=== PATIENT | male | born 1945 | race Two or more races ===

== ENCOUNTER 2019-07-11 12:03 | Inpatient (IN) | payer MEDICAID, OTHER ==
[~2019-07-11] VITALS: Ht 175.3 cm; Wt 84.0 kg
[2019-07-11 13:30] LABS: Basophils # (auto) 0 uL; Basophils % (auto) 0.3 % (0.0-2.0); Eosinophils # (auto) 0.1 uL; Eosinophils % (auto) 1.2 % (0.0-7.0); Hematocrit 38.4 % (41.0-53.0); Hemoglobin 12.9 g/dL (13.5-17.5); Lymphocytes # (auto) 1.1 uL; Lymphocytes % (auto) 11.8 % (10.0-50.0); Mean Corpuscular Hemoglobin 29.6 pg (28.0-32.0); Mean Corpuscular Hgb Conc. 33.5 g/dL (32.0-36.0); Mean Corpuscular Volume 88.3 fL (80.0-100.0); Monocytes # (auto) 1.4 uL; Monocytes % (auto) 15.8 % (0.0-12.0); Neutrophils # (auto) 6.3 uL; Neutrophils % (auto) 70.9 % (37.0-80.0); Platelet Count (auto) 250 10^3/uL (140-450); Red Blood Cells 4.35 10^6/uL (4.5-5.90); Red Cell Distribution Width 13.7 % (11.8-14.3); White Blood Cell 8.9 10^3/uL (4.4-10.8)
[2019-07-11 13:53] LABS: Alanine Aminotransferase 51 U/L (16-61); Albumin 3.1 g/dL (3.4-5.0); Anion Gap 8 (5-15); Aspartate Aminotransferase 35 U/L (15-37); BUN/Creatinine Ratio 13.2; Blood Urea Nitrogen 15 mg/dL (7-18); Calcium 8.7 mg/dL (8.5-10.1); Carbon Dioxide 24 mmol/L (21-32); Chloride 104 mmol/L (98-107); GFR African American 81 mL/min; GFR Non-African American 67 mL/min; Glucose 106 mg/dL (74-106); INR 1.03 (0.9-1.15); Partial Thromboplastin Time 35.4 sec (23.64-32.05); Potassium 3.9 mmol/L (3.5-5.1); Sodium 136 mmol/L (136-145)
[2019-07-11 13:59] LABS: Alkaline Phosphatase 173 U/L (45-117); Total Protein 7.9 g/dL (6.4-8.2)
[2019-07-11] MEDS ORDERED: ONDANSETRON HCL 4 MG/2 ML VIAL IV PRN (15:00)
[2019-07-11] MEDS ORDERED: cefTRIAXone 1GM/50ML D5W 50 ML IV ONE (15:00)
[2019-07-11] MEDS ORDERED: MORPHINE SULFATE 4 MG/ML SYR/VIAL IV PRN (15:00)
[2019-07-11] MEDS ORDERED: HYDROcodone-ACET 5/325MG TAB PO PRN (15:00)
[2019-07-11] MEDS ORDERED: LEVOFLOXACIN 500MG 100 ML IV ONE (15:00)
[2019-07-11] MEDS ORDERED: AZITHROMYCIN 500MG/ 250ML 250 ML IV ONE (15:00)
[2019-07-11] MEDS ORDERED: IOHEXOL 300 MG/ML 100ML BOTTLE IJ ONE (15:33)
[2019-07-11] MEDS: SODIUM CHLORIDE 0.9% 1,000 ML IV SCH (16:35)
[2019-07-11 17:43] LABS: Urine Bacteria NONE SEEN /hpf (None Seen); Urine Blood TRACE /uL (Negative); Urine Specific Gravity 1.033 (1.001-1.035); Urine WBC <1 /hpf (0 - 3)
--- NOTE | 2019-07-11 17:45 | NUR ---
MS admit from [facility] admitted to tele/MS after SBAR received. Patient oriented to MARIA ISABEL DE LA TORRE RN primary RN, unit, room, bed, and unit policies regarding patient care and visiting hours. patient is Mohawk speaking. Patient is on room air, with complaints of shortness of breath. Patient placed on 2L NC. Patient denies pain at this time. Reviewed plan of care with patient and family, both verbalized understanding. Bed alarm on for safety. Bed in low and locked position, call light within reach. Will continue to monitor Q1 hour and PRN. Family at bedside.
[2019-07-11 18:21] VITALS: BP 141/87
[2019-07-11] MEDS ORDERED: PAR20T PO (19:16)
[2019-07-11] MEDS ORDERED: LOSA100T22 PO (19:16)
[2019-07-11] MEDS ORDERED: OMEP20TA PO (19:16)
[2019-07-11] MEDS ORDERED: ASPI-404 PO (19:16)
[2019-07-11] MEDS ORDERED: NAP500T PO (19:16)
[2019-07-11] MEDS ORDERED: ATOR10TA52 PO (19:16)
[2019-07-11] MEDS ORDERED: TEMAZEPAM 15 MG CAP PO PRN (20:00)
--- NOTE | 2019-07-11 20:30 | NUR ---
PATIENT DAUGHTER REY, HAD QUESTIONS REGARDING PT HOME MEDICATIONS. UPDATED PATIENT HOME MEDICATION LIST INFORMED MEDICATIONS NEED TO BE APPROVED BY PRIMARY CARE PROVIDER AND HOMES MEDICATIONS SENT BACK HOME. DAUGHTER VERBALIZES UNDERSTANDING, AND INFORMED HER PROVIDER WILL BE MADE AWARE.
[2019-07-11] MEDS: ACETAMINOPHEN 500 MG TAB PO PRN (21:27)
[2019-07-11 22:00] VITALS: BP 116/55
[2019-07-11] MEDS ORDERED: ATORVASTATIN 20 MG TAB PO SCH (22:00)
[2019-07-12] MEDS: SODIUM CHLORIDE 0.9% 1,000 ML IV SCH (04:20)
[2019-07-12 05:00] VITALS: BP 117/61
--- NOTE | 2019-07-12 08:00 | NUR ---
BEGINNING OF SHIFT. PATIENT IS ALERT AND ORIENTED X2. HONG KONGER SPEAKING ONLY. PATIENT IS ON OXYGEN 2L. VITAL SIGNS WNL. PATIENT EXHIBITS COARSE BREATH SOUNDS AND COUGH. PATIENT SHOWS NO ACUTE S/S OF DISTRESS. FAMILY IS AT BEDSIDE. BED IS IN LOWEST POSITION, SIDE RAILS UP X2, AND CALL LIGHT WITHIN REACH.
[2019-07-12 08:36] LABS: Basophils # (auto) 0.1 uL; Basophils % (auto) 0.6 % (0.0-2.0); Eosinophils # (auto) 0.4 uL; Eosinophils % (auto) 4.2 % (0.0-7.0); Hematocrit 38.4 % (41.0-53.0); Lymphocytes # (auto) 1.8 uL; Lymphocytes % (auto) 17.1 % (10.0-50.0); Mean Corpuscular Hemoglobin 29.1 pg (28.0-32.0); Mean Corpuscular Hgb Conc. 31.3 g/dL (32.0-36.0); Monocytes % (auto) 9.7 % (0.0-12.0); Neutrophils % (auto) 68.4 % (37.0-80.0); Nucleated Red Blood Cells % 0.1 %; Platelet Count (auto) 293 10^3/uL (140-450); Red Blood Cells 4.13 10^6/uL (4.5-5.90); White Blood Cell 10.3 10^3/uL (4.4-10.8)
[2019-07-12 08:50] LABS: BUN/Creatinine Ratio 28.4; Calcium 8.6 mg/dL (8.5-10.1); Potassium 4.4 mmol/L (3.5-5.1)
[2019-07-12] MEDS ORDERED: cefTRIAXone 1GM/50ML D5W 50 ML IV SCH (09:00)
[2019-07-12] MEDS ORDERED: PARoxetine 20 MG TAB PO SCH (10:00)
[2019-07-12] MEDS ORDERED: LOSARTAN POTASSIUM 50 MG TAB PO SCH (10:00)
[2019-07-12] MEDS: AZITHROMYCIN 500MG/ 250ML 250 ML IV SCH (10:21)
[2019-07-12] MEDS: ASPirin 81 mg TAB PO SCH (10:21)
--- NOTE | 2019-07-12 12:30 | NUR ---
DR. KITCHEN AT BEDSIDE. Jaquelin STATES PATIENT WILL BE UPGRADED TO [facility] FOR FURTHER INTERVENTION. PATIENT HAD COARSE BREATH SOUNDS AND WHEEZING. MED NEBS ORDERED. NEW ORDERS PLACED FOR DIFFERENT ANTIBIOTICS. PATIENT FAMILY AT BEDSIDE. PATIENT IS ALERT AND ORIENTED X2. PATIENT AND FAMILY VERBALIZED UNDERSTANDING TO PLAN OF CARE DISCUSSED BY Jaquelin AND RN.
[2019-07-12 13:00] VITALS: BP 120/60
--- NOTE | 2019-07-12 13:45 | NUR ---
RESPIRATORY CALLED FOR R/T TX. RT STATED THEY WILL BE TO ROOM NEFTALI.
[2019-07-12] MEDS: PIPERACILLIN-TAZOB 3.375GM 100 ML IV SCH ×2 (13:46→22:04)
[2019-07-12 13:50] LABS: BUN/Creatinine Ratio 13.2; Calcium 8.8 mg/dL (8.5-10.1); Potassium 4.2 mmol/L (3.5-5.1)
[2019-07-12] MEDS: IPRATROPIUM BROM 0.5 MG/2.5ML INH SOL NEB SCH ×3 (13:51→21:30)
[2019-07-12] MEDS: ALBUTEROL SULF 2.5 MG/0.5ML(0.5%) NEB SOLN NEB SCH ×3 (13:52→21:30)
--- NOTE | 2019-07-12 15:11 | NUR ---
REPORT GIVEN TO HOLLY IN [facility].
[2019-07-12 15:43] VITALS: BP 119/66
--- NOTE | 2019-07-12 15:50 | NUR ---
Admit to [facility] J[facility] to [facility] from Tele floor via hospital bed on portable 02. Patient transferred to bed, connected to unit monitoring and oxygen, and weighed by [facility]. Patient primary Tamazight speaking, utilize [employer] Champagne Maker System in communicating with Patient. Patient awake and alert. SOB and wheezing, on 2 LPM oxygen via nasal cannula, saturation 93%. Denies pain at this times. See interventions for complete assessment. Bed locked on low poistion, side rails up x2, bed alarms on at all times call fitzpatrick within reach, instructed to call for needed assisstance. Oriented patient and daughter Lina to Florence Talavera primary RN, unit, room, bed, and unit policies regarding patient care and visiting hours. All questions and concerns addressed, patient verbalized understanding. Will continue to monitor.
--- NOTE | 2019-07-12 15:56 | NUR ---
PATIENT TRANSPORTED TO [facility] BED 262 WITH HOLLY SCHILLING PATIENT FAMILY AWARE OF TRANSFER PATIENT SHOWED NO S/S OF DISTRESS, SOB, OR PAIN AT TIME OF DEPARTURE.
[2019-07-12 16:00] VITALS: BP 143/76
[2019-07-12] MEDS: LINEZOLID 600MG/300ML 300 ML IV SCH (16:52)
--- NOTE | 2019-07-12 19:10 | NUR ---
OPENING SHIFT RECEIVED REPORT FROM DAY SHIFT. ASSUMED CARE OF PATIENT. PATIENT IN BED WATCHING TV WITH NO SIGNS OR SYMPTOMS OF SOB, PAIN OR DISTRESS. CURRENTLY ON 2L 02 NASAL CANNULA, 02 SAT - 93%. LEFT FOREARM IV - CLEAN/DRY/INTACT. Revelation TRANSLATE USED TO TRANSLATE AND UPDATED PATIENT ON PLAN OF CARE. REPOSITIONED FOR COMFORT. BED IN LOWEST POSITION, SIDE RAILS UP X2, CALL LIGHT WITHIN REACH. WILL CONTINUE TO MONITOR.
[2019-07-12 20:00] VITALS: BP 151/78
[2019-07-12] MEDS ORDERED: TEMA15CA91 PO (21:39)
--- NOTE | 2019-07-12 22:40 | NUR ---
PM CARE PERFORMED PM CARE WITH CHG WIPES AND WASH CLOTHS TO THE FACE. PARTAL LINEN CHANGE AND GOWN CHANGED. REPOSITIONED FOR COMFORT. SKIN REASSESSED AT THIS TIME. BED IN LOWEST POSITION, SIDE RAILS UP X2, CALL LIGHT WITHIN REACH. WILL CONTINUE TO MONITOR.
[2019-07-13] VITALS: BP 136/72
[2019-07-13 04:00] VITALS: BP 111/75
[2019-07-13] MEDS: LINEZOLID 600MG/300ML 300 ML IV SCH (04:46)
[2019-07-13 05:35] LABS: Basophils # (auto) 0.1 uL; Basophils % (auto) 0.9 % (0.0-2.0); Eosinophils # (auto) 0.1 uL; Eosinophils % (auto) 0.9 % (0.0-7.0); Hematocrit 36.3 % (41.0-53.0); Hemoglobin 12.2 g/dL (13.5-17.5); Lymphocytes # (auto) 1.1 uL; Mean Corpuscular Hemoglobin 29.8 pg (28.0-32.0); Mean Corpuscular Hgb Conc. 33.7 g/dL (32.0-36.0); Mean Corpuscular Volume 88.4 fL (80.0-100.0); Monocytes # (auto) 1.5 uL; Monocytes % (auto) 15.6 % (0.0-12.0); Neutrophils # (auto) 6.6 uL; Neutrophils % (auto) 70.6 % (37.0-80.0); Platelet Count (auto) 259 10^3/uL (140-450); Red Cell Distribution Width 13.5 % (11.8-14.3); White Blood Cell 9.3 10^3/uL (4.4-10.8)
[2019-07-13 05:51] LABS: BUN/Creatinine Ratio 9.5; Calcium 8.4 mg/dL (8.5-10.1); Potassium 4.1 mmol/L (3.5-5.1)
[2019-07-13] MEDS: ALBUTEROL SULF 2.5 MG/0.5ML(0.5%) NEB SOLN NEB SCH ×5 (06:31→21:54)
[2019-07-13] MEDS: IPRATROPIUM BROM 0.5 MG/2.5ML INH SOL NEB SCH ×5 (06:31→21:54)
[2019-07-13] MEDS: PIPERACILLIN-TAZOB 3.375GM 100 ML IV SCH ×3 (06:46→22:06)
--- NOTE | 2019-07-13 07:28 | NUR ---
END OF SHIFT REPORT GIVEN TO DAY SHIFT RN. CARE ENDORSED.
[2019-07-13 08:00] VITALS: BP 152/72
--- NOTE | 2019-07-13 08:00 | NUR ---
REPORT REPORT RECEIVED FROM BERNADETTE RNBONNIE. PT RESTING IN BED WITH NO DISTRESS NOTED. VSS. CONTINUE TO MONITOR.
--- NOTE | 2019-07-13 08:30 | NUR ---
IN FOR ASSESSMENT AND PT EATING BREAKFAST. DENIES ANY PAIN OR SOB. WILL ASSESS AFTER PT FINISHES BREAKFAST.
--- NOTE | 2019-07-13 08:50 | NUR ---
ASSESSMENT PT AWAKE AND A/O X4. MOSTLY VIETNAMESE SPEAKING. ABLE TO FOLLOW SIMPLE PHRASES IN [place]. MOVES ALL EXTREMITIES AND REPOSITIONS SELF IN BED. LUNGS WITH INSPIRATORY RHONCHI AND EXPIRATORY WHEEZING NOTED. O2 AT 3 L/M VIA NC WITH O2 SAT OF 93%. TELE ST [address] IN LEAD I AND II. DENIES ANY PAIN OR SOB. PALPABLE PULSES TO ALL EXTREMITIES. ABD SOFT WITH + BOWEL SOUNDS NOTED. LAST BM WAS 07/12. VOIDS VIA URINAL, NONE AT THIS TIME. IV OF NS AT 75 ML/HR TO LFA AND SITE BENIGN. RAILS UP X4 AND BED IN LOW POSITION FOR PT SAFETY. CONTINUE TO MONITOR.
[2019-07-13] MEDS: ASPirin 81 mg TAB PO SCH (10:33)
[2019-07-13] MEDS: AZITHROMYCIN 500MG/ 250ML 250 ML IV SCH (10:33)
[2019-07-13] MEDS: SODIUM CHLORIDE 0.9% 1,000 ML IV SCH (10:34)
[2019-07-13] MEDS ORDERED: FUROSEMIDE 40 MG/4 ML VIAL IV ONE (11:00)
--- NOTE | 2019-07-13 11:10 | NUR ---
MD VISIT PT SEEN AND EXAMINED BY DR KITCHEN. LUNGS REMAIN CONGESTED AND WITH EXPIRATORY WHEEZES. ORDERS TO STOP IVF AND GIVE LASIX 40 MG IV X1 AND ONE TIME POTASSIUM 20 mEQ PO.
[2019-07-13] MEDS ORDERED: POTASSIUM CHL 20 Meq TABLET PO ONE (11:15)
[2019-07-13 12:00] VITALS: BP 129/68
--- NOTE | 2019-07-13 15:40 | NUR ---
INCONTINENT OF SMALL AMOUNT OF FORMED BROWN BM. PERICARE GIVEN AND PARTIAL LINEN CHANGE DONE.
[2019-07-13 16:00] VITALS: BP 131/85
--- NOTE | 2019-07-13 17:55 | NUR ---
INCONTINENT OF URINE AND COMPLETE LINEN CHANGE DONE. PT NOW COMPLAINING OF BURNING PAIN FROM LEFT IP DOWN TO HIS FOOT. STATES HE HAS BEEN HAVING IT OFF AND ON SINCE YESTERDAY. PAGED DR MORENO TO NOTIFY.
--- NOTE | 2019-07-13 18:20 | NUR ---
SPOKE WITH DR MORENO REGARDING PT'S COMPLAINT OF BURNING PAIN STARTING IN THE LEFT HIP AND GOING DOWN TO HIS FOOT. HE STATES IT STARTED YESTERDAY AND COMES AND GOES. MD WANTS TO ADMINISTER TYLENOL 500 MG PO Q 8 HRS PRN.
[2019-07-13] MEDS: ACETAMINOPHEN 500 MG TAB PO PRN (18:47)
--- NOTE | 2019-07-13 18:51 | NUR ---
PAIN PT MEDICATED WITH TYLENOL 500MG PO FOR C/O PAIN FROM LEFT HIP DOWN TO FOOT. RATES 10/10 BUT STATES PAIN COMES AND GOES.
--- NOTE | 2019-07-13 19:40 | NUR ---
REPORT GIVEN TO INDIGO FLEMING RN.
--- NOTE | 2019-07-13 19:45 | NUR ---
OPENING. PT AWAKE AND A/O X4. ABLE TO FOLLOW SIMPLE COMMANDS. LUNGS COURSE THROUGHOUT. O2 AT 3 L/M VIA NASAL CANNULA WITH O2 SAT OF 93%. SR ON METALLIC YARN SLITTING MACHINE OPERATOR. PALPABLE PULSES X4 EXTREMITIES. NO EDEMA NOTED. DENIES ANY PAIN. ABD SOFT, BOWEL SOUNDS PRESENT. NO BLADDER DISTENSION. SKIN INTACT. EDUCATED PT BRUSHING OPERATOR LIGHT AND NOT TO GET UP WITHOUT ASSISTANCE, VERBALIZED UNDERSTANDING. BED IN LOWEST LOCKED POSITION, IN FULL VIEW OF NURSES STATION. NO PAIN OR DISTRESS AT THIS TIME. VSS, WILL CONTINUE TO MONITOR.
[2019-07-13 20:06] VITALS: BP_SYST 141; BP_SYST 88; BP_DIAS 67
[2019-07-14] VITALS (7 sets, daily range): BP systolic 102–158; BP diastolic 66–98
[2019-07-14] MEDS: PIPERACILLIN-TAZOB 3.375GM 100 ML IV SCH ×3 (05:24→21:57)
[2019-07-14 06:07] LABS: Potassium 4.4 mmol/L (3.5-5.1)
[2019-07-14 06:14] LABS: BUN/Creatinine Ratio 10.7; Calcium 9.3 mg/dL (8.5-10.1)
[2019-07-14] MEDS: ALBUTEROL SULF 2.5 MG/0.5ML(0.5%) NEB SOLN NEB SCH ×5 (06:18→22:32)
[2019-07-14] MEDS: IPRATROPIUM BROM 0.5 MG/2.5ML INH SOL NEB SCH ×5 (06:18→22:33)
--- NOTE | 2019-07-14 07:20 | NUR ---
RECEIVED PATIENT SITTING UP IN THE BED, A/O TIMES 4 WHEN AWAKEN , USING O2 AT 3.5L BY N/C, USES THE URINAL, SPEAKS SOMALI BUT UNDERSTAND A LITTLE PORTUGUESE , ABLE TO FOLLOW COMMANDS, LFA 20G SALINE LOCK FLUSHED AND PATENT DENIES PAIN HAS A DRY COUGH
--- NOTE | 2019-07-14 08:20 | NUR ---
SAT UP IN BED AND ATE HIS BREAKFAST NO HELP NEEDED
--- NOTE | 2019-07-14 09:00 | NUR ---
DAUGHTER IN TO VISIT WITH THE PATIENT
[2019-07-14] MEDS: AZITHROMYCIN 500MG/ 250ML 250 ML IV SCH (09:45)
[2019-07-14] MEDS: ASPirin 81 mg TAB PO SCH (09:45)
[2019-07-14] MEDS: FUROSEMIDE 40 MG/4 ML VIAL IV SCH (09:45)
--- NOTE | 2019-07-14 09:45 | NUR ---
EXPLAIN MEDICATIONS TO THE PATIENT AND HIS DAUGHTER REGARDING THE DOSAGE,USAGE, AND THE SIDE EFFECTS, VERBALIZED THAT THEY UNDERSTOOD AND MEDS GIVEN ORDERED
[2019-07-14] MEDS: POTASSIUM CHL 20 Meq TABLET PO SCH (09:46)
--- NOTE | 2019-07-14 10:40 | NUR ---
DAUGHTER LEFT AND WENT HOME
--- NOTE | 2019-07-14 11:40 | NUR ---
BREATHING TREATMENT BEING GIVEN
--- NOTE | 2019-07-14 12:30 | NUR ---
SAT UP IN THE BED AND ATE HIS LUNCH NO HELP NEEDED
--- NOTE | 2019-07-14 12:33 | NUR ---
Assessment Pt is a 74 yr old Dominican speaking, alert and oriented, male. Assessment conducted through daughter Lorenzo, who translated. Pt lives with daughter Porfirio in the home and with Lorenzo on the weekend. Lorenzo's contact info is [phone] and Porfirio's is [phone]. Prior to admit, pt used a walker to assist with ADL's, but otherwise functioned independently. Porfirio helps to cook, clean and supports the pt financially. Pt stated that he was admitted with pneumonia. In CM meeting, nurse mentioned that the pt might need 02 in the home. Pt didn't know if he had AD on file. Pt's daughter can transport home upon d/c. Pt plans to d/c home upon medical clearance. Addendum: 07/14/19 at 1240 by VANDANA HUTCHINSON SS Amended: Links added.
[2019-07-14] MEDS ORDERED: VANCOMYCIN PER PHARMACY 0 MG IV SCH (13:15)
--- NOTE | 2019-07-14 13:30 | NUR ---
SITTING UP IN BE NO COMPLAINTS DR KITCHEN INTO SEE THE PATIENT AND WROTE FOR TRANSFER TO TELE
--- NOTE | 2019-07-14 14:30 | NUR ---
LYING IN BED WITH EYES CLOSED, NO COMPLAINTS
--- NOTE | 2019-07-14 15:40 | NUR ---
PATIENT BEING TRANSFERRED TO ROOM 246B BY THE BED WITH NURSE BOLA
--- NOTE | 2019-07-14 16:27 | NUR ---
DAUGHTER IN TO SEE THE PATIENT AND EXPRESS TO HER THAT HE IS BEING TRANSFERRED TO ANOTHER ROOM
--- NOTE | 2019-07-14 16:36 | NUR ---
PLACED ON TELE 11 AND REPORT CALLED TO BOLA SCHILLING, PATIENT GOING TO ROOM 246B BY THE BED
--- NOTE | 2019-07-14 16:50 | NUR ---
PATIENT TRANSFERRED TO ROOM 246B FROM [facility]. REPORT RECEIVED FROM NURSE AHN. PATIENT ORIENTED TO HIS ROOM AND PLAN OF CARE. PATIENT SEEMS CALM. NO SIGNS OF DISTRESS OR REPORTS OF PAIN. WILL CONTINUE TO ROUND ON PATIENT. FAMILY AND PATIENT ENCOURAGED TO CALL IF THEY NEED ANYTHING.
[2019-07-14] MEDS: VANCOMYCIN 750mg/250ml 250 ML IV SCH (17:32)
--- NOTE | 2019-07-14 19:20 | NUR ---
Opening Shift Note Assumed care of patient, awake and alert. No S/S of distress/SOB or pain. Bed in lowest locked position, side rails up x2, call light within reach. Family at bedside. Instructed on POC through label coder and to call for assist PRN, will continue to monitor for changes Q1hr and PRN.
--- NOTE | 2019-07-15 00:30 | NUR ---
Epistaxis Entered room after patient hit call fitzpatrick to discover patient had a bloody nose. Epistaxis ceased prior to this RN entering patient's room. No s/s of distress noted. Patient cleaned and linens changed. Humidifier provided for oxygen. Patient tolerated well, will continue care.
[2019-07-15] MEDS: VANCOMYCIN 750mg/250ml 250 ML IV SCH ×2 (04:34→18:14)
[2019-07-15 05:15] VITALS: BP 111/55
[2019-07-15] MEDS: IPRATROPIUM BROM 0.5 MG/2.5ML INH SOL NEB SCH ×5 (06:01→22:53)
[2019-07-15] MEDS: ALBUTEROL SULF 2.5 MG/0.5ML(0.5%) NEB SOLN NEB SCH ×5 (06:01→22:53)
[2019-07-15] MEDS: PIPERACILLIN-TAZOB 3.375GM 100 ML IV SCH (06:40)
[2019-07-15 06:58] LABS: Calcium 8.8 mg/dL (8.5-10.1); Potassium 4.3 mmol/L (3.5-5.1)
--- NOTE | 2019-07-15 07:05 | NUR ---
Closing Note Patient lying in bed, awake and alert. No s/s of distress. Bed in lowest locked position, side rails up x2, call light within reach, bed alarm on. Care endorsed to dayshift RN.
--- NOTE | 2019-07-15 07:30 | NUR ---
Opening Shift Note Assumed care of patient, awake and alert. No S/S of distress/SOB or pain. Instructed on POC and to call for assist PRN, will continue to monitor for changes Q1hr and PRN.
[2019-07-15 07:31] VITALS: BP 111/55
[2019-07-15 09:00] VITALS: BP 139/78
[2019-07-15] MEDS: ASPirin 81 mg TAB PO SCH (10:15)
[2019-07-15] MEDS: POTASSIUM CHL 20 Meq TABLET PO SCH (10:15)
[2019-07-15] MEDS: FUROSEMIDE 40 MG/4 ML VIAL IV SCH (10:15)
--- NOTE | 2019-07-15 12:40 | NUR ---
Nutrition Assessment Notes Please see attached link for complete assessment Est. Needs BW 86 [id number] kcal (23-25 kcal/kgBW), 86-94 gms pro (1.0-1.1 gms/kgBW). Will continue to monitor pertinent labs and reassess nutrient need prn Addendum: 07/15/19 at [address] Amended: Links added.
[2019-07-15 13:00] VITALS: BP 138/91
[2019-07-15] MEDS: cefTRIAXone 1GM/50ML D5W 50 ML IV SCH (13:24)
[2019-07-15 17:00] VITALS: BP 125/72
--- NOTE | 2019-07-15 19:30 | NUR ---
Opening Shift Note Report received from day shift RN. Assumed care of patient. Patient awake sitting in bed and A&O x4. No S/S of distress/SOB noted and denies pain at this time. Bed locked and in lowest position with side rails up x2. Call light left within reach. Instructed on POC and to call for assist PRN, will continue to monitor for changes Q1hr and PRN.
[2019-07-15 22:00] VITALS: BP 132/72
[2019-07-16] MEDS: VANCOMYCIN 750mg/250ml 250 ML IV SCH (04:27)
[2019-07-16 05:00] VITALS: BP 119/70
[2019-07-16 05:15] LABS: BUN/Creatinine Ratio 19.8; Magnesium 2.6 mg/dL (1.6-2.6); Potassium 4.7 mmol/L (3.5-5.1)
[2019-07-16] MEDS: IPRATROPIUM BROM 0.5 MG/2.5ML INH SOL NEB SCH ×4 (06:43→18:04)
[2019-07-16] MEDS: ALBUTEROL SULF 2.5 MG/0.5ML(0.5%) NEB SOLN NEB SCH ×4 (06:43→18:04)
[2019-07-16 08:36] VITALS: BP 129/88
[2019-07-16] MEDS: ASPirin 81 mg TAB PO SCH (09:29)
[2019-07-16] MEDS: cefTRIAXone 1GM/50ML D5W 50 ML IV SCH (09:29)
[2019-07-16] MEDS: POTASSIUM CHL 20 Meq TABLET PO SCH (09:30)
[2019-07-16 13:00] VITALS: BP 118/70
[2019-07-16 17:00] VITALS: BP 17/89
[2019-07-16] MEDS: VANCOMYCIN 1GM/250ML 250 ML IV SCH (18:10)
--- NOTE | 2019-07-16 19:40 | NUR ---
Opening Shift Note Assumed care of patient, awake, AAOx4. No S/S of distress/SOB or pain. Norwegian speaking only. Bed in lowest locked position, side rails up x2, call light within reach. On 2L oxygen via nasal cannula, ambulatory with standby assist. Uses cane and walker at home. Instructed on POC and to call for assist PRN, will continue to monitor for changes Q1hr and PRN.
[2019-07-16 22:00] VITALS: BP 111/73
[2019-07-17 05:17] VITALS: BP 143/75
[2019-07-17] MEDS: VANCOMYCIN 1GM/250ML 250 ML IV SCH (05:40)
[2019-07-17] MEDS: ALBUTEROL SULF 2.5 MG/0.5ML(0.5%) NEB SOLN NEB SCH ×5 (06:49→22:29)
[2019-07-17] MEDS: IPRATROPIUM BROM 0.5 MG/2.5ML INH SOL NEB SCH ×5 (06:49→22:29)
--- NOTE | 2019-07-17 06:50 | NUR ---
Respiratory note: PATIENT SLEEPING, DID NOT WANT TO BE WOKEN FOR 0600 MED-NEB TX. TX HELD AT THIS TIME, PATIENT IN NO RESPIRATORY DISTRESS.
--- NOTE | 2019-07-17 07:30 | NUR ---
Opening Shift Note Assumed care of patient, awake and alert, lying on bed. No S/S of distress/SOB or pain. Instructed on POC and to call for assist PRN, will continue to monitor for changes Q1hr and PRN.
[2019-07-17 08:47] VITALS: BP 133/80
[2019-07-17] MEDS: cefTRIAXone 1GM/50ML D5W 50 ML IV SCH (09:32)
[2019-07-17] MEDS: ASPirin 81 mg TAB PO SCH (09:32)
[2019-07-17] MEDS: POTASSIUM CHL 20 Meq TABLET PO SCH (09:32)
--- NOTE | 2019-07-17 12:05 | NUR ---
PT SEEN BY DR. KITCHEN
[2019-07-17] MEDS ORDERED: FUROSEMIDE 40 MG/4 ML VIAL IV ONE (12:15)
[2019-07-17 13:24] VITALS: BP 134/73
[2019-07-17 16:54] VITALS: BP 122/76
--- NOTE | 2019-07-17 17:55 | NUR ---
PT AMBULATING IN THE HALLWAY USING WALKER, PT TOLERATED IT WELL.
--- NOTE | 2019-07-17 20:05 | NUR ---
open note assumed care of pt. upon entering room pt eyes closed, breathing even and unlabored. pt on 2L NC no s/s distress noted. pt bed locked, low and 2x rails up. call light in reach, will return to update pt on plan of care at later time. tele monitor in place, this nurse will round q1hr and prn.
[2019-07-17 21:49] VITALS: BP 90/53
[2019-07-18 05:33] VITALS: BP 137/83
[2019-07-18 06:03] LABS: Basophils # (auto) 0.1 uL; Eosinophils # (auto) 0.3 uL; Hemoglobin 14.1 g/dL (13.5-17.5); Monocytes # (auto) 0.7 uL; Neutrophils # (auto) 6.3 uL; White Blood Cell 8.8 10^3/uL (4.4-10.8)
[2019-07-18 06:04] LABS: Basophils % (auto) 0.9 % (0.0-2.0); Eosinophils % (auto) 2.9 % (0.0-7.0); Hematocrit 42.4 % (41.0-53.0); Lymphocytes # (auto) 1.5 uL; Lymphocytes % (auto) 16.6 % (10.0-50.0); Mean Corpuscular Hemoglobin 29.5 pg (28.0-32.0); Mean Corpuscular Hgb Conc. 33.2 g/dL (32.0-36.0); Mean Corpuscular Volume 88.8 fL (80.0-100.0); Monocytes % (auto) 8.4 % (0.0-12.0); Neutrophils % (auto) 71.2 % (37.0-80.0); Platelet Count (auto) 465 10^3/uL (140-450); Red Blood Cells 4.78 10^6/uL (4.5-5.90); Red Cell Distribution Width 13.8 % (11.8-14.3)
[2019-07-18 06:20] LABS: BUN/Creatinine Ratio 25.7; Calcium 9.5 mg/dL (8.5-10.1); Potassium 4.9 mmol/L (3.5-5.1)
[2019-07-18] MEDS: IPRATROPIUM BROM 0.5 MG/2.5ML INH SOL NEB SCH ×5 (06:58→22:27)
[2019-07-18] MEDS: ALBUTEROL SULF 2.5 MG/0.5ML(0.5%) NEB SOLN NEB SCH ×5 (06:58→22:27)
[2019-07-18 08:33] VITALS: BP 137/83
[2019-07-18 09:00] VITALS: BP 140/79
[2019-07-18] MEDS: LEVOFLOXACIN 250 MG TAB PO SCH (09:51)
[2019-07-18] MEDS: POTASSIUM CHL 20 Meq TABLET PO SCH (09:51)
[2019-07-18] MEDS: ASPirin 81 mg TAB PO SCH (09:51)
[2019-07-18] MEDS: FUROSEMIDE 40 MG/4 ML VIAL IV SCH (09:51)
--- NOTE | 2019-07-18 12:45 | NUR ---
PT SEEN BY JENNIFER DUDLEY FOR CARDIOLOGY CONSULT, PER ELISA, PT WILL BE SCHEDULED FOR [facility] TOMORROW, PROCEDURE EXPLAINED TO THE PT AND FAMILY. PT AND FAMILY VERBALIZED UNDERSTANDING.
[2019-07-18 13:00] VITALS: BP 138/82
--- NOTE | 2019-07-18 14:40 | NUR ---
Nutrition Follow-up Notes Wt.: 82.7 kg as of yesterday Pt's on oxygen via nasal cannula, asleep, no immediate family member at bedside during rounds this morning. Pt's no signs of distress noted earlier, currently on Mechanical Soft Regular diet with adequate PO intake aeb 95% ave. consumed meals (x6) in last 2.5 days. Noted pt's for active Cardiology consult. Est. Needs BW 86 [id number] kcal (23-25 kcal/kgBW), 86-94 gms pro (1.0-1.1 gms/kgBW). Will continue to monitor pertinent labs and reassess nutrient need prn Labs: BUN 20 H, Alb 3.1 L Skin: Hakeem scale 19, low risk, skin intact per supervisor audit clerks. GI: Pt had 2x BM 07/16/19 per supervisor audit clerks. PES: Altered nutrition related lab values r/t current/chronic medical condition aeb elev BUN hyperglycemia, mild hypoalbuminemia Will continue to monitor PO intake, skin status, pertinent labs and weight trend. F/u in 3 to 5 days. Rec.: 1.) Continue close supervision during meals. 2.) If Albumin continues trending down, consider Prostat 1 pkt BID. 3.) Refer pt to RD for further nutrition education and weight monitoring upon discharge. 4.) Continue current plan of
[2019-07-18 17:00] VITALS: BP 125/71
--- NOTE | 2019-07-18 19:40 | NUR ---
Opening Shift Note Assumed care of patient, awake and alert. No S/S of distress/SOB or pain. Instructed on POC and to call for assist PRN. Bed in lowest locked position, call light within reach, side rails up x2, fall precautions in place. Will continue to monitor for changes Q1hr and PRN.
[2019-07-18 22:00] VITALS: BP 151/71
[2019-07-18] MEDS ORDERED: ATORVASTATIN 20 MG TAB PO SCH (22:00)
[2019-07-19 05:00] VITALS: BP 148/88
[2019-07-19 06:35] LABS: Basophils # (auto) 0.1 uL; Basophils % (auto) 1.1 % (0.0-2.0); Eosinophils # (auto) 0.2 uL; Eosinophils % (auto) 1.7 % (0.0-7.0); Hematocrit 43.4 % (41.0-53.0); Hemoglobin 14.5 g/dL (13.5-17.5); Lymphocytes # (auto) 1.6 uL; Lymphocytes % (auto) 15.7 % (10.0-50.0); Mean Corpuscular Hemoglobin 29.6 pg (28.0-32.0); Mean Corpuscular Hgb Conc. 33.5 g/dL (32.0-36.0); Mean Corpuscular Volume 88.6 fL (80.0-100.0); Monocytes # (auto) 0.7 uL; Monocytes % (auto) 7.2 % (0.0-12.0); Neutrophils # (auto) 7.4 uL; Neutrophils % (auto) 74.3 % (37.0-80.0); Nucleated Red Blood Cells % 0.1 %; Platelet Count (auto) 486 10^3/uL (140-450); Red Cell Distribution Width 13.8 % (11.8-14.3); White Blood Cell 9.9 10^3/uL (4.4-10.8)
[2019-07-19 06:50] LABS: INR 1.1 (0.9-1.15); Partial Thromboplastin Time 30.3 sec (23.64-32.05)
[2019-07-19 06:52] LABS: BUN/Creatinine Ratio 22.9; Calcium 9.5 mg/dL (8.5-10.1); Potassium 4.9 mmol/L (3.5-5.1)
[2019-07-19] MEDS: IPRATROPIUM BROM 0.5 MG/2.5ML INH SOL NEB SCH ×5 (07:04→22:13)
[2019-07-19] MEDS: ALBUTEROL SULF 2.5 MG/0.5ML(0.5%) NEB SOLN NEB SCH ×5 (07:04→22:13)
[2019-07-19] MEDS ORDERED: IOHEXOL 350 MG/ML 100ML IJ ONE (07:09)
[2019-07-19] MEDS ORDERED: LIDOCAINE 2%HCL (LOCAL ANESTH.) INJ 20ML MDV ONE (07:09)
--- NOTE | 2019-07-19 07:20 | NUR ---
mill labor supervisor Patient taken down to greens laborer, patient tolerated well. Will inform day shift RN.
--- NOTE | 2019-07-19 07:30 | NUR ---
Opening Shift NotE PT IN POT WASHER.
[2019-07-19] MEDS ORDERED: ANGIOMAX 250 MG VIAL IV ONE (07:54)
[2019-07-19] MEDS ORDERED: fentaNYL CITRATE 100 MCG/2 ML VL ONE (07:55)
[2019-07-19] MEDS ORDERED: SODIUM CHL 0.9% 50 ML ONE (07:55)
[2019-07-19] MEDS ORDERED: MIDAZOLAM HCL 1MG/1ML-2 ML VIAL ONE (07:55)
[2019-07-19] MEDS ORDERED: TICAGRELOR 90 MG TAB ONE (08:34)
[2019-07-19] MEDS ORDERED: ASPirin 325 MG TAB ONE (08:34)
[2019-07-19 09:00] VITALS: BP 135/81
[2019-07-19] MEDS: TICAGRELOR 90 MG TAB PO SCH ×2 (09:19→21:36)
[2019-07-19] MEDS: ASPirin 81 mg TAB PO SCH (09:19)
--- NOTE | 2019-07-19 09:40 | NUR ---
Report received from MILI. JACOBABA brought to bed 246B following LEFT Cardiac catheterization, on quality assurance supervisor trim and portable oxygen. Patient transfered to unit bed, connected to support team member 11 and oxygen. Catheterization site assessed for any bleeding, redness or swelling. Pedal pulses on affected leg assessed for positive tissue perfusion. Patient instructed on need to notify staff immediately if any pain, burning or wetness to site, and any lower back pain. Patient educated on new cardiac medications. All questions and concerns addressed, patient verbalized understanding of all education and instruction. See notes for any further. NOTE: PT'S FAMILY AT BEDSIDE. PT ON [place] POSITION FOR MEALS, ASSISTED BY PT'S DAUGHTER. PT IS AWARE THAT HE IS NOT ALLOWED TO SIT UP OR GET OUT OF BED UNTIL 1050 AM. FAMILY AND PT VERBALIZED UNDERSTANDING.
[2019-07-19] MEDS: LEVOFLOXACIN 250 MG TAB PO SCH (10:28)
[2019-07-19] MEDS: FUROSEMIDE 40 MG/4 ML VIAL IV SCH (10:31)
[2019-07-19] MEDS: POTASSIUM CHL 20 Meq TABLET PO SCH (10:33)
[2019-07-19] MEDS ORDERED: LEVOFLOXACIN 250 MG TAB PO SCH (12:15)
[2019-07-19] MEDS: SODIUM CHLORIDE 0.9% 1,000 ML IV SCH (12:15)
[2019-07-19] MEDS: ATORVASTATIN 20 MG TAB PO SCH ×2 (12:15→21:36)
[2019-07-19 13:00] VITALS: BP 144/76
--- NOTE | 2019-07-19 14:00 | NUR ---
Rounds Patient awake and alert. No S/S of distress/SOB or pain. Will continue to monitor changes q1hr and PRN.
[2019-07-19 17:00] VITALS: BP 125/81
--- NOTE | 2019-07-19 17:45 | NUR ---
Rounds Patient awake and alert. No S/S of distress/SOB or pain. Will continue to monitor changes q1hr and PRN.
--- NOTE | 2019-07-19 19:09 | NUR ---
CLOSING REPORT GIVEN TO SHAKIR OLIVER. PT EATING DINNER. NO DISTRESS NOTED. DENIES PAIN OR SOB. FAMILY AT BEDSIDE.
[2019-07-19 22:00] VITALS: BP 115/96
[2019-07-20 05:00] VITALS: BP 145/87
[2019-07-20] MEDS: ALBUTEROL SULF 2.5 MG/0.5ML(0.5%) NEB SOLN NEB SCH ×2 (06:08→11:01)
[2019-07-20] MEDS: IPRATROPIUM BROM 0.5 MG/2.5ML INH SOL NEB SCH ×2 (06:08→11:01)
[2019-07-20 07:35] LABS: BUN/Creatinine Ratio 19.2; Calcium 9.2 mg/dL (8.5-10.1); Potassium 4.6 mmol/L (3.5-5.1)
[2019-07-20 09:00] VITALS: BP 153/85
[2019-07-20] MEDS: ASPirin 81 mg TAB PO SCH (09:26)
[2019-07-20] MEDS: TICAGRELOR 90 MG TAB PO SCH (09:26)
[2019-07-20] MEDS ORDERED: LEVOFLOXACIN 500 MG TAB PO SCH (10:00)
--- NOTE | 2019-07-20 11:50 | NUR ---
PT SEEN BY DR. KITCHEN PER DR. KITCHEN PT CAN GO HOME, O2 SAT ROOM AIR 92-94%.
[2019-07-20] MEDS: SODIUM CHLORIDE 0.9% 1,000 ML IV SCH (12:15)
[2019-07-20 13:00] VITALS: BP 147/83
[2019-07-20 13:10] VITALS: BP 141/85
--- NOTE | 2019-07-20 14:05 | NUR ---
Discharge instructions given as ordered. Encourage to follow up with DR. CAN AND CARDIOLOGY IN 1 WEEK, UNABLE TO MAKE AN APPOINTMENT OFFICE IS CLOSE FOR LUNCH, THE DAUGHTER VERBALIZED SHE WILL MAKE AN APPOINTMENT. All questions and concerns addressed. Patient verbalized understanding. Medication reconciliation form completed and copy given to patient. IV removed with catheter intact, pressure dressing applied. Telemetry unit returned to ICU. Patient taken to vehicle via wheelchair with all personal belongings, accompanied by staff and family member. No distress noted at time of departure.
== END 2019-07-20 14:05 | disposition home or self-care (01) | DRG 710 ==
LOC: ER 12:09 → OVERFLOW 12:10 → WEST WING 17:48 → DOU IN ICU 07-12 15:10 → TELE-EAST 07-14 17:15
PROVIDERS: ADMIT Internal Medicine; ATTEND Internal Medicine
PROC: 027034Z Dilation of Coronary Artery, One Artery with Drug-eluting Intraluminal Device, Percutaneous Approach (ICD-10-PCS; principal; 2019-07-19)
PROC: 4A023N7 Measurement of Cardiac Sampling and Pressure, Left Heart, Percutaneous Approach (ICD-10-PCS; 2019-07-19)
PROC: B2111ZZ Fluoroscopy of Multiple Coronary Arteries using Low Osmolar Contrast (ICD-10-PCS; 2019-07-19)
PROC: B2151ZZ Fluoroscopy of Left Heart using Low Osmolar Contrast (ICD-10-PCS; 2019-07-19)
DX: A41.9 Sepsis, unspecified organism (principal); J96.00 Acute respiratory failure, unspecified whether with hypoxia or hypercapnia; J15.211 Pneumonia due to Methicillin susceptible Staphylococcus aureus; I50.41 Acute combined systolic (congestive) and diastolic (congestive) heart failure; N17.0 Acute kidney failure with tubular necrosis; G92 Toxic encephalopathy; I11.0 Hypertensive heart disease with heart failure; E78.5 Hyperlipidemia, unspecified; I25.10 Atherosclerotic heart disease of native coronary artery without angina pectoris; I70.0 Atherosclerosis of aorta; Z98.41 Cataract extraction status, right eye; Z98.42 Cataract extraction status, left eye; Z79.02 Long term (current) use of antithrombotics/antiplatelets; Z79.899 Other long term (current) drug therapy
CPT/HCPCS: 36415; 71045; 71046; 71260; 80048; 80053; 80202; 81001; 83605; 83735; 83880; 84484; 85025; 85610; 85730; 86850; 86900; 86901; 87040; 87070; 87077; 87186; 87205; 92928; 93005; 93306; 93458; 94640; 94761; 96365; 96366; 96367; 96375; 97116; 97163; 97530; 99152; 99153; C1874; G0378; J0696; J1956; J2250; J2543

== ENCOUNTER 2020-09-04 17:34 | Inpatient (IN) | payer MEDICAID ==
[~2020-09-04] VITALS: Ht 175.3 cm; Wt 77.0 kg
[~2020-09-04 17:34] MED LIST: ASPI-543 PO; ATOR10TA52 PO; LOSA100T22 PO; NAP500T PO; OMEP20TA PO; PAR20T PO; TEMA15CA91 PO
[2020-09-04 20:29] LABS: Basophils # (auto) 0 10 ^3/uL (0-0.2); Basophils % (auto) 0.1 % (0.0-2.0); Eosinophils # (auto) 0 10 ^3/uL (0-0.8); Eosinophils % (auto) 0.1 % (0.0-7.0); Hematocrit 39.7 % (41.0-53.0); Hemoglobin 13.7 g/dL (13.5-17.5); Lymphocytes # (auto) 0.4 10 ^3/uL (0.4-5.4); Lymphocytes % (auto) 4.5 % (10.0-50.0); Mean Corpuscular Hemoglobin 30.3 pg (28.0-32.0); Mean Corpuscular Hgb Conc. 34.5 g/dL (32.0-36.0); Mean Corpuscular Volume 87.9 fL (80.0-100.0); Monocytes # (auto) 0.6 10 ^3/uL (0-1.3); Monocytes % (auto) 6.2 % (0.0-12.0); Neutrophils # (auto) 7.9 10 ^3/uL (1.6-8.6); Neutrophils % (auto) 89.1 % (37.0-80.0); Nucleated Red Blood Cells % 0.1 %; Platelet Count (auto) 222 10^3/uL (140-450); Red Blood Cells 4.51 10^6/uL (4.5-5.90); Red Cell Distribution Width 13.4 % (11.8-14.3); White Blood Cell 8.8 10^3/uL (4.4-10.8)
[2020-09-04 20:45] LABS: INR 0.95 (0.9-1.15); Partial Thromboplastin Time 37.1 sec (23.0-31.2)
[2020-09-04 20:46] LABS: Albumin 2.6 g/dL (3.4-5.0); BUN/Creatinine Ratio 15.6; Calcium 7.6 mg/dL (8.5-10.1); Potassium 3.6 mmol/L (3.5-5.1)
[2020-09-04 20:51] LABS: Bilirubin, Total 0.5 mg/dL (0.2-1.0); Total Protein 6.6 g/dL (6.4-8.2)
[2020-09-04] MEDS ORDERED: SUCCINYLCHOLINE CHLORIDE 20 MG/ML 10ML VIAL IV ONE (20:57)
[2020-09-04] MEDS ORDERED: ETOMIDATE (2MG/ML) 20ML VIAL IV ONE (20:57)
[2020-09-04] MEDS ORDERED: PROPOFOL 100 ML IV ONE (21:07)
[2020-09-04 23:59] LABS: Urine Bacteria FEW /hpf (None Seen); Urine Blood Negative /uL (Negative); Urine Mucus FEW (None Seen); Urine Specific Gravity 1.024 (1.001-1.035); Urine WBC 2 /hpf (0 - 3)
[2020-09-05] MEDS ORDERED: NOREPINEPHRINE 8 MG/250ML KIT 250 ML IV ONE (00:36)
[2020-09-05] MEDS: NOREPINEPHRINE 8 MG/250ML KIT 250 ML IV SCH (00:36)
[2020-09-05] MEDS ORDERED: PROPOFOL 100 ML IV ONE ×2 (01:43→06:12)
[2020-09-05] MEDS ORDERED: ACETAMINOPHEN 325 MG TAB PO PRN (02:45)
[2020-09-05] MEDS ORDERED: NITROGLYCERIN 0.4 MG SL TAB SL PRN (02:45)
[2020-09-05] MEDS ORDERED: ALBUMIN 5% 250 ML IV ONE (02:45)
[2020-09-05] MEDS ORDERED: SODIUM CHLORIDE 0.9% 1,000 ML IV SCH (02:45)
[2020-09-05] MEDS ORDERED: ONDANSETRON HCL 4 MG/2 ML VIAL IV PRN (02:45)
[2020-09-05] MEDS ORDERED: levoFLOXacin 500MG 100 ML IV ONE (02:45)
[2020-09-05] MEDS ORDERED: ALBUTEROL SULF HFA 90MCG INH 200DOSE IN PRN (02:45)
[2020-09-05] MEDS ORDERED: MORPHINE SULF INJ 2 MG/ML SYRINGE 1ML IV PRN (02:45)
[2020-09-05 03:00] VITALS: BP 119/70
[2020-09-05] MEDS ORDERED: AZITHROMYCIN 500MG/ 250ML 250 ML IV SCH (03:00)
[2020-09-05] MEDS ORDERED: REMDESIVIR PER PHARMACY 0 ML IV SCH (03:15)
[2020-09-05] MEDS: DexAMETHasone SOD PHOS 10MG/1ML VIAL INJ IV SCH (03:19)
[2020-09-05 03:45] LABS: Magnesium 2.2 mg/dL (1.6-2.6)
[2020-09-05 03:54] LABS: CRP High Sensitivity 16.3 mg/dL (< 0.3)
[2020-09-05] MEDS ORDERED: SUCCINYLCHOLINE CHLORIDE 20 MG/ML 10ML VIAL IV ONE (04:45)
[2020-09-05] MEDS ORDERED: PROPOFOL 10 MG/ML 20 ML IV ONE ×3 (04:45→06:45)
[2020-09-05] MEDS ORDERED: ETOMIDATE (2MG/ML) 20ML VIAL IV ONE (04:45)
[2020-09-05 06:52] VITALS: BP 141/88
[2020-09-05] MEDS: BUDESONIDE (INHALATION) 180 MCG IH IN SCH ×2 (10:00→20:42)
[2020-09-05] MEDS: ASCORBIC ACID 1,000 MG TAB PO SCH (10:00)
[2020-09-05] MEDS: CHOLECALCIFEROL (VITD3) 2,000 UNIT CAP PO SCH (10:00)
[2020-09-05] MEDS: ZINC SULFATE 220mg CAP or TAB PO SCH (10:00)
[2020-09-05 10:18] VITALS: BP 145/87
[2020-09-05] MEDS: PROPOFOL 100 ML IV SCH ×2 (10:26→18:13)
[2020-09-05] MEDS: ENOXAPARIN SOD 40 MG/0.4 ML SYRINGE SC SCH ×2 (10:30→22:00)
[2020-09-05] MEDS ORDERED: FUROSEMIDE 20 MG/2 ML VIAL IV ONE (11:15)
[2020-09-05] MEDS ORDERED: POTASSIUM EFFERVESENT TAB 25 MEQ GT ONE (11:15)
[2020-09-05 12:14] LABS: Basophils # (auto) 0 10 ^3/uL (0-0.2); Basophils % (auto) 0.3 % (0.0-2.0); Eosinophils # (auto) 0 10 ^3/uL (0-0.8); Hematocrit 37.6 % (41.0-53.0); Hemoglobin 12.8 g/dL (13.5-17.5); Lymphocytes # (auto) 0.3 10 ^3/uL (0.4-5.4); Lymphocytes % (auto) 3.7 % (10.0-50.0); Mean Corpuscular Hemoglobin 29.7 pg (28.0-32.0); Mean Corpuscular Hgb Conc. 34.1 g/dL (32.0-36.0); Mean Corpuscular Volume 87.3 fL (80.0-100.0); Monocytes # (auto) 0.3 10 ^3/uL (0-1.3); Monocytes % (auto) 3.3 % (0.0-12.0); Neutrophils # (auto) 8.8 10 ^3/uL (1.6-8.6); Neutrophils % (auto) 92.7 % (37.0-80.0); Nucleated Red Blood Cells % 0.1 %; Platelet Count (auto) 260 10^3/uL (140-450); Red Blood Cells 4.31 10^6/uL (4.5-5.90); Red Cell Distribution Width 13.3 % (11.8-14.3); White Blood Cell 9.5 10^3/uL (4.4-10.8)
[2020-09-05 12:40] LABS: Albumin 2.4 g/dL (3.4-5.0); BUN/Creatinine Ratio 13.6; Calcium 7.3 mg/dL (8.5-10.1); Potassium 3.8 mmol/L (3.5-5.1)
[2020-09-05 12:42] LABS: Bilirubin, Total 0.6 mg/dL (0.2-1.0); Total Protein 5.9 g/dL (6.4-8.2)
[2020-09-05] MEDS ORDERED: REMDESIVIR 200 MG in NS 210ml LOADING DOSE ADULT IV ONE (15:00)
[2020-09-05] MEDS ORDERED: IOHEXOL 350 MG/ML 100ML IJ ONE ×2 (16:37→19:33)
[2020-09-05 18:30] VITALS: BP 134/77
[2020-09-06 00:04] VITALS: BP 128/77
[2020-09-06 04:09] VITALS: BP 125/74
[2020-09-06] MEDS: PROPOFOL 100 ML IV SCH (04:50)
[2020-09-06] MEDS: NOREPINEPHRINE 8 MG/250ML KIT 250 ML IV SCH (04:51)
[2020-09-06 04:55] LABS: Basophils # (auto) 0 10 ^3/uL (0-0.2); Basophils % (auto) 0.3 % (0.0-2.0); Eosinophils # (auto) 0 10 ^3/uL (0-0.8); Hematocrit 37.4 % (41.0-53.0); Hemoglobin 12.9 g/dL (13.5-17.5); Lymphocytes # (auto) 0.5 10 ^3/uL (0.4-5.4); Lymphocytes % (auto) 3.7 % (10.0-50.0); Mean Corpuscular Hemoglobin 29.9 pg (28.0-32.0); Mean Corpuscular Hgb Conc. 34.4 g/dL (32.0-36.0); Mean Corpuscular Volume 87.1 fL (80.0-100.0); Monocytes # (auto) 0.8 10 ^3/uL (0-1.3); Monocytes % (auto) 6.4 % (0.0-12.0); Neutrophils # (auto) 11.6 10 ^3/uL (1.6-8.6); Neutrophils % (auto) 89.6 % (37.0-80.0); Nucleated Red Blood Cells % 0.1 %; Platelet Count (auto) 313 10^3/uL (140-450); Red Cell Distribution Width 13.3 % (11.8-14.3); White Blood Cell 12.9 10^3/uL (4.4-10.8)
[2020-09-06 05:10] LABS: Potassium 3.9 mmol/L (3.5-5.1)
[2020-09-06 05:24] LABS: Albumin 2.3 g/dL (3.4-5.0); BUN/Creatinine Ratio 17.5; Bilirubin, Total 0.5 mg/dL (0.2-1.0); Calcium 7.6 mg/dL (8.5-10.1)
[2020-09-06 05:40] VITALS: BP 123/73
[2020-09-06] MEDS ORDERED: MIDAZOLAM DRIP 50 mg/50mL 50 ML IV ONE (09:21)
[2020-09-06 09:43] VITALS: BP 120/67
[2020-09-06] MEDS: MIDAZOLAM DRIP 50 mg/50mL 50 ML IV SCH (09:46)
[2020-09-06] MEDS ORDERED: levoFLOXacin 500MG 100 ML IV SCH (10:00)
[2020-09-06] MEDS: BUDESONIDE (INHALATION) 180 MCG IH IN SCH ×2 (10:00→22:00)
[2020-09-06] MEDS ORDERED: PANTOPRAZOLE 40 MG/10 ML VIAL INJ IV ONE (10:45)
[2020-09-06 13:38] VITALS: BP 78/48
[2020-09-06] MEDS: POTASSIUM EFFERVESENT TAB 25 MEQ GT SCH (15:35)
[2020-09-06] MEDS: ZINC SULFATE 220mg CAP or TAB PO SCH (15:35)
[2020-09-06] MEDS: DexAMETHasone SOD PHOS 10MG/1ML VIAL INJ IV SCH (15:35)
[2020-09-06] MEDS: ASCORBIC ACID 1,000 MG TAB PO SCH (15:35)
[2020-09-06] MEDS: FUROSEMIDE 40 MG/4 ML VIAL IV SCH (15:35)
[2020-09-06] MEDS: CHOLECALCIFEROL (VITD3) 2,000 UNIT CAP PO SCH (15:35)
[2020-09-06] MEDS: levoFLOXacin 750MG 150 ML IV SCH (15:36)
[2020-09-06] MEDS: REMDESIVIR 100 MG in SODIUM CHL 0.9% 250 ML IV SCH (18:51)
[2020-09-06] MEDS: PANTOPRAZOLE 40 MG/10 ML VIAL INJ IV SCH (20:51)
[2020-09-06 22:10] VITALS: BP 114/60
[2020-09-07 02:46] VITALS: BP 123/70
[2020-09-07] MEDS: NOREPINEPHRINE 8 MG/250ML KIT 250 ML IV SCH (04:45)
[2020-09-07] MEDS: PROPOFOL 100 ML IV SCH (06:19)
[2020-09-07 06:35] VITALS: BP 92/52
[2020-09-07 08:20] LABS: Potassium 4.3 mmol/L (3.5-5.1)
[2020-09-07 08:32] LABS: Albumin 2.3 g/dL (3.4-5.0); BUN/Creatinine Ratio 27.9; Bilirubin, Total 0.4 mg/dL (0.2-1.0); Calcium 8.4 mg/dL (8.5-10.1); Total Protein 5.8 g/dL (6.4-8.2)
[2020-09-07] MEDS: BUDESONIDE (INHALATION) 180 MCG IH IN SCH (10:00)
[2020-09-07] MEDS: MIDAZOLAM DRIP 50 mg/50mL 50 ML IV SCH (10:10)
[2020-09-07] MEDS ORDERED: ASPirin 81 mg TAB PO ONE (10:30)
[2020-09-07] MEDS: POTASSIUM EFFERVESENT TAB 25 MEQ GT SCH (10:31)
[2020-09-07] MEDS: PANTOPRAZOLE 40 MG/10 ML VIAL INJ IV SCH ×2 (10:32→22:00)
[2020-09-07] MEDS: levoFLOXacin 750MG 150 ML IV SCH (10:32)
[2020-09-07] MEDS: DexAMETHasone SOD PHOS 10MG/1ML VIAL INJ IV SCH (10:32)
[2020-09-07] MEDS: ASCORBIC ACID 1,000 MG TAB PO SCH (10:32)
[2020-09-07] MEDS: CHOLECALCIFEROL (VITD3) 2,000 UNIT CAP PO SCH (10:32)
[2020-09-07] MEDS: ENOXAPARIN SOD 40 MG/0.4 ML SYRINGE SC SCH (10:32)
[2020-09-07] MEDS: FUROSEMIDE 40 MG/4 ML VIAL IV SCH (10:32)
[2020-09-07] MEDS: ZINC SULFATE 220mg CAP or TAB PO SCH (10:32)
[2020-09-07] MEDS: REMDESIVIR 100 MG in SODIUM CHL 0.9% 250 ML IV SCH (17:44)
[2020-09-07 18:20] VITALS: BP 136/84
[2020-09-07] MEDS: BUDESONIDE (INHALATION) 0.5 MG/2 ML NEB NEB SCH (22:17)
[2020-09-07] MEDS: ALBUTEROL SULF 2.5 MG/0.5ML(0.5%) NEB SOLN NEB SCH (22:17)
[2020-09-07 22:20] VITALS: BP 113/66
[2020-09-08] VITALS (73 sets, daily range): BP systolic 79–145; BP diastolic 50–79
[2020-09-08 04:39] LABS: Basophils # (auto) 0 10 ^3/uL (0-0.2); Basophils % (auto) 0.4 % (0.0-2.0); Eosinophils # (auto) 0 10 ^3/uL (0-0.8); Eosinophils % (auto) 0.1 % (0.0-7.0); Hematocrit 35.5 % (41.0-53.0); Hemoglobin 12.4 g/dL (13.5-17.5); Lymphocytes # (auto) 0.5 10 ^3/uL (0.4-5.4); Lymphocytes % (auto) 4.3 % (10.0-50.0); Mean Corpuscular Hemoglobin 31.1 pg (28.0-32.0); Mean Corpuscular Hgb Conc. 34.9 g/dL (32.0-36.0); Monocytes # (auto) 0.9 10 ^3/uL (0-1.3); Neutrophils % (auto) 87.2 % (37.0-80.0); Nucleated Red Blood Cells % 0.1 %; Platelet Count (auto) 308 10^3/uL (140-450); Red Blood Cells 3.98 10^6/uL (4.5-5.90); Red Cell Distribution Width 13.7 % (11.8-14.3); White Blood Cell 11.4 10^3/uL (4.4-10.8)
[2020-09-08] MEDS: NOREPINEPHRINE 8 MG/250ML KIT 250 ML IV SCH (04:45)
[2020-09-08 04:54] LABS: Albumin 2.2 g/dL (3.4-5.0); Calcium 8.5 mg/dL (8.5-10.1); Potassium 4.2 mmol/L (3.5-5.1)
[2020-09-08 04:57] LABS: Bilirubin, Total 0.4 mg/dL (0.2-1.0); Total Protein 5.8 g/dL (6.4-8.2)
[2020-09-08] MEDS: BUDESONIDE (INHALATION) 0.5 MG/2 ML NEB NEB SCH ×2 (06:10→22:05)
[2020-09-08] MEDS: ALBUTEROL SULF 2.5 MG/0.5ML(0.5%) NEB SOLN NEB SCH ×3 (06:10→22:05)
[2020-09-08] MEDS: PROPOFOL 100 ML IV SCH (08:00)
[2020-09-08] MEDS: POTASSIUM EFFERVESENT TAB 25 MEQ GT SCH (09:18)
[2020-09-08] MEDS: DexAMETHasone SOD PHOS 10MG/1ML VIAL INJ IV SCH (09:18)
[2020-09-08] MEDS: FUROSEMIDE 40 MG/4 ML VIAL IV SCH (09:18)
[2020-09-08] MEDS: ASPirin 81 mg TAB PO SCH (09:19)
[2020-09-08] MEDS: ASCORBIC ACID 1,000 MG TAB PO SCH (09:19)
[2020-09-08] MEDS: ZINC SULFATE 220mg CAP or TAB PO SCH (09:19)
[2020-09-08] MEDS: PANTOPRAZOLE 40 MG/10 ML VIAL INJ IV SCH ×2 (09:19→22:13)
[2020-09-08] MEDS: levoFLOXacin 750MG 150 ML IV SCH (09:19)
[2020-09-08] MEDS: CHOLECALCIFEROL (VITD3) 2,000 UNIT CAP PO SCH (09:20)
[2020-09-08] MEDS: ENOXAPARIN SOD 40 MG/0.4 ML SYRINGE SC SCH (09:20)
[2020-09-08] MEDS: MIDAZOLAM DRIP 50 mg/50mL 50 ML IV SCH ×2 (13:00→22:59)
[2020-09-08] MEDS: REMDESIVIR 100 MG in SODIUM CHL 0.9% 250 ML IV SCH (15:07)
[2020-09-08] MEDS: CARVEDILOL 3.125 MG TAB PO SCH (22:00)
[2020-09-09] VITALS (99 sets, daily range): BP systolic 55–198; BP diastolic 49–92
[2020-09-09 04:38] LABS: Basophils # (auto) 0 10 ^3/uL (0-0.2); Basophils % (auto) 0.2 % (0.0-2.0); Eosinophils # (auto) 0 10 ^3/uL (0-0.8); Eosinophils % (auto) 0.4 % (0.0-7.0); Hematocrit 35.7 % (41.0-53.0); Hemoglobin 11.7 g/dL (13.5-17.5); Lymphocytes # (auto) 0.5 10 ^3/uL (0.4-5.4); Lymphocytes % (auto) 5.4 % (10.0-50.0); Mean Corpuscular Hemoglobin 29.1 pg (28.0-32.0); Mean Corpuscular Hgb Conc. 32.7 g/dL (32.0-36.0); Mean Corpuscular Volume 88.9 fL (80.0-100.0); Monocytes # (auto) 0.7 10 ^3/uL (0-1.3); Monocytes % (auto) 7.3 % (0.0-12.0); Neutrophils # (auto) 8.4 10 ^3/uL (1.6-8.6); Neutrophils % (auto) 86.7 % (37.0-80.0); Platelet Count (auto) 340 10^3/uL (140-450); Red Blood Cells 4.02 10^6/uL (4.5-5.90); Red Cell Distribution Width 13.7 % (11.8-14.3); White Blood Cell 9.7 10^3/uL (4.4-10.8)
[2020-09-09] MEDS: NOREPINEPHRINE 8 MG/250ML KIT 250 ML IV SCH (04:45)
[2020-09-09 04:50] LABS: Albumin 2.3 g/dL (3.4-5.0); Calcium 8.3 mg/dL (8.5-10.1); Potassium 4.2 mmol/L (3.5-5.1)
[2020-09-09 04:52] LABS: Bilirubin, Total 0.5 mg/dL (0.2-1.0); Total Protein 5.7 g/dL (6.4-8.2)
[2020-09-09 05:11] LABS: CRP High Sensitivity 2.99 mg/dL (< 0.3)
[2020-09-09] MEDS: PROPOFOL 100 ML IV SCH ×2 (07:45→19:30)
[2020-09-09] MEDS: BUDESONIDE (INHALATION) 0.5 MG/2 ML NEB NEB SCH ×2 (07:46→21:58)
[2020-09-09] MEDS: ALBUTEROL SULF 2.5 MG/0.5ML(0.5%) NEB SOLN NEB SCH ×3 (07:46→21:58)
[2020-09-09] MEDS: ASCORBIC ACID 1,000 MG TAB PO SCH (10:00)
[2020-09-09] MEDS: LISINOPRIL 5 MG TAB PO SCH (10:00)
[2020-09-09] MEDS: POTASSIUM EFFERVESENT TAB 25 MEQ GT SCH (10:00)
[2020-09-09] MEDS: DexAMETHasone SOD PHOS 10MG/1ML VIAL INJ IV SCH (10:00)
[2020-09-09] MEDS: ENOXAPARIN SOD 40 MG/0.4 ML SYRINGE SC SCH (10:00)
[2020-09-09] MEDS: FUROSEMIDE 40 MG/4 ML VIAL IV SCH (10:00)
[2020-09-09] MEDS: ZINC SULFATE 220mg CAP or TAB PO SCH (10:00)
[2020-09-09] MEDS: PANTOPRAZOLE 40 MG/10 ML VIAL INJ IV SCH ×2 (10:00→22:00)
[2020-09-09] MEDS: CARVEDILOL 3.125 MG TAB PO SCH ×2 (10:00→22:00)
[2020-09-09] MEDS: levoFLOXacin 750MG 150 ML IV SCH (10:00)
[2020-09-09] MEDS: ASPirin 81 mg TAB PO SCH (10:00)
[2020-09-09] MEDS: CHOLECALCIFEROL (VITD3) 2,000 UNIT CAP PO SCH (10:00)
[2020-09-09] MEDS: REMDESIVIR 100 MG in SODIUM CHL 0.9% 250 ML IV SCH (17:00)
[2020-09-09] MEDS: MIDAZOLAM DRIP 50 mg/50mL 50 ML IV SCH (19:30)
[2020-09-10] VITALS (84 sets, daily range): BP systolic 76–171; BP diastolic 34–108
[2020-09-10] MEDS: NOREPINEPHRINE 8 MG/250ML KIT 250 ML IV SCH (00:35)
[2020-09-10 04:49] LABS: Basophils # (auto) 0 10 ^3/uL (0-0.2); Basophils % (auto) 0.1 % (0.0-2.0); Eosinophils # (auto) 0 10 ^3/uL (0-0.8); Eosinophils % (auto) 0.5 % (0.0-7.0); Hematocrit 35.1 % (41.0-53.0); Hemoglobin 11.9 g/dL (13.5-17.5); Lymphocytes # (auto) 0.5 10 ^3/uL (0.4-5.4); Lymphocytes % (auto) 4.9 % (10.0-50.0); Mean Corpuscular Hemoglobin 30.5 pg (28.0-32.0); Mean Corpuscular Volume 89.6 fL (80.0-100.0); Monocytes # (auto) 0.8 10 ^3/uL (0-1.3); Monocytes % (auto) 8.4 % (0.0-12.0); Neutrophils # (auto) 8.2 10 ^3/uL (1.6-8.6); Neutrophils % (auto) 86.1 % (37.0-80.0); Platelet Count (auto) 349 10^3/uL (140-450); Red Blood Cells 3.92 10^6/uL (4.5-5.90); Red Cell Distribution Width 13.7 % (11.8-14.3); White Blood Cell 9.5 10^3/uL (4.4-10.8)
[2020-09-10 05:06] LABS: Albumin 2.3 g/dL (3.4-5.0); BUN/Creatinine Ratio 46.8; Calcium 8.3 mg/dL (8.5-10.1); Potassium 4.1 mmol/L (3.5-5.1)
[2020-09-10 05:09] LABS: Bilirubin, Total 0.6 mg/dL (0.2-1.0); Total Protein 5.8 g/dL (6.4-8.2)
[2020-09-10] MEDS: ALBUTEROL SULF 2.5 MG/0.5ML(0.5%) NEB SOLN NEB SCH ×3 (06:00→18:21)
[2020-09-10] MEDS: MIDAZOLAM DRIP 50 mg/50mL 50 ML IV SCH ×2 (08:15→19:45)
[2020-09-10] MEDS: LISINOPRIL 5 MG TAB PO SCH ×2 (09:34→13:30)
[2020-09-10] MEDS: DexAMETHasone SOD PHOS 10MG/1ML VIAL INJ IV SCH (09:35)
[2020-09-10] MEDS: POTASSIUM EFFERVESENT TAB 25 MEQ GT SCH (09:35)
[2020-09-10] MEDS: FUROSEMIDE 40 MG/4 ML VIAL IV SCH (09:35)
[2020-09-10] MEDS: ASPirin 81 mg TAB PO SCH (09:37)
[2020-09-10] MEDS: ZINC SULFATE 220mg CAP or TAB PO SCH (09:37)
[2020-09-10] MEDS: levoFLOXacin 750MG 150 ML IV SCH (09:37)
[2020-09-10] MEDS: ENOXAPARIN SOD 40 MG/0.4 ML SYRINGE SC SCH (09:38)
[2020-09-10] MEDS: PANTOPRAZOLE 40 MG/10 ML VIAL INJ IV SCH ×2 (09:38→22:00)
[2020-09-10] MEDS: CHOLECALCIFEROL (VITD3) 2,000 UNIT CAP PO SCH (09:38)
[2020-09-10] MEDS: ASCORBIC ACID 1,000 MG TAB PO SCH (09:38)
[2020-09-10] MEDS: BUDESONIDE (INHALATION) 0.5 MG/2 ML NEB NEB SCH ×2 (10:00→18:21)
[2020-09-10] MEDS: CARVEDILOL 3.125 MG TAB PO SCH ×2 (10:25→22:00)
[2020-09-10] MEDS: PROPOFOL 100 ML IV SCH ×2 (10:42→17:10)
[2020-09-11] VITALS (87 sets, daily range): BP systolic 83–143; BP diastolic 25–112
[2020-09-11] MEDS: NOREPINEPHRINE 8 MG/250ML KIT 250 ML IV SCH (03:00)
[2020-09-11 04:25] LABS: Red Blood Cells 4.22 10^6/uL (4.5-5.90); White Blood Cell 10.8 10^3/uL (4.4-10.8)
[2020-09-11 04:27] LABS: Hematocrit 37.4 % (41.0-53.0); Hemoglobin 12.9 g/dL (13.5-17.5); Mean Corpuscular Hemoglobin 30.6 pg (28.0-32.0); Mean Corpuscular Hgb Conc. 34.5 g/dL (32.0-36.0); Mean Corpuscular Volume 88.6 fL (80.0-100.0); Platelet Count (auto) 491 10^3/uL (140-450); Red Cell Distribution Width 13.9 % (11.8-14.3)
[2020-09-11 04:40] LABS: Albumin 2.5 g/dL (3.4-5.0); Calcium 9.1 mg/dL (8.5-10.1); Potassium 4.5 mmol/L (3.5-5.1)
[2020-09-11 04:42] LABS: BUN/Creatinine Ratio 33.3
[2020-09-11 04:43] LABS: Band Neutrophils % (manual) 0; Basophils % (manual) 0 (0.0-2.0); Blast Cells 0; Eosinophils % (manual) 0 (0-7); Metamyelocytes % 0; Promyelocytes % 0; Reactive Lymphocytes 0
[2020-09-11 04:45] LABS: Total Protein 6.4 g/dL (6.4-8.2)
[2020-09-11 05:27] LABS: Lymphocytes % (manual) 6 (10.0-50.0); Monocytes % (manual) 4 (0-12); Myelocytes % 1
[2020-09-11] MEDS: ALBUTEROL SULF 2.5 MG/0.5ML(0.5%) NEB SOLN NEB SCH ×3 (06:00→21:38)
[2020-09-11] MEDS: PROPOFOL 100 ML IV SCH ×3 (06:00→18:24)
[2020-09-11] MEDS: MIDAZOLAM DRIP 50 mg/50mL 50 ML IV SCH (06:30)
[2020-09-11] MEDS: DexAMETHasone SOD PHOS 10MG/1ML VIAL INJ IV SCH (09:58)
[2020-09-11] MEDS: POTASSIUM EFFERVESENT TAB 25 MEQ GT SCH (09:58)
[2020-09-11] MEDS: FUROSEMIDE 40 MG/4 ML VIAL IV SCH (09:59)
[2020-09-11] MEDS: ASPirin 81 mg TAB PO SCH (09:59)
[2020-09-11] MEDS: levoFLOXacin 750MG 150 ML IV SCH (09:59)
[2020-09-11] MEDS: BUDESONIDE (INHALATION) 0.5 MG/2 ML NEB NEB SCH ×2 (09:59→21:38)
[2020-09-11] MEDS: PANTOPRAZOLE 40 MG/10 ML VIAL INJ IV SCH ×2 (09:59→22:00)
[2020-09-11] MEDS: ZINC SULFATE 220mg CAP or TAB PO SCH (09:59)
[2020-09-11] MEDS: CARVEDILOL 3.125 MG TAB PO SCH ×2 (10:00→22:00)
[2020-09-11] MEDS: LISINOPRIL 5 MG TAB PO SCH (10:00)
[2020-09-11] MEDS: ASCORBIC ACID 1,000 MG TAB PO SCH (10:02)
[2020-09-11] MEDS: ENOXAPARIN SOD 40 MG/0.4 ML SYRINGE SC SCH (10:02)
[2020-09-11] MEDS: CHOLECALCIFEROL (VITD3) 2,000 UNIT CAP PO SCH (10:02)
[2020-09-11] MEDS ORDERED: Jevity 1.2 Cal/Fiber 1 Liter GT SCH (14:45)
[2020-09-12] VITALS (76 sets, daily range): BP systolic 86–154; BP diastolic 42–91
[2020-09-12] MEDS: NOREPINEPHRINE 8 MG/250ML KIT 250 ML IV SCH (05:00)
[2020-09-12 06:11] LABS: Basophils # (auto) 0.1 10 ^3/uL (0-0.2); Basophils % (auto) 1.1 % (0.0-2.0); Eosinophils # (auto) 0.2 10 ^3/uL (0-0.8); Eosinophils % (auto) 3.5 % (0.0-7.0); Hemoglobin 8.2 g/dL (13.5-17.5); Monocytes # (auto) 0.5 10 ^3/uL (0-1.3); Monocytes % (auto) 9.9 % (0.0-12.0)
[2020-09-12 06:13] LABS: Hematocrit 23.1 % (41.0-53.0); Lymphocytes % (auto) 18.1 % (10.0-50.0); Mean Corpuscular Hemoglobin 31.8 pg (28.0-32.0); Mean Corpuscular Hgb Conc. 35.4 g/dL (32.0-36.0); Mean Corpuscular Volume 89.7 fL (80.0-100.0); Neutrophils # (auto) 3.7 10 ^3/uL (1.6-8.6); Neutrophils % (auto) 67.4 % (37.0-80.0); Nucleated Red Blood Cells % 0.2 %; Platelet Count (auto) 244 10^3/uL (140-450); Red Blood Cells 2.58 10^6/uL (4.5-5.90); White Blood Cell 5.4 10^3/uL (4.4-10.8)
[2020-09-12 06:29] LABS: Albumin 1.6 g/dL (3.4-5.0); Calcium 7.6 mg/dL (8.5-10.1); Potassium 3.7 mmol/L (3.5-5.1)
[2020-09-12 06:34] LABS: Bilirubin, Total 0.4 mg/dL (0.2-1.0); Total Protein 5.1 g/dL (6.4-8.2)
[2020-09-12] MEDS: BUDESONIDE (INHALATION) 0.5 MG/2 ML NEB NEB SCH ×2 (07:11→22:49)
[2020-09-12] MEDS: ALBUTEROL SULF 2.5 MG/0.5ML(0.5%) NEB SOLN NEB SCH ×3 (07:11→22:49)
[2020-09-12] MEDS: CARVEDILOL 3.125 MG TAB PO SCH ×3 (09:15→23:06)
[2020-09-12] MEDS: LISINOPRIL 5 MG TAB PO SCH (09:30)
[2020-09-12] MEDS: FUROSEMIDE 40 MG/4 ML VIAL IV SCH (09:30)
[2020-09-12] MEDS: DexAMETHasone SOD PHOS 10MG/1ML VIAL INJ IV SCH (09:30)
[2020-09-12] MEDS: ASPirin 81 mg TAB PO SCH (09:30)
[2020-09-12] MEDS: ZINC SULFATE 220mg CAP or TAB PO SCH (09:30)
[2020-09-12] MEDS: CHOLECALCIFEROL (VITD3) 2,000 UNIT CAP PO SCH (09:30)
[2020-09-12] MEDS: levoFLOXacin 750MG 150 ML IV SCH ×2 (09:30→12:00)
[2020-09-12] MEDS: ASCORBIC ACID 1,000 MG TAB PO SCH (09:30)
[2020-09-12] MEDS: POTASSIUM EFFERVESENT TAB 25 MEQ GT SCH (09:30)
[2020-09-12] MEDS: MIDAZOLAM DRIP 50 mg/50mL 50 ML IV SCH (09:45)
[2020-09-12] MEDS: ENOXAPARIN SOD 40 MG/0.4 ML SYRINGE SC SCH (10:00)
[2020-09-12] MEDS: ACETYLCYSTEINE 10 %(100MG/ML) SOL 4ML NEB SCH ×2 (15:21→22:49)
[2020-09-13] VITALS (77 sets, daily range): BP systolic 72–164; BP diastolic 7–112
[2020-09-13] MEDS: NOREPINEPHRINE 8 MG/250ML KIT 250 ML IV SCH (04:45)
[2020-09-13 04:58] LABS: Albumin 2.6 g/dL (3.4-5.0); BUN/Creatinine Ratio 35.8; Basophils # (auto) 0 10 ^3/uL (0-0.2); Basophils % (auto) 0.1 % (0.0-2.0); Calcium 9.1 mg/dL (8.5-10.1); Eosinophils # (auto) 0 10 ^3/uL (0-0.8); Eosinophils % (auto) 0.1 % (0.0-7.0); Hematocrit 39.2 % (41.0-53.0); Hemoglobin 13.7 g/dL (13.5-17.5); Lymphocytes # (auto) 0.6 10 ^3/uL (0.4-5.4); Lymphocytes % (auto) 5.7 % (10.0-50.0); Mean Corpuscular Hemoglobin 31.7 pg (28.0-32.0); Mean Corpuscular Hgb Conc. 34.9 g/dL (32.0-36.0); Mean Corpuscular Volume 90.8 fL (80.0-100.0); Monocytes # (auto) 0.9 10 ^3/uL (0-1.3); Monocytes % (auto) 8.6 % (0.0-12.0); Neutrophils # (auto) 8.8 10 ^3/uL (1.6-8.6); Neutrophils % (auto) 85.5 % (37.0-80.0); Nucleated Red Blood Cells % 0.1 %; Platelet Count (auto) 430 10^3/uL (140-450); Potassium 4.4 mmol/L (3.5-5.1); Red Blood Cells 4.31 10^6/uL (4.5-5.90); Red Cell Distribution Width 13.5 % (11.8-14.3); White Blood Cell 10.3 10^3/uL (4.4-10.8)
[2020-09-13 05:01] LABS: Bilirubin, Total 0.8 mg/dL (0.2-1.0); Total Protein 6.7 g/dL (6.4-8.2)
[2020-09-13] MEDS: BUDESONIDE (INHALATION) 0.5 MG/2 ML NEB NEB SCH ×2 (06:14→19:20)
[2020-09-13] MEDS: ALBUTEROL SULF 2.5 MG/0.5ML(0.5%) NEB SOLN NEB SCH ×3 (06:14→19:20)
[2020-09-13] MEDS: ACETYLCYSTEINE 10 %(100MG/ML) SOL 4ML NEB SCH ×3 (06:15→19:20)
[2020-09-13] MEDS: PROPOFOL 100 ML IV SCH (07:45)
[2020-09-13] MEDS: MIDAZOLAM DRIP 50 mg/50mL 50 ML IV SCH (09:45)
[2020-09-13] MEDS: PANTOPRAZOLE 40 MG/10 ML VIAL INJ IV SCH (10:00)
[2020-09-13] MEDS: ASCORBIC ACID 1,000 MG TAB PO SCH (10:00)
[2020-09-13] MEDS: LISINOPRIL 5 MG TAB PO SCH (10:00)
[2020-09-13] MEDS: FUROSEMIDE 40 MG/4 ML VIAL IV SCH (10:12)
[2020-09-13] MEDS: ASPirin 81 mg TAB PO SCH (10:12)
[2020-09-13] MEDS: ZINC SULFATE 220mg CAP or TAB PO SCH (10:12)
[2020-09-13] MEDS: DexAMETHasone SOD PHOS 10MG/1ML VIAL INJ IV SCH (10:12)
[2020-09-13] MEDS: levoFLOXacin 750MG 150 ML IV SCH (10:12)
[2020-09-13] MEDS: POTASSIUM EFFERVESENT TAB 25 MEQ GT SCH (10:12)
[2020-09-13] MEDS: ENOXAPARIN SOD 40 MG/0.4 ML SYRINGE SC SCH (10:13)
[2020-09-13] MEDS: CARVEDILOL 3.125 MG TAB PO SCH ×2 (10:13→20:59)
[2020-09-13] MEDS: CHOLECALCIFEROL (VITD3) 2,000 UNIT CAP PO SCH (10:13)
[2020-09-13] MEDS ORDERED: HALOPERIDOL LACTATE 5 MG/ML INJ VIAL IM ONE (17:15)
[2020-09-13] MEDS: LORazepam 2MG/ML-1ML VIAL IV PRN (22:33)
[2020-09-14] VITALS (23 sets, daily range): BP systolic 97–137; BP diastolic 59–107
[2020-09-14] MEDS: LORazepam 2MG/ML-1ML VIAL IV PRN ×2 (04:30→12:30)
[2020-09-14] MEDS: NOREPINEPHRINE 8 MG/250ML KIT 250 ML IV SCH (04:45)
[2020-09-14 05:12] LABS: Basophils # (auto) 0.1 10 ^3/uL (0-0.2); Basophils % (auto) 0.5 % (0.0-2.0); Eosinophils # (auto) 0 10 ^3/uL (0-0.8); Hematocrit 42.2 % (41.0-53.0); Lymphocytes # (auto) 0.9 10 ^3/uL (0.4-5.4); Lymphocytes % (auto) 5.9 % (10.0-50.0); Mean Corpuscular Hemoglobin 29.7 pg (28.0-32.0); Mean Corpuscular Hgb Conc. 33.3 g/dL (32.0-36.0); Mean Corpuscular Volume 89.3 fL (80.0-100.0); Monocytes # (auto) 1.5 10 ^3/uL (0-1.3); Monocytes % (auto) 10.1 % (0.0-12.0); Neutrophils # (auto) 12.1 10 ^3/uL (1.6-8.6); Neutrophils % (auto) 83.5 % (37.0-80.0); Platelet Count (auto) 400 10^3/uL (140-450); Red Blood Cells 4.72 10^6/uL (4.5-5.90); Red Cell Distribution Width 13.4 % (11.8-14.3); White Blood Cell 14.5 10^3/uL (4.4-10.8)
[2020-09-14 05:33] LABS: Albumin 2.6 g/dL (3.4-5.0); Calcium 9.2 mg/dL (8.5-10.1); Potassium 3.4 mmol/L (3.5-5.1)
[2020-09-14 05:37] LABS: Bilirubin, Total 1.2 mg/dL (0.2-1.0); Total Protein 6.6 g/dL (6.4-8.2)
[2020-09-14] MEDS: PROPOFOL 100 ML IV SCH (06:27)
[2020-09-14] MEDS ORDERED: POTASSIUM CHL 20MEQ/100ML 100 ML IV ONE ×2 (07:00→12:00)
[2020-09-14] MEDS: ALBUTEROL SULF 2.5 MG/0.5ML(0.5%) NEB SOLN NEB SCH ×3 (07:47→19:05)
[2020-09-14] MEDS: BUDESONIDE (INHALATION) 0.5 MG/2 ML NEB NEB SCH ×2 (07:47→19:05)
[2020-09-14] MEDS: ACETYLCYSTEINE 10 %(100MG/ML) SOL 4ML NEB SCH ×3 (07:47→19:05)
[2020-09-14] MEDS: MIDAZOLAM DRIP 50 mg/50mL 50 ML IV SCH (09:45)
[2020-09-14] MEDS: ZINC SULFATE 220mg CAP or TAB PO SCH (10:00)
[2020-09-14] MEDS: ASPirin 81 mg TAB PO SCH (10:00)
[2020-09-14] MEDS: levoFLOXacin 750MG 150 ML IV SCH (10:00)
[2020-09-14] MEDS: DexAMETHasone SOD PHOS 10MG/1ML VIAL INJ IV SCH (10:00)
[2020-09-14] MEDS: CARVEDILOL 3.125 MG TAB PO SCH ×2 (10:00→23:19)
[2020-09-14] MEDS: LISINOPRIL 5 MG TAB PO SCH (10:00)
[2020-09-14] MEDS: ASCORBIC ACID 1,000 MG TAB PO SCH (10:00)
[2020-09-14] MEDS: PANTOPRAZOLE 40 MG/10 ML VIAL INJ IV SCH (10:00)
[2020-09-14] MEDS: CHOLECALCIFEROL (VITD3) 2,000 UNIT CAP PO SCH (10:00)
[2020-09-14] MEDS: ENOXAPARIN SOD 40 MG/0.4 ML SYRINGE SC SCH (10:00)
[2020-09-14] MEDS: FUROSEMIDE 40 MG/4 ML VIAL IV SCH (10:00)
[2020-09-14] MEDS: POTASSIUM EFFERVESENT TAB 25 MEQ GT SCH (10:00)
[2020-09-14] MEDS ORDERED: ENOXAPARIN SOD 100 MG/1 ML SYRINGE SC ONE (12:00)
[2020-09-14] MEDS: ENOXAPARIN SOD 100 MG/1 ML SYRINGE SC SCH (23:19)
[2020-09-15 08:00] VITALS: BP 133/95
[2020-09-15 08:21] LABS: Basophils # (auto) 0 10 ^3/uL (0-0.2); Basophils % (auto) 0.3 % (0.0-2.0); Eosinophils # (auto) 0 10 ^3/uL (0-0.8); Eosinophils % (auto) 0.1 % (0.0-7.0); Hematocrit 40.6 % (41.0-53.0); Hemoglobin 13.8 g/dL (13.5-17.5); Lymphocytes # (auto) 0.7 10 ^3/uL (0.4-5.4); Lymphocytes % (auto) 5.7 % (10.0-50.0); Mean Corpuscular Hemoglobin 30.3 pg (28.0-32.0); Mean Corpuscular Hgb Conc. 33.9 g/dL (32.0-36.0); Mean Corpuscular Volume 89.4 fL (80.0-100.0); Monocytes # (auto) 1.4 10 ^3/uL (0-1.3); Monocytes % (auto) 11.9 % (0.0-12.0); Neutrophils # (auto) 9.9 10 ^3/uL (1.6-8.6); Nucleated Red Blood Cells % 0.1 %; Platelet Count (auto) 391 10^3/uL (140-450); Red Blood Cells 4.54 10^6/uL (4.5-5.90); Red Cell Distribution Width 13.5 % (11.8-14.3); White Blood Cell 12.1 10^3/uL (4.4-10.8)
[2020-09-15] MEDS: ALBUTEROL SULF 2.5 MG/0.5ML(0.5%) NEB SOLN NEB SCH (08:22)
[2020-09-15] MEDS: ACETYLCYSTEINE 10 %(100MG/ML) SOL 4ML NEB SCH (08:22)
[2020-09-15] MEDS: BUDESONIDE (INHALATION) 0.5 MG/2 ML NEB NEB SCH (08:22)
[2020-09-15 08:30] LABS: BUN/Creatinine Ratio 39.2; Calcium 9.8 mg/dL (8.5-10.1); Potassium 3.5 mmol/L (3.5-5.1)
[2020-09-15 08:34] LABS: Bilirubin, Total 1.3 mg/dL (0.2-1.0); Total Protein 6.7 g/dL (6.4-8.2)
[2020-09-15] MEDS: POTASSIUM EFFERVESENT TAB 25 MEQ GT SCH (09:12)
[2020-09-15] MEDS: FUROSEMIDE 40 MG/4 ML VIAL IV SCH (09:12)
[2020-09-15] MEDS: DexAMETHasone SOD PHOS 10MG/1ML VIAL INJ IV SCH (09:12)
[2020-09-15] MEDS: levoFLOXacin 750MG 150 ML IV SCH (09:12)
[2020-09-15] MEDS: ASPirin 81 mg TAB PO SCH (09:13)
[2020-09-15] MEDS: ZINC SULFATE 220mg CAP or TAB PO SCH (09:13)
[2020-09-15] MEDS: CARVEDILOL 3.125 MG TAB PO SCH ×2 (09:13→22:55)
[2020-09-15] MEDS: CHOLECALCIFEROL (VITD3) 2,000 UNIT CAP PO SCH (09:14)
[2020-09-15] MEDS: ENOXAPARIN SOD 100 MG/1 ML SYRINGE SC SCH ×2 (09:14→22:54)
[2020-09-15] MEDS: ASCORBIC ACID 1,000 MG TAB PO SCH (09:14)
[2020-09-15] MEDS: LISINOPRIL 5 MG TAB PO SCH (10:00)
[2020-09-15] MEDS: PANTOPRAZOLE 40 MG/10 ML VIAL INJ IV SCH (10:00)
[2020-09-15] MEDS: ALBUTEROL SULF HFA 90MCG INH 200DOSE IN SCH ×2 (15:00→18:54)
[2020-09-15 16:00] VITALS: BP 115/72
[2020-09-15] MEDS: LORazepam 2MG/ML-1ML VIAL IV PRN (18:25)
[2020-09-15] MEDS: BUDESONIDE (INHALATION) 180 MCG IH IN SCH (18:54)
[2020-09-16] VITALS: BP 127/62
[2020-09-16] MEDS: LORazepam 2MG/ML-1ML VIAL IV PRN ×2 (01:56→10:54)
[2020-09-16] MEDS: BUDESONIDE (INHALATION) 180 MCG IH IN SCH ×2 (06:40→18:51)
[2020-09-16 08:00] VITALS: BP 142/71
[2020-09-16 08:36] LABS: Basophils # (auto) 0.1 10 ^3/uL (0-0.2); Basophils % (auto) 0.6 % (0.0-2.0); Eosinophils # (auto) 0.1 10 ^3/uL (0-0.8); Eosinophils % (auto) 0.5 % (0.0-7.0); Hemoglobin 13.6 g/dL (13.5-17.5); Lymphocytes # (auto) 1.5 10 ^3/uL (0.4-5.4); Lymphocytes % (auto) 12.7 % (10.0-50.0); Mean Corpuscular Hemoglobin 29.3 pg (28.0-32.0); Mean Corpuscular Hgb Conc. 33.2 g/dL (32.0-36.0); Mean Corpuscular Volume 88.3 fL (80.0-100.0); Monocytes # (auto) 1.4 10 ^3/uL (0-1.3); Monocytes % (auto) 11.7 % (0.0-12.0); Neutrophils % (auto) 74.5 % (37.0-80.0); Platelet Count (auto) 379 10^3/uL (140-450); Red Blood Cells 4.65 10^6/uL (4.5-5.90); Red Cell Distribution Width 13.8 % (11.8-14.3); White Blood Cell 12.1 10^3/uL (4.4-10.8)
[2020-09-16 08:49] LABS: Albumin 2.8 g/dL (3.4-5.0); BUN/Creatinine Ratio 43.5; Calcium 9.2 mg/dL (8.5-10.1); Potassium 3.7 mmol/L (3.5-5.1)
[2020-09-16 09:11] LABS: Bilirubin, Total 1.2 mg/dL (0.2-1.0); Total Protein 6.7 g/dL (6.4-8.2)
[2020-09-16] MEDS ORDERED: POTASSIUM CHL 20 Meq TABLET PO SCH (10:00)
[2020-09-16] MEDS: DexAMETHasone SOD PHOS 10MG/1ML VIAL INJ IV SCH (10:35)
[2020-09-16] MEDS: PANTOPRAZOLE 40 MG TAB PO SCH (10:35)
[2020-09-16] MEDS: ZINC SULFATE 220mg CAP or TAB PO SCH (10:36)
[2020-09-16] MEDS: LISINOPRIL 5 MG TAB PO SCH (10:39)
[2020-09-16] MEDS: CARVEDILOL 3.125 MG TAB PO SCH ×2 (10:39→22:00)
[2020-09-16] MEDS: FUROSEMIDE 40 MG/4 ML VIAL IV SCH (10:40)
[2020-09-16] MEDS: ASPirin 81 mg TAB PO SCH (10:40)
[2020-09-16] MEDS: CHOLECALCIFEROL (VITD3) 2,000 UNIT CAP PO SCH (10:40)
[2020-09-16] MEDS: ASCORBIC ACID 1,000 MG TAB PO SCH (10:40)
[2020-09-16] MEDS: ENOXAPARIN SOD 100 MG/1 ML SYRINGE SC SCH ×2 (10:41→22:00)
[2020-09-16] MEDS ORDERED: POTASSIUM EFFERVESENT TAB 25 MEQ GT ONE (10:45)
[2020-09-16] MEDS ORDERED: LACTULOSE 20Gm/30ML SOLN PO ONE (15:15)
[2020-09-16 16:00] VITALS: BP 134/77
[2020-09-16] MEDS: ALBUTEROL SULF HFA 90MCG INH 200DOSE IN PRN (20:22)
[2020-09-17] VITALS: BP 134/77
[2020-09-17 00:11] VITALS: BP 134/77
[2020-09-17] MEDS: ALBUTEROL SULF HFA 90MCG INH 200DOSE IN PRN ×2 (06:29→20:00)
[2020-09-17] MEDS: BUDESONIDE (INHALATION) 180 MCG IH IN SCH ×2 (06:29→20:00)
[2020-09-17 08:00] VITALS: BP 116/51
[2020-09-17] MEDS ORDERED: POTASSIUM EFFERVESENT TAB 25 MEQ GT SCH (10:00)
[2020-09-17] MEDS: ZINC SULFATE 220mg CAP or TAB PO SCH (10:04)
[2020-09-17] MEDS: POTASSIUM EFFERVESENT TAB 25 MEQ PO SCH (10:04)
[2020-09-17] MEDS: DexAMETHasone SOD PHOS 4 MG/1ML SDV INJ IV SCH (10:04)
[2020-09-17] MEDS: LISINOPRIL 5 MG TAB PO SCH (10:05)
[2020-09-17] MEDS: PANTOPRAZOLE 40 MG TAB PO SCH (10:05)
[2020-09-17] MEDS: ASCORBIC ACID 1,000 MG TAB PO SCH (10:05)
[2020-09-17] MEDS: ASPirin 81 mg TAB PO SCH (10:05)
[2020-09-17] MEDS: FUROSEMIDE 40 MG/4 ML VIAL IV SCH (10:05)
[2020-09-17] MEDS: CARVEDILOL 3.125 MG TAB PO SCH ×2 (10:06→22:00)
[2020-09-17] MEDS: CHOLECALCIFEROL (VITD3) 2,000 UNIT CAP PO SCH (10:06)
[2020-09-17] MEDS: ENOXAPARIN SOD 100 MG/1 ML SYRINGE SC SCH (10:06)
[2020-09-17] MEDS ORDERED: ZINC220T6 PO (11:28)
[2020-09-17] MEDS ORDERED: ALBUAER3 IN (11:28)
[2020-09-17] MEDS ORDERED: PANT40T PO (11:28)
[2020-09-17] MEDS ORDERED: CAR3125T PO (11:28)
[2020-09-17] MEDS ORDERED: ASCO500T11 PO (11:28)
[2020-09-17] MEDS ORDERED: METH4PAK PO (11:28)
[2020-09-17] MEDS ORDERED: CHOL1CAP47 PO (11:28)
[2020-09-17] MEDS ORDERED: LACTULOSE 20Gm/30ML SOLN PO ONE (11:30)
[2020-09-17] MEDS ORDERED: HYDROcodone-ACET 5/325MG TAB PO PRN (11:30)
[2020-09-17 16:00] VITALS: BP 109/83
[2020-09-17] MEDS ORDERED: TAMSULOSIN HYDROCHLORIDE 0.4 MG CAP PO ONE (18:45)
[2020-09-17 22:00] VITALS: BP 84/49
[2020-09-17] MEDS: LACTULOSE 20Gm/30ML SOLN PO SCH (22:00)
[2020-09-18 01:20] VITALS: BP 73/40
[2020-09-18] MEDS ORDERED: ALBUMIN 5% 250 ML IV ONE (03:00)
[2020-09-18 05:16] VITALS: BP 92/48
[2020-09-18 07:06] LABS: Basophils # (auto) 0 10 ^3/uL (0-0.2); Basophils % (auto) 0.1 % (0.0-2.0); Eosinophils # (auto) 0.1 10 ^3/uL (0-0.8); Eosinophils % (auto) 0.6 % (0.0-7.0); Hematocrit 35.4 % (41.0-53.0); Lymphocytes # (auto) 1.2 10 ^3/uL (0.4-5.4); Lymphocytes % (auto) 11.8 % (10.0-50.0); Mean Corpuscular Hemoglobin 29.7 pg (28.0-32.0); Mean Corpuscular Hgb Conc. 33.7 g/dL (32.0-36.0); Mean Corpuscular Volume 88.1 fL (80.0-100.0); Monocytes # (auto) 1.1 10 ^3/uL (0-1.3); Monocytes % (auto) 10.6 % (0.0-12.0); Neutrophils % (auto) 76.9 % (37.0-80.0); Nucleated Red Blood Cells % 0.1 %; Platelet Count (auto) 267 10^3/uL (140-450); Red Blood Cells 4.02 10^6/uL (4.5-5.90); Red Cell Distribution Width 13.5 % (11.8-14.3); White Blood Cell 10.4 10^3/uL (4.4-10.8)
[2020-09-18 07:29] LABS: Potassium 3.9 mmol/L (3.5-5.1)
[2020-09-18 08:00] LABS: Calcium 8.6 mg/dL (8.5-10.1)
[2020-09-18] MEDS: ALBUTEROL SULF HFA 90MCG INH 200DOSE IN PRN ×2 (08:06→19:47)
[2020-09-18] MEDS: BUDESONIDE (INHALATION) 180 MCG IH IN SCH ×2 (08:06→19:47)
[2020-09-18 08:50] VITALS: BP 114/54
[2020-09-18] MEDS: LACTULOSE 20Gm/30ML SOLN PO SCH ×2 (10:00→22:27)
[2020-09-18] MEDS: FUROSEMIDE 40 MG/4 ML VIAL IV SCH (10:00)
[2020-09-18] MEDS ORDERED: LOSARTAN POTASSIUM 25 MG TAB PO SCH (10:00)
[2020-09-18] MEDS: DexAMETHasone SOD PHOS 4 MG/1ML SDV INJ IV SCH (10:08)
[2020-09-18] MEDS: ASPirin 81 mg TAB PO SCH (10:09)
[2020-09-18] MEDS: ASCORBIC ACID 1,000 MG TAB PO SCH (10:10)
[2020-09-18] MEDS: ENOXAPARIN SOD 40 MG/0.4 ML SYRINGE SC SCH (10:10)
[2020-09-18] MEDS: CHOLECALCIFEROL (VITD3) 2,000 UNIT CAP PO SCH (10:10)
[2020-09-18] MEDS: PANTOPRAZOLE 40 MG TAB PO SCH (10:10)
[2020-09-18] MEDS: ZINC SULFATE 220mg CAP or TAB PO SCH (10:10)
[2020-09-18] MEDS: POTASSIUM EFFERVESENT TAB 25 MEQ PO SCH (10:11)
[2020-09-18 16:00] VITALS: BP 132/64
[2020-09-18] MEDS: TAMSULOSIN HYDROCHLORIDE 0.4 MG CAP PO SCH (18:50)
[2020-09-18 23:58] VITALS: BP 105/62
[2020-09-19] MEDS: BUDESONIDE (INHALATION) 180 MCG IH IN SCH (07:55)
[2020-09-19] MEDS: ALBUTEROL SULF HFA 90MCG INH 200DOSE IN PRN (07:55)
[2020-09-19 09:00] VITALS: BP 97/57
[2020-09-19] MEDS: ASPirin 81 mg TAB PO SCH (09:29)
[2020-09-19] MEDS: ZINC SULFATE 220mg CAP or TAB PO SCH (09:29)
[2020-09-19] MEDS: LACTULOSE 20Gm/30ML SOLN PO SCH (09:29)
[2020-09-19] MEDS: DexAMETHasone SOD PHOS 4 MG/1ML SDV INJ IV SCH (09:29)
[2020-09-19] MEDS: POTASSIUM EFFERVESENT TAB 25 MEQ PO SCH (09:29)
[2020-09-19] MEDS: PANTOPRAZOLE 40 MG TAB PO SCH (09:29)
[2020-09-19] MEDS: ASCORBIC ACID 1,000 MG TAB PO SCH (09:29)
[2020-09-19] MEDS: ENOXAPARIN SOD 40 MG/0.4 ML SYRINGE SC SCH (09:30)
[2020-09-19] MEDS: CHOLECALCIFEROL (VITD3) 2,000 UNIT CAP PO SCH (09:30)
[2020-09-19] MEDS ORDERED: TAM04C PO (13:15)
[2020-09-19 15:34] VITALS: BP 97/57
[2020-09-19 16:01] VITALS: BP 128/80
[2020-09-19] MEDS: TAMSULOSIN HYDROCHLORIDE 0.4 MG CAP PO SCH (18:00)
== END 2020-09-19 19:45 | disposition home health service (06) | DRG 720 ==
LOC: ER 17:34 → EDBD 17:34 → EDUNIT# 17:34 → OVERFLOW 17:35 → ICU WEST 09-08 06:41 → EAST 09-14 22:30 → TELE-E-ADS 09-14 23:34
PROVIDERS: ADMIT Nurse Practitioner; ATTEND Internal Medicine
PROC: 5A1955Z Respiratory Ventilation, Greater than 96 Consecutive Hours (ICD-10-PCS; principal; 2020-09-04)
PROC: 0BH17EZ Insertion of Endotracheal Airway into Trachea, Via Natural or Artificial Opening (ICD-10-PCS; 2020-09-04)
PROC: 02HV33Z Insertion of Infusion Device into Superior Vena Cava, Percutaneous Approach (ICD-10-PCS; 2020-09-04)
PROC: XW033E5 Introduction of Remdesivir Anti-infective into Peripheral Vein, Percutaneous Approach, New Technology Group 5 (ICD-10-PCS; 2020-09-05)
DX: A41.89 Other specified sepsis (principal); U07.1 COVID-19; J96.01 Acute respiratory failure with hypoxia; E43 Unspecified severe protein-calorie malnutrition; I50.43 Acute on chronic combined systolic (congestive) and diastolic (congestive) heart failure; I21.A1 Myocardial infarction type 2; E78.5 Hyperlipidemia, unspecified; Z95.1 Presence of aortocoronary bypass graft; I16.1 Hypertensive emergency; I27.21 Secondary pulmonary arterial hypertension; N40.1 Benign prostatic hyperplasia with lower urinary tract symptoms; R33.8 Other retention of urine; I11.0 Hypertensive heart disease with heart failure; J12.82 Pneumonia due to coronavirus disease 2019; J98.11 Atelectasis; I73.9 Peripheral vascular disease, unspecified; K59.00 Constipation, unspecified; Z78.1 Physical restraint status; Z95.5 Presence of coronary angioplasty implant and graft; Z68.25 Body mass index [BMI] 25.0-25.9, adult
CPT/HCPCS: 36415; 36600; 71045; 71260; 74176; 74177; 80048; 80053; 81001; 82270; 82728; 82805; 83036; 83605; 83615; 83735; 83880; 84443; 84484; 85007; 85025; 85027; 85379; 85610; 85730; 86141; 86850; 86900; 86901; 87070; 87081; 87205; 87426; 92610; 93005; 93306; 94002; 94003; 94640; 96374; 96375; 97110; 97116; 97163; 97530; 99291; A4565; C9113; G0378; J0330; J1100; J1956; J2250; J2704; J3480; J7060

== ENCOUNTER 2022-01-22 20:49 | Inpatient (IN) | payer MEDICAID ==
[~2022-01-22] VITALS: Ht 175.3 cm; Wt 80.0 kg
[~2022-01-22 20:49] MED LIST changes: +ALBUAER3 IN; +ASCO500T11 PO; +CAR3125T PO; +CHOL1CAP47 PO; -LOSA100T22 PO; +METH4PAK PO; -NAP500T PO; +PANT40T PO; +TAM04C PO; +TEMA15CA2 PO; -TEMA15CA91 PO; +ZINC220T6 PO
[2022-01-22 22:37] LABS: Basophils # (auto) 0 10 ^3/uL (0-0.2); Basophils % (auto) 0.3 % (0.0-2.0); Eosinophils # (auto) 0.2 10 ^3/uL (0-0.8); Eosinophils % (auto) 2.1 % (0.0-7.0); Hematocrit 35.6 % (41.0-53.0); Hemoglobin 12.1 g/dL (13.5-17.5); Lymphocytes # (auto) 1.7 10 ^3/uL (0.4-5.4); Lymphocytes % (auto) 14.6 % (10.0-50.0); Mean Corpuscular Volume 88.1 fL (80.0-100.0); Monocytes # (auto) 1.3 10 ^3/uL (0-1.3); Neutrophils # (auto) 8.4 10 ^3/uL (1.6-8.6); Red Blood Cells 4.04 10^6/uL (4.5-5.90); Red Cell Distribution Width 13.6 % (11.8-14.3); White Blood Cell 11.6 10^3/uL (4.4-10.8)
[2022-01-22 22:57] LABS: Albumin 3.4 g/dL (3.4-5.0); BUN/Creatinine Ratio 17.7; Calcium 8.8 mg/dL (8.5-10.1); Potassium 4.8 mmol/L (3.5-5.1)
[2022-01-22 23:09] LABS: Bilirubin, Total 0.5 mg/dL (0.2-1.0); Total Protein 6.8 g/dL (6.4-8.2)
[2022-01-22] MEDS ORDERED: cefTRIAXone 1GM/50ML D5W 50 ML IV ONE (23:45)
[2022-01-22] MEDS ORDERED: AZITHROMYCIN 500MG/ 250ML 250 ML IV ONE (23:45)
[2022-01-23] VITALS (7 sets, daily range): BP systolic 129–168; BP diastolic 58–80
[2022-01-23] MEDS ORDERED: ONDANSETRON HCL 4 MG/2 ML VIAL IV PRN (01:45)
[2022-01-23] MEDS ORDERED: HYDROcodone-ACET 5/325MG TAB PO PRN (01:45)
[2022-01-23] MEDS ORDERED: ACETAMINOPHEN 325 MG TAB PO PRN (01:45)
[2022-01-23] MEDS ORDERED: DOCUSATE SOD 100 MG CAP PO PRN (01:45)
[2022-01-23] MEDS ORDERED: NITROGLYCERIN 0.4 MG SL TAB SL PRN (03:15)
[2022-01-23] MEDS ORDERED: MORPHINE SULFATE INJ 2 MG/ml SYRG IV PRN (03:15)
[2022-01-23 03:49] LABS: Urine Bacteria NONE SEEN /hpf (None Seen); Urine Blood Negative /uL (Negative); Urine Specific Gravity 1.006 (1.001-1.035); Urine WBC <1 /hpf (0 - 3)
[2022-01-23 04:09] LABS: Basophils # (auto) 0.1 10 ^3/uL (0-0.2); Basophils % (auto) 0.5 % (0.0-2.0); Eosinophils # (auto) 0.2 10 ^3/uL (0-0.8); Eosinophils % (auto) 1.9 % (0.0-7.0); Hemoglobin 12.2 g/dL (13.5-17.5); Lymphocytes # (auto) 1.5 10 ^3/uL (0.4-5.4); Lymphocytes % (auto) 12.2 % (10.0-50.0); Mean Corpuscular Hemoglobin 30.4 pg (28.0-32.0); Mean Corpuscular Hgb Conc. 34.8 g/dL (32.0-36.0); Mean Corpuscular Volume 87.3 fL (80.0-100.0); Monocytes # (auto) 1.3 10 ^3/uL (0-1.3); Neutrophils # (auto) 9.5 10 ^3/uL (1.6-8.6); Neutrophils % (auto) 75.4 % (37.0-80.0); Red Cell Distribution Width 13.4 % (11.8-14.3); White Blood Cell 12.6 10^3/uL (4.4-10.8)
[2022-01-23 04:35] LABS: Albumin 3.2 g/dL (3.4-5.0); BUN/Creatinine Ratio 17.3; Calcium 8.9 mg/dL (8.5-10.1); Potassium 4.3 mmol/L (3.5-5.1)
[2022-01-23 04:39] LABS: Bilirubin, Total 0.6 mg/dL (0.2-1.0)
[2022-01-23] MEDS ORDERED: ALBUTEROL SULF HFA 90MCG INH 200DOSE IN SCH (06:00)
[2022-01-23] MEDS: SODIUM CHLOR 0.9% PF (SALINE LOCK) 10ML VIAL/SYR IV SCH ×3 (06:29→21:48)
[2022-01-23] MEDS: ALBUTEROL SULF 2.5 MG/0.5ML(0.5%) NEB SOLN NEB PRN (08:36)
[2022-01-23] MEDS: guaiFENesin 200 MG/10 ML UD PO PRN ×2 (09:09→17:40)
[2022-01-23] MEDS: ASCORBIC ACID 500 MG TAB PO SCH ×2 (09:10→22:01)
[2022-01-23] MEDS: ZINC SULFATE 220mg CAP or TAB PO SCH (09:10)
[2022-01-23] MEDS: ASPirin 81 mg TAB PO SCH (09:10)
[2022-01-23] MEDS: FAMOTIDINE (10MG/ML) 2ML VL IV SCH (09:10)
[2022-01-23] MEDS: MULTIPLE VITAMIN TAB PO SCH (09:10)
[2022-01-23] MEDS: TAMSULOSIN HYDROCHLORIDE 0.4 MG CAP PO SCH (17:35)
[2022-01-23] MEDS: cefTRIAXone 1GM/50ML D5W 50 ML IV SCH (22:01)
[2022-01-23] MEDS ORDERED: TEMAZEPAM 15 MG CAP PO ONE (22:30)
[2022-01-23] MEDS: AZITHROMYCIN 500MG/ 250ML 250 ML IV SCH (22:46)
[2022-01-24 05:00] VITALS: BP 118/42
[2022-01-24] MEDS: SODIUM CHLOR 0.9% PF (SALINE LOCK) 10ML VIAL/SYR IV SCH ×3 (05:09→21:04)
[2022-01-24 05:50] LABS: Basophils # (auto) 0 10 ^3/uL (0-0.2); Basophils % (auto) 0.2 % (0.0-2.0); Eosinophils # (auto) 0.1 10 ^3/uL (0-0.8); Hematocrit 32.5 % (41.0-53.0); Hemoglobin 11.3 g/dL (13.5-17.5); Lymphocytes # (auto) 1.8 10 ^3/uL (0.4-5.4); Lymphocytes % (auto) 15.4 % (10.0-50.0); Mean Corpuscular Hemoglobin 30.2 pg (28.0-32.0); Mean Corpuscular Hgb Conc. 34.9 g/dL (32.0-36.0); Mean Corpuscular Volume 86.5 fL (80.0-100.0); Monocytes # (auto) 1.6 10 ^3/uL (0-1.3); Monocytes % (auto) 13.6 % (0.0-12.0); Neutrophils # (auto) 8.2 10 ^3/uL (1.6-8.6); Neutrophils % (auto) 69.8 % (37.0-80.0); Nucleated Red Blood Cells % 0.1 %; Red Blood Cells 3.76 10^6/uL (4.5-5.90); White Blood Cell 11.7 10^3/uL (4.4-10.8)
[2022-01-24 05:58] LABS: Albumin 2.9 g/dL (3.4-5.0); Calcium 8.4 mg/dL (8.5-10.1); Potassium 3.8 mmol/L (3.5-5.1)
[2022-01-24 06:01] LABS: BUN/Creatinine Ratio 17.1; Bilirubin, Total 0.8 mg/dL (0.2-1.0); Total Protein 6.9 g/dL (6.4-8.2)
[2022-01-24] MEDS: ALBUTEROL SULF 2.5 MG/0.5ML(0.5%) NEB SOLN NEB PRN (06:33)
[2022-01-24 07:40] VITALS: BP 143/74
[2022-01-24] MEDS: ZINC SULFATE 220mg CAP or TAB PO SCH (09:43)
[2022-01-24] MEDS: MULTIPLE VITAMIN TAB PO SCH (09:43)
[2022-01-24] MEDS: FAMOTIDINE (10MG/ML) 2ML VL IV SCH (09:44)
[2022-01-24] MEDS: ASCORBIC ACID 500 MG TAB PO SCH ×2 (09:44→21:04)
[2022-01-24] MEDS: ASPirin 81 mg TAB PO SCH (09:44)
[2022-01-24 13:00] VITALS: BP 145/70
[2022-01-24 16:20] VITALS: BP 138/72
[2022-01-24] MEDS: TAMSULOSIN HYDROCHLORIDE 0.4 MG CAP PO SCH (17:29)
[2022-01-24] MEDS: cefTRIAXone 1GM/50ML D5W 50 ML IV SCH (21:04)
[2022-01-24 21:43] VITALS: BP 128/71
[2022-01-24] MEDS: AZITHROMYCIN 500MG/ 250ML 250 ML IV SCH (22:26)
[2022-01-25 04:51] VITALS: BP 149/71
[2022-01-25] MEDS: SODIUM CHLOR 0.9% PF (SALINE LOCK) 10ML VIAL/SYR IV SCH (05:58)
[2022-01-25] MEDS: guaiFENesin 200 MG/10 ML UD PO PRN (06:45)
[2022-01-25 08:14] VITALS: BP 128/68
[2022-01-25] MEDS: ASCORBIC ACID 500 MG TAB PO SCH (08:30)
[2022-01-25] MEDS: MULTIPLE VITAMIN TAB PO SCH (08:30)
[2022-01-25] MEDS: ZINC SULFATE 220mg CAP or TAB PO SCH (08:30)
[2022-01-25] MEDS: FAMOTIDINE (10MG/ML) 2ML VL IV SCH (08:31)
[2022-01-25 08:41] VITALS: BP 126/48
[2022-01-25] MEDS ORDERED: PRED20TA2 PO (08:56)
[2022-01-25] MEDS ORDERED: AZIT500T66 PO (08:56)
[2022-01-25] MEDS: ASPirin 81 mg TAB PO SCH (10:43)
[2022-01-25 11:55] VITALS: BP 138/67
== END 2022-01-25 15:17 | disposition home or self-care (01) | DRG 139 ==
LOC: ER 20:49 → OVERFLOW 01-23 03:10 → EAST 01-23 08:17
PROVIDERS: ADMIT Nurse Practitioner Family; ATTEND Family Medicine
DX: J18.9 Pneumonia, unspecified organism (principal); J96.01 Acute respiratory failure with hypoxia; E43 Unspecified severe protein-calorie malnutrition; E78.5 Hyperlipidemia, unspecified; I10 Essential (primary) hypertension; I25.10 Atherosclerotic heart disease of native coronary artery without angina pectoris; I25.2 Old myocardial infarction; N40.0 Benign prostatic hyperplasia without lower urinary tract symptoms; Z20.822 Contact with and (suspected) exposure to COVID-19; Z86.16 Personal history of COVID-19; Z87.01 Personal history of pneumonia (recurrent); Z95.1 Presence of aortocoronary bypass graft; Z98.61 Coronary angioplasty status; Z68.26 Body mass index [BMI] 26.0-26.9, adult
CPT/HCPCS: 36415; 71045; 80053; 81001; 83880; 84484; 85025; 93005; 94640; 96365; 96368; G0378; J0696; J3490

== ENCOUNTER 2022-07-16 18:31 | Emergency (ER) | payer MEDICAID ==
[~2022-07-16] VITALS: Ht 172.7 cm; Wt 76.0 kg
[~2022-07-16 18:31] MED LIST changes: +AZIT500T66 PO; +PRED20TA2 PO
[2022-07-16] MEDS ORDERED: CIPROFLOXACIN HCL 500 MG TAB PO ONE (21:15)
[2022-07-17 02:19] VITALS: BP 123/71
== END 2022-07-17 02:22 | disposition home or self-care (01) ==
LOC: ER 18:31
DX: H60.92 Unspecified otitis externa, left ear (principal); H72.92 Unspecified perforation of tympanic membrane, left ear; I10 Essential (primary) hypertension; E78.5 Hyperlipidemia, unspecified; Z95.1 Presence of aortocoronary bypass graft; Z79.82 Long term (current) use of aspirin; Z79.2 Long term (current) use of antibiotics; Z79.899 Other long term (current) drug therapy

== ENCOUNTER 2024-07-27 13:14 | Inpatient (IN) | payer MEDICAID ==
[~2024-07-27] VITALS: Ht 175.3 cm; Wt 81.2 kg
[~2024-07-27 13:14] MED LIST changes: -CAR3125T PO; +CARV-214 PO; -TAM04C PO; +TAMS-35 PO
--- NOTE | 2024-07-27 13:19 | ED.PDOC ---
SOB-HPI HPI Comments HPI: Poor Historian. 79-year-old male brought in by ambulance from home for acute respiratory distress. Patient was hypoxic at the scene and hypotensive. Patient received by EMS prior to arrival : 500 ml fluid bolus, 1 epi, Atrovent, Med Neb treatment, and placed on 8 L via nc oxygen. Patient states he feels better now. VITALS; on EMS arrival to residence TEMP: HEART RATE; 48 02 SAT; 78% on room air RR; 18 BP; 60/30 vitals after ED arrival Heart rate: 75 BP: 126/57 02 sat: 99% on 8 L 02 PMH: 2xMI, CHF, CVA, bilateral carotid artery stenosis PSH: 2 cardiac stents, SOCIAL HISTORY: denies tobacco use, denies etoh use, denies drug use MEDS; unknown ALLERGIES; nkda REVIEW OF SYSTEMS: CONSTITUTIONAL: Denies acute: fever, diaphoresis, chills, HEAD: Denies acute: headache, photophobia Eyes: Denies acute: Double vision, vision loss, eye pain, eye discharge. EARS: Denies acute: tinnitus, hearing loss, ear discharge, ear pain, THROAT: Denies acute: sore throat, swelling, difficulty swallowing , pain with swallowing, change in voice. NECK: Denies acute: neck pain, neck swelling, stiff neck. HEART: Denies acute : chest pain, palpitations, LUNGS: Denies acute: cough, hemoptysis ABDOMEN: Denies acute: abdominal pain, Nausea, Vomiting, diarrhea, melena , hematemesis, hematochezia SKIN: Denies acute: rash, redness, lesions, itchiness. EXTREMITIES: Denies acute: calf pain, numbness, tingling, weakness, denies pain in extremity. Denies acute: Low back pain. Neuro: Denies acute: focal neurological deficit, motor or sensory focal neurological deficit, tremors, seizure like activity, confusion, change in mental status, loss of bowel or bladder function, cauda equina like symptoms. : Denies acute: dysuria, hematuria, flank pain, increase in urinary frequency. PSYCH: Denies acute: hallucination, suicidal ideation, homicidal ideation. PHYSICAL EXAM: General: Mild acute distress, awake and alert. Head: normocephalic, atraumatic. Neck: supple, trachea is midline, no swelling. Throat: Normal phonation. Eyes:, no erythema, no purulent discharge, no proptosis, no icterus. Heart: regular rate, regular rhythm, no significant murmur appreciated. Lungs: no apparent respiratory distress, Able to speak in full sentences. No wheezing, no rhonchi, no crackles. No stridors Clear to auscultation bilaterally. Abdomen: non tender to palpation, non distended, soft, no guarding, no rebound, + bowel sounds. Neuro: Awake, Alert, oriented to name, self, situation, follows commands GCS=15. Speech is normal. Skin: no petechia, no purpura, no cyanosis, non-pale, not jaundice. Lower extremities: --no - Pitting edema no deformity, no focal swelling, no calf TTP. Makes eye contact. moves all four extremities. Face: no apparent facial droop. Chief Complaint: shortness of breath Time Seen by MD: 13:17 Primary Care Provider: JUAN JOSÉ Carbone notes: Nurses Notes, Table Machine Operator Notes, Allergies Information Source: Patient, Emergency Med Personnel Mode of Arrival: EMS Brought in by: EMS Past Medical History PAST MEDICAL HISTORY: High Lipids, HTN Surgical History: CABG Family History Family History: Reviewed,noncontributory to illness Social History Smoker: Non-Smoker Alcohol: Denies ETOH Use Drugs: Denies Drug Use Lives In: Home Was a procedure done? Was a procedure done?: No Differential Dx Differential Diagnosis: Other (DDx include ACS, unstable angina, anxiety, PE, pneumothroax, neoplasm, cardiac ischemia, COPD, asthma, CHF, pleural effusion, tobacco abuse, pneumonia, hypoxia, hypercapnia, anemia., infection/sepsis., pulmonary edema. Asthma, Cardiac tamponade, infection.) X-Ray, Labs, Meds, VS Vital Signs Date Time Temp Pulse Resp B/P (MAP) Pulse Ox O2 Delivery O2 Flow Rate FiO2 07/27/24 18:33 154/78 07/27/24 18:30 98.7 91 18 154/76 (102) 97 98.7 07/27/24 18:30 90 18 97 Nasal Cannula* 2 28 07/27/24 14:33 18 95 Nasal Cannula* 2 28 07/27/24 13:15 71 07/27/24 13:14 98.7 69 18 120/70 (87) 98 Lab Test 07/27/24 16:56 07/27/24 16:54 07/27/24 14:43 07/27/24 13:45 Range/Units Blood Gas Specimen Type Arterial Blood Gas Sample Site Right brachial Blood Gas Patient Temperature 37.0 Arterial Blood Date Drawn [id number] Arterial Blood pH 7.390 7.350-7.450 Arterial Blood Partial Pressure CO2 35.8 35.0-48.0 mmHg Arterial Blood Partial Pressure O2 72.3 L 83.0-108.0 mmHg Arterial Blood HCO3 21.2 21.0-28.0 mmol/L Arterial Blood Oxygen Saturation 94.0 94.0-98.0 % Arterial Blood Base Excess -3.2 L -2.0-3.0 mmol/L Arterial Blood Oxyhemoglobin 93.0 L 94.0-98.0 % Arterial Blood Carboxyhemoglobin 0.6 0.5-1.5 % Arterial Blood Methemoglobin 0.5 0.0-1.5 % Collin Test N/a Blood Gas Total Hemoglobin 13.20 L 13.5-17.5 g/dL Blood Gas Liter Flow 2.00 Blood Gas Modality Nasal cannula FiO2 % 28.0 Troponin I High Sensitivity 12 11 15 </=54 ng/L White Blood Count 9.5 4.4-10.8 10^3/uL Red Blood Count 4.23 L 4.5-5.90 10^6/uL Hemoglobin 12.6 L 13.5-17.5 g/dL Hematocrit 37.4 L 41.0-53.0 % Mean Corpuscular Volume 88.3 80.0-100.0 fL Mean Corpuscular Hemoglobin 29.9 28.0-32.0 pg Mean Corpuscular Hemoglobin Concent 33.8 32.0-36.0 g/dL Red Cell Distribution Width 14.4 H 11.8-14.3 % Platelet Count 239 140-450 10^3/uL Mean Platelet Volume 9.3 6.9-10.8 fL Neutrophils (%) (Auto) 74.4 37.0-80.0 % Lymphocytes (%) (Auto) 15.7 10.0-50.0 % Monocytes (%) (Auto) 8.7 0.0-12.0 % Eosinophils (%) (Auto) 0.8 0.0-7.0 % Basophils (%) (Auto) 0.4 0.0-2.0 % Neutrophils # (Auto) 7.1 1.6-8.6 10 ^3/uL Lymphocytes # (Auto) 1.5 0.4-5.4 10 ^3/uL Monocytes # (Auto) 0.8 0-1.3 10 ^3/uL Eosinophils # (Auto) 0.1 0-0.8 10 ^3/uL Basophils # (Auto) 0 0-0.2 10 ^3/uL Nucleated Red Blood Cells 0.1 % Sodium Level 143 136-145 mmol/L Potassium Level 4.5 3.5-5.1 mmol/L Chloride Level 110 H 98-107 mmol/L Carbon Dioxide Level 25 20-31 mmol/L Anion Gap 8 5-15 Blood Urea Nitrogen 24 H 9-23 mg/dL Creatinine 1.62 H 0.700-1.30 mg/dL Glomerular Filtration Rate Calc 43 >90 mL/min BUN/Creatinine Ratio 14.8 10.0-20.0 Serum Glucose 116 H 74-106 mg/dL Lactic Acid Level 1.8 0.4-2.0 mmol/L Calcium Level 9.8 8.7-10.4 mg/dL Magnesium Level 2.3 1.6-2.6 mg/dL Total Bilirubin 0.6 0.2-1.0 mg/dL Aspartate Amino Transferase (AST) 17 13-40 U/L Alanine Aminotransferase (ALT) 27 7-40 U/L Alkaline Phosphatase 102 46-116 U/L B-Type Natriuretic Peptide 29.65 0-100 pg/mL Total Protein 6.5 5.7-8.2 g/dL Albumin 4.0 3.2-4.8 g/dL Current Medications Medications (Trade) Dose Ordered Sig/Maria R Route Start Time Stop Time Status Last Admin Albuterol (Ventolin Medneb) 2.5 mg ONCE ONCE NEB 07/27/24 13:45 07/27/24 13:46 DC 07/27/24 14:33 Ipratropium [place] (Atrovent Medneb) 1 mg ONCE ONCE NEB 07/27/24 13:45 07/27/24 13:46 DC 07/27/24 14:33 Methylprednisolone Sodium Succinate (Solu Medrol) 125 mg ONCE ONCE IV 07/27/24 13:45 07/27/24 13:46 DC 07/27/24 18:33 Ceftriaxone Sodium 50 ml @ 100 mls/hr ONCE ONCE IV 07/27/24 14:00 07/27/24 14:29 DC 07/27/24 18:33 Furosemide (Lasix Injection) 40 mg ONCE ONCE IV 07/27/24 14:00 07/27/24 14:12 DC 07/27/24 18:33 [place] [id number] Ph: [phone] DIAGNOSTIC IMAGING Diagnostic Imaging Report : [id number] Signed PATIENT: ABA JAMES ACCT: [id number] UNIT: [id number] : 1945 LOC: ER ROOM / BED: / AGE / SEX: 79 / M ADM STATUS: REG ER SERVICE 132 ORDERING PHYSICIAN: ONEYDA WINCHESTER DO PROCEDURE(s): CXRP - CHEST PORTABLE REASON: sob ORDER NUMBER(s): [id number], ACCESSION NUMBER(s): [id number] EXAM: XY CHEST PORTABLE Indication:sob Technique: Single frontal view of the chest was obtained Comparison: CHEST PORTABLE on DOS: 01/22/22, CXRP on DOS: 01/22/22, CHEST XRAY 1 VIEW on DOS: 09/18/20, CHEST PORTABLE on DOS: 09/12/20, CHEST PORTABLE on DOS: 09/11/20 FINDINGS: Lines and Tubes: None Lungs: Low lung volumes with diffuse interstitial opacities. Pleura: No effusion. No pneumothorax. Cardiomediastinal contours: Unremarkable Bones: No acute osseous abnormality. IMPRESSION: Findings suggestive of pulmonary edema or atypical infection. ATED BY: MARIELA ANDERSON MD DICTATED DATE/TIME: 07/27/24 1351 SIGNED BY: MARIELA ANDERSON MD SIGNED DATE/TIME: 07/27/24 1351 CC: Time of 1ST Reevaluation: 14:18 Reevaluation 1ST: Improved Patient Education/Counseling: Diagnosis, Treatment Family Education/Counseling: No Family Present Comments Patient presented with the above HPI.-acute--respiratory distress---workup was initiated. patient was found with the above mentioned diagnosis. Patient was evaluated immediately upon arrival. Patient was given: Solumedrol, duoNeb, Lasix , Rocephin for suspected pneumonia, patient was placed on supplemental oxygen. Patient ED course and VS have been stabilized. Patient has been reassessed in the ED and remained in a stable condition. Pertinent incidental findings were discussed with the patient and/or family. Patient/family voices understanding and is agreeable with plan. Patient has been observed in the ED adequate length of time to insure improvement/stability. patient was admitted to the medicine team for further evaluation and treatment of their presentation. All the reports of any imaging studies that were ordered by myself were reviewed by myself. Departure 1 Departure Time of Disposition: 13:34 Impression: Primary Impression: Acute respiratory distress Additional Impressions: Hypoxemia Pulmonary edema Pneumonia Disposition: ADMITTED INPATIENT Admit to: Tele Condition: Guarded Discharged With: Self Critical Care Note Critical Care Time?: Yes (45 min-critical care time only) Heart Score Heart Score: Heart Score Response (Comments) Value History Moderate Suspicious 1 EKG Normal 0 Age >65 2 Risk Factors 1 or 2 risk factors 1 Troponin Normal limit 0 Total 4 I personally scribed for ONEYDA WINCHESTER DO ([email or web address]) on 07/27/24 at 13:19. Electronically submitted by Ha Vazquez ([employer]). I personally scribed for ONEYDA WINCHESTER DO ([email or web address]) on 07/27/24 at 14:18. Electronically submitted by Ha Vazquez ([email or web address]). I personally scribed for ONEYDA WINCHESTER DO ([email or web address]) on 07/27/24 at 14:46. Electronically submitted by Ha Vazquez ([email or web address]). I personally scribed for ONEYDA WINCHESTER DO ([email or web address]) on 07/27/24 at 14:47. Electronically submitted by Ha Vazquez ([email or web address]). I personally scribed for ONEYDA WINCHESTER DO ([email or web address]) on 07/27/24 at 15:41. Electronically submitted by Ha Vazquez ([email or web address]). I personally scribed for ONEYDA WINCHESTER DO ([email or web address]) on 07/27/24 at 21:08. Electronically submitted by Ha Vazquez ([employer]). ONEYDA WINCHESTER DO Jul 27, 2024 13:19
--- NOTE | 2024-07-27 13:52 | DVH ---
EXAM: XY CHEST PORTABLE Indication:sob Technique: Single frontal view of the chest was obtained Comparison: CHEST PORTABLE on DOS: 01/22/22, CXRP on DOS: 01/22/22, CHEST XRAY 1 VIEW on DOS: 09/18/20, C HEST PORTABLE on DOS: 09/12/20, CHEST PORTABLE on DOS: 09/11/20 FINDINGS: Lines and Tubes: None Lungs: Low lung volumes with diffuse interstitial opacities. Pleura: No effusion. No pneumothorax. Cardiomediastinal contours: Unremarkable Bones: No acute osseous abnormality. IMPRESSION: Findings suggestive of pulmonary edema or atypical infection.
[2024-07-27 14:00] LABS: Basophils # (auto) 0 10 ^3/uL (0-0.2); Basophils % (auto) 0.4 % (0.0-2.0); Eosinophils # (auto) 0.1 10 ^3/uL (0-0.8); Eosinophils % (auto) 0.8 % (0.0-7.0); Hematocrit 37.4 % (41.0-53.0); Hemoglobin 12.6 g/dL (13.5-17.5); Lymphocytes # (auto) 1.5 10 ^3/uL (0.4-5.4); Lymphocytes % (auto) 15.7 % (10.0-50.0); Mean Corpuscular Hemoglobin 29.9 pg (28.0-32.0); Mean Corpuscular Hgb Conc. 33.8 g/dL (32.0-36.0); Mean Corpuscular Volume 88.3 fL (80.0-100.0); Monocytes # (auto) 0.8 10 ^3/uL (0-1.3); Monocytes % (auto) 8.7 % (0.0-12.0); Neutrophils # (auto) 7.1 10 ^3/uL (1.6-8.6); Neutrophils % (auto) 74.4 % (37.0-80.0); Nucleated Red Blood Cells % 0.1 %; Platelet Count (auto) 239 10^3/uL (140-450); Red Blood Cells 4.23 10^6/uL (4.5-5.90); Red Cell Distribution Width 14.4 % (11.8-14.3); White Blood Cell 9.5 10^3/uL (4.4-10.8)
[2024-07-27 14:16] LABS: Alanine Aminotransferase 27 U/L (7-40); Alkaline Phosphatase 102 U/L (46-116); Anion Gap 8 (5-15); Aspartate Aminotransferase 17 U/L (13-40); BUN/Creatinine Ratio 14.8 (10.0-20.0); Bilirubin, Total 0.6 mg/dL (0.2-1.0); Blood Urea Nitrogen 24 mg/dL (9-23); Calcium 9.8 mg/dL (8.7-10.4); Carbon Dioxide 25 mmol/L (20-31); Chloride 110 mmol/L (98-107); Glucose 116 mg/dL (74-106); Magnesium 2.3 mg/dL (1.6-2.6); Potassium 4.5 mmol/L (3.5-5.1); Sodium 143 mmol/L (136-145); Total Protein 6.5 g/dL (5.7-8.2)
[2024-07-27] MEDS: ALBUTEROL SULF 2.5 MG/0.5ML(0.5%) NEB SOLN NEB ONE (14:33)
[2024-07-27] MEDS: IPRATROPIUM BROM 0.5 MG/2.5ML INH SOL NEB ONE (14:33)
[2024-07-27 17:00] LABS: Base Excess -3.2 mmol/L (-2.0-3.0)
[2024-07-27 18:30] VITALS: PULSE 90; RESP 18; O2SAT 97
[2024-07-27] MEDS: FUROSEMIDE 40 MG/4 ML VIAL IV ONE (18:33)
[2024-07-27] MEDS: methylPREDNISolone SOD SUCC 125 MG/2 ML VL IV ONE (18:33)
[2024-07-27] MEDS: cefTRIAXone 1GM/50ML D5W 50 ML IV ONE (18:33)
[2024-07-27] MEDS ORDERED: IPRATROPIUM BROM 0.5 MG/2.5ML INH SOL NEB PRN (19:00)
[2024-07-27] MEDS ORDERED: DOCUSATE SOD 100 MG CAP PO PRN (19:00)
[2024-07-27] MEDS ORDERED: ONDANSETRON HCL 4 MG/2 ML VIAL IV PRN (19:00)
[2024-07-27] MEDS ORDERED: ALBUTEROL SULF 2.5 MG/0.5ML(0.5%) NEB SOLN NEB PRN (19:00)
[2024-07-27] MEDS ORDERED: MAALOX PLUS or MAALOX 30 ML PO PRN (19:00)
[2024-07-27] MEDS ORDERED: ACETAMINOPHEN 325 MG TAB PO PRN (19:00)
[2024-07-27] MEDS ORDERED: HYDROcodone-ACET 5/325MG TAB PO PRN (19:00)
[2024-07-27 19:32] LABS: COVID19 ANTIGEN SOFIA FIA NEGATIVE (NEGATIVE); Rapid Influenza A Negative (Negative); Rapid Influenza B Negative (Negative)
--- NOTE | 2024-07-27 19:32 | DVHHP2 ---
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 Dyspnea, Edema, Lt Headedness, Other Gastrointestinal: No: Nausea, Vomiting, Abdominal Pain, Diarrhea, Constipation, Melena, Hematochezia, Other Genitourinary: No Dysuria, No Frequency, No Incontinence, No Hematuria, No Retention, No Other Musculoskeletal: No: other, neck pain, shoulder pain, arm pain, back pain, hand pain, leg pain, foot pain Skin: No: Rash, Lesions, Jaundice, Bruising, Other Neurological: Weakness; No: Numbness, Incoordination, Change in speech, Confusion, Seizures, Other Allergies: Coded Allergies: NO KNOWN ALLERGIES (Unverified , 07/11/19) Medications Current Medications Medications Dose Ordered Sig/Maria R Route Start Time Stop Time Status Last Admin Dose Admin Ceftriaxone Sodium 50 ml @ 100 mls/hr DAILY IV 07/28/24 10:00 UNV Albuterol 2.5 mg Q4HWA PRN NEB 07/27/24 19:00 UNV Ipratropium [place] 0.5 mg Q4HWA PRN NEB 07/27/24 19:00 UNV Methylprednisolone Sodium Succinate 40 mg Q8HR IV 07/27/24 22:00 UNV Al Hydrox/Mg Hydrox/Simethicone 30 ml Q6HP PRN PO 07/27/24 19:00 UNV Docusate Sodium 100 mg BIDPRN PRN PO 07/27/24 19:00 UNV Acetaminophen 650 mg Q6HP PRN PO 07/27/24 19:00 UNV Acetaminophen/ Hydrocodone Bitart 1 tab Q4HP PRN PO 07/27/24 19:00 UNV Ondansetron HCl 4 mg Q4HP PRN IV 07/27/24 19:00 UNV Sodium Chloride 1,000 ml @ 75 mls/hr [id number] IV 07/27/24 19:00 UNV Exam Vital Signs Vital Signs Date Time Temp Pulse Resp B/P (MAP) Pulse Ox O2 Delivery O2 Flow Rate FiO2 07/27/24 18:33 154/78 07/27/24 18:30 98.7 91 18 97 98.7 07/27/24 18:30 Nasal Cannula* 2 28 General Appearance: Alert, Cooperative, moderate distress HEENT: Atraumatic, PERRLA Respiratory: Clear to auscultation, Normal air movement Cardiovascular: Regular rate, Normal S1, Normal S2 Abdominal: Normal bowel sounds, Soft Extremities: No clubbing, No cyanosis Skin: No rashes, No breakdown Neuro: Normal gait, Normal speech Psych/Mental Status: Mood NL Labs/Xrays Labs Test 07/27/24 18:50 07/27/24 16:56 07/27/24 16:54 07/27/24 13:45 Range/Units Blood Gas Specimen Type Arterial Blood Gas Sample Site Right brachial Blood Gas Patient Temperature 37.0 Arterial Blood Date Drawn [id number] Arterial Blood pH 7.390 7.350-7.450 Arterial Blood Partial Pressure CO2 35.8 35.0-48.0 mmHg Arterial Blood Partial Pressure O2 72.3 L 83.0-108.0 mmHg Arterial Blood HCO3 21.2 21.0-28.0 mmol/L Arterial Blood Oxygen Saturation 94.0 94.0-98.0 % Arterial Blood Base Excess -3.2 L -2.0-3.0 mmol/L Arterial Blood Oxyhemoglobin 93.0 L 94.0-98.0 % Arterial Blood Carboxyhemoglobin 0.6 0.5-1.5 % Arterial Blood Methemoglobin 0.5 0.0-1.5 % [place]lin Test N/a Blood Gas Total Hemoglobin 13.20 L 13.5-17.5 g/dL Blood Gas Liter Flow 2.00 Blood Gas Modality Nasal cannula FiO2 % 28.0 Troponin I High Sensitivity 12 </=54 ng/L White Blood Count 9.5 4.4-10.8 10^3/uL Red Blood Count 4.23 L 4.5-5.90 10^6/uL Hemoglobin 12.6 L 13.5-17.5 g/dL Hematocrit 37.4 L 41.0-53.0 % Mean Corpuscular Volume 88.3 80.0-100.0 fL Mean Corpuscular Hemoglobin 29.9 28.0-32.0 pg Mean Corpuscular Hemoglobin Concent 33.8 32.0-36.0 g/dL Red Cell Distribution Width 14.4 H 11.8-14.3 % Platelet Count 239 140-450 10^3/uL Mean Platelet Volume 9.3 6.9-10.8 fL Neutrophils (%) (Auto) 74.4 37.0-80.0 % Lymphocytes (%) (Auto) 15.7 10.0-50.0 % Monocytes (%) (Auto) 8.7 0.0-12.0 % Eosinophils (%) (Auto) 0.8 0.0-7.0 % Basophils (%) (Auto) 0.4 0.0-2.0 % Neutrophils # (Auto) 7.1 1.6-8.6 10 ^3/uL Lymphocytes # (Auto) 1.5 0.4-5.4 10 ^3/uL Monocytes # (Auto) 0.8 0-1.3 10 ^3/uL Eosinophils # (Auto) 0.1 0-0.8 10 ^3/uL Basophils # (Auto) 0 0-0.2 10 ^3/uL Nucleated Red Blood Cells 0.1 % Sodium Level 143 136-145 mmol/L Potassium Level 4.5 3.5-5.1 mmol/L Chloride Level 110 H 98-107 mmol/L Carbon Dioxide Level 25 20-31 mmol/L Anion Gap 8 5-15 Blood Urea Nitrogen 24 H 9-23 mg/dL Creatinine 1.62 H 0.700-1.30 mg/dL Glomerular Filtration Rate Calc 43 >90 mL/min BUN/Creatinine Ratio 14.8 10.0-20.0 Serum Glucose 116 H 74-106 mg/dL Lactic Acid Level 1.8 0.4-2.0 mmol/L Calcium Level 9.8 8.7-10.4 mg/dL Magnesium Level 2.3 1.6-2.6 mg/dL Total Bilirubin 0.6 0.2-1.0 mg/dL Aspartate Amino Transferase (AST) 17 13-40 U/L Alanine Aminotransferase (ALT) 27 7-40 U/L Alkaline Phosphatase 102 46-116 U/L B-Type Natriuretic Peptide 29.65 0-100 pg/mL Total Protein 6.5 5.7-8.2 g/dL Albumin 4.0 3.2-4.8 g/dL Assessment/Plan Assessment/Plan Admit to Med/surge Suspected PNA Shortness of Breath Hypoxiea Possible Viral vs Bacterial PNA COVID Flu Serology pending CHF, CVA comorbid conditions IV abx prn breathing treatments IV steroids possible needs for antivirals based on serology reports Plan discussed with: Patient My Orders Orders - TONIA GALINDO MD Procedure Category Date Status Time Ceftriaxone 1gm/50ml PHA 07/28/24 Logged D5w (Rocephin) 10:00 Albuterol Medneb PHA 07/27/24 Logged (Ventolin Medneb) 19:00 Ipratropium Medneb PHA 07/27/24 Logged (Atrovent Medneb) 19:00 Med Neb Initial RT 07/27/24 Logged Treatment 18:48 Methylprednisolone PHA 07/27/24 Logged Sod Succ (Solu Medrol 22:00 Admit ADMIT 07/27/24 Transmitted 18:48 Code Status CODE 07/27/24 Transmitted 18:48 Vital Signs [facility] 07/27/24 In Process 18:48 Review Orders With RUTHANN 07/27/24 In Process Adm. 18:48 Regular Diet DIET 07/28/24 Transmitted Breakfast Alum & Mag PHA 07/27/24 Logged Hydrox-Simethicone 19:00 Docusate Sodium PHA 07/27/24 Logged Capsule (Colace 19:00 Acetaminophen Tablet PHA 07/27/24 Logged (Tylenol Tablet) 19:00 Notify Of Changes RUTHANN 07/27/24 In Process From Base 18:48 Advance Directive RUTHANN 07/27/24 In Process 18:48 Basic Metabolic Panel LAB 07/28/24 Verified 04:00 Complete Blood Count LAB 07/28/24 Verified 04:00 Patient Condition ORDERS 07/27/24 Transmitted 18:48 Allergies RUTHANN 07/27/24 In Process 18:48 Hydrocodone-Acet PHA 07/27/24 Logged 5/325mg Tab ([place] 19:00 Ondansetron Hcl PHA 07/27/24 Logged (Zofran) 19:00 Oxygen By Nasal RT 07/27/24 Transmitted Cannula 18:48 Notify Md Of Changes RUTHANN 07/27/24 In Process From Base 18:48 Sodium Chloride 0.9% PHA 07/27/24 Logged 19:00 Problem List: (1) Shortness of breath (2) Fever (3) Generalized weakness (4) Suspected COVID-19 virus infection (5) Acute respiratory distress (6) Pneumonia Date of Service: Jul 27, 2024 Billing Provider: TONIA GALINDO MD Common Visit Codes: [id number] INP/OBS CARE (HIGH) TONIA GALINDO MD Jul 27, 2024 19:32
[2024-07-27 19:36] VITALS: BP 154/78; PULSE 71; RESP 18; O2SAT 97
[2024-07-27 19:45] LABS: Urine Bacteria None Seen /hpf (None Seen)
[2024-07-27 20:00] VITALS: PULSE 101; RESP 18; O2SAT 97
[2024-07-27] MEDS: SODIUM CHLORIDE 0.9% 1,000 ML IV SCH (20:00)
[2024-07-27 20:07] VITALS: O2SAT 97
[2024-07-27 20:15] LABS: Urine Blood Negative /uL (Negative); Urine Clarity Clear (Clear); Urine Color Light-Yellow (Yellow); Urine Hyaline Cast MOD /lpf (0 - 2); Urine Mucus FEW (None Seen); Urine Protein, UAD Negative (Negative); Urine Specific Gravity 1.016 (1.001-1.035); Urine Urobilinogen Normal (Negative); Urine WBC 1 /hpf (0 - 3)
[2024-07-27 21:40] VITALS: BP 140/84; PULSE 72; RESP 16; TEMP 99.2; O2SAT 96
[2024-07-27] MEDS: methylPREDNISolone SOD SUCC 40 MG/ML VL IV SCH (22:33)
[2024-07-27] MEDS ORDERED: LOSA-534 PO (23:00)
[2024-07-27] MEDS ORDERED: MEMA1TAB3 PO (23:00)
[2024-07-27] MEDS ORDERED: FLUT250M2 INH (23:00)
[2024-07-27] MEDS ORDERED: FURO20TA3 PO (23:00)
[2024-07-27] MEDS ORDERED: TICA90TA PO (23:00)
[2024-07-27 23:01] VITALS: O2SAT 96
[2024-07-28] VITALS (10 sets, daily range): BP systolic 129–151; BP diastolic 59–72; PULSE 93–103; RESP 14–18; TEMP 97.3–98.3; O2SAT 93–100
[2024-07-28 07:41] LABS: Chloride 107 mmol/L (98-107); Potassium 4.6 mmol/L (3.5-5.1); Sodium 140 mmol/L (136-145)
[2024-07-28 07:42] LABS: Anion Gap 13 (5-15); Carbon Dioxide 20 mmol/L (20-31)
[2024-07-28 07:47] LABS: BUN/Creatinine Ratio 17.4 (10.0-20.0); Blood Urea Nitrogen 23 mg/dL (9-23); Glucose 146 mg/dL (74-106)
--- NOTE | 2024-07-28 08:48 | DVH ---
EXAM: XY CHEST XRAY 1 VIEW Indication:Congestion Technique: Single frontal view of the chest was obtained Comparison: XY CHEST PORTABLE on DOS: 07/27/24, CHEST PORTABLE on DOS: 01/22/22, CXRP on DOS: 01/22/22, CHEST XRAY 1 VIEW on DOS: 09/18/20, CHEST PORTABLE on DOS: 09/12/20 FINDINGS: Lines and Tubes: None Lungs: Diffuse interstitial opacities. Pleura: No effusion. No pneumothorax. Cardiomediastinal contours: Unremarkable Bones: No acute osseous abnormality. IMPRESSION: Pulmonary edema, unchanged.
--- NOTE | 2024-07-28 10:21 | DVHPNRES ---
Progress Note Date Seen: Jul 28, 2024 Resident Creating Document: VASQUEZ SAWANT RESIDENT Medical Necessity Reason Pt with a Central, PICC or Fol: No Subjective Review of Systems This is a 79-year-old male patient with PMHx with a history of CAD status post PCI with 2 TI 2018 (1 at [place], 1 at [facility]), history of bilateral pneumonia status post intubation in 2019, congestive heart failure who presented to the ER with a chief complaint of generalized weakness, dizziness, syncope. Patient reports feeling generalized weakness and dizziness for the past 2 months associated with feeling of cold, sweaty. He reports worsening shortness of breath for the past 2 weeks associated with productive cough with white phlegm. Patient experienced similar symptoms 07/27 following which patient experienced loss of consciousness but did not fall or hit his head. Per daughter who witnessed the event, patient did not had any seizure-like activity. Patient did urinate during the syncopal event but did not lose underwent bowel movement or experienced tongue biting. Family reports given 4 tablets of nitroglycerin during the event. Patient was unconscious for the next 30 minutes. On the arrival of EMS, patient received oxygen following which patient become more alert but he was still confused. Patient denies chest pain, fever, chills, nausea, vomiting. Past medical history: See HPI Social history Lives with daughter, quit smoking recently-heavy smoker in the past, denies illicit drug use Home medication: Us aspirin 81 mg, atorvastatin 10 mg, Coreg 3.125 b.i.d., furosemide 20 mg daily, albuterol inhaler Patient seen and examined at bedside. Lungs are clear to auscultation, no lower extremity edema. Sinus tachycardia noticed. Has bilateral barreto tenderness. CT angio ordered. Objective vital signs Vital Sign Date Time Temp Pulse Resp B/P (MAP) Pulse Ox O2 Delivery O2 Flow Rate FiO2 07/28/24 05:00 98.2 98 16 151/70 (97) 98 98.2 07/27/24 23:01 Nasal Cannula* 2 28 Total Intake and Output 07/27/24 07/27/24 07/28/24 15:00 23:00 07:00 Intake Total 200 ml Output Total 100 ml Balance 100 ml medications Current Medications Medications Dose Ordered Sig/Maria R Route Start Time Stop Time Status Last Admin Dose Admin Ceftriaxone Sodium 50 ml @ 100 mls/hr DAILY IV 07/28/24 10:00 Al Hydrox/Mg Hydrox/Simethicone 30 ml Q6HP PRN PO 07/27/24 19:00 Docusate Sodium 100 mg BIDPRN PRN PO 07/27/24 19:00 Acetaminophen 650 mg Q6HP PRN PO 07/27/24 19:00 Acetaminophen/ Hydrocodone Bitart 1 tab Q4HP PRN PO 07/27/24 19:00 Ondansetron HCl 4 mg Q4HP PRN IV 07/27/24 19:00 Ipratropium [place] 0.5 mg Q4HWA NEB 07/28/24 14:00 UNV Levalbuterol HCl 0.625 mg Q6HR NEB 07/28/24 12:00 UNV Examination Elderly male patient lying in bed, in no acute distress General: afebrile, palor, mucosae are moist Cardiovascular: Tachycardia but regular S1 and S2. No murmurs, gallops or rubs. No JVD elevation. No pedal edema Respiratory: Normal B/L air entry on room air. Clear lung sounds on auscultation Abdomen: Soft, nontender, nondistended, normoactive bowel sounds, no rebound tenderness, no organomegaly, no masses Genitourinary: Deferred MSK/skin: Mobilizes 4 limbs. Skin is dry and warm. Bilateral barreto tenderness. Neurological: No motor, no sensitive deficits, normal speech. Pupils are isocoric and reactive. Psych/Mental Status: A/Ox4 laboratory and microbiology Laboratory Tests 07/28/24 06:48 Test 07/28/24 06:48 Range/Units Serum Glucose 146 H 74-106 mg/dL Labs and/or images reviewed: Labs reviewed by me, Image(s) reviewed by me Problem List/Assessment/Plan Problem List/Assessment/Plan Syncope - rule out cardiogenic causes Patient experienced unconsciousness greater than [address] unremarkable Carotid Doppler showed right-sided nonocclusive thrombus. Left carotid is unremarkable Echocardiogram pending EKG reviewed, shows sinus tachycardia Telemetry reviewed, shows sinus tachycardia Community-acquired pneumonia, Gram-positive and Gram-negative Started ceftriaxone and doxycycline 07/28 Nebulized levalbuterol and ipratropium q.6 hours scheduled COVID and influenza testing negative Chest x-ray reviewed, shows bilateral diffuse opacities versus venous congestion CT angio completed, shows Patchy bilateral airspace disease with superimposed ground-glass opacities. Bilateral hilar consolidation/ lymphadenopathy. Findings could be infectious / inflammatory or neoplastic. Ruled out PE CT angio completed, shows no large central PE. Attenuation of some segmental branches likely due to mass effect from lymphadenopathy/consolidation. IV NS 250 cc before and after CT angio Ruled out DVT Lower extremity Doppler unremarkable ANGEL likely VMN Creatinine 1.39, down trending CAD status post PCI 2019 with 2 TI Continue aspirin 81 mg daily and atorvastatin 40 mg daily NSns Hypertension Hydralazine 10 mg IV q.6 p.r.n. for SBP greater than 150 mmHg Vitamin-D deficiency Supplemental Diet Soft diet DVT prophylaxis; Lovenox 40 mg sc daily Physical therapy Eval pending Case discussed with patient and daughter son at bedside, all questions have been answered Goals of care discussed with the patient and family for more than 22 minute, full code status Plan discussed with Dr. Reynolds. Plan discussed with: Patient, Daughter (At the bedside) My Orders My Orders Orders - VASQUEZ SAWANT Procedure Category Date Status Time PTPTT LAB 07/28/24 Logged 07:00 Ipratropium Medneb PHA 07/28/24 Logged (Atrovent Medneb) 14:00 Carotid Duplx W Color US 07/28/24 Logged DOP 09:57 Echo 2d Mode Cardiac US 07/28/24 Logged DOP 09:57 Respiratory Culture CUONG 07/28/24 Logged W/ Gs 09:57 Sputum Induction RT 07/28/24 Logged 09:57 Levalbuterol Hcl PHA 07/28/24 Logged (Xopenex Medneb) 12:00 Soft Diet DIET 07/28/24 Transmitted Lunch Computer Systems Engineer ORDERS 07/28/24 Transmitted 10:19 Transfer Orders XFER 07/28/24 Transmitted 10:19 Electrocardigram EKG 07/28/24 Logged 10:19 Pt Request For Service PT 07/28/24 Transmitted 10:[address] 07/28/24 Transmitted 10:20 Date of Service: Jul 28, 2024 Billing Provider: WHIT HAM MD Common Visit Codes: [id number] INP/OBS CARE(HIGH) VASQUEZ SAWANT Jul 28, 2024 10:21 WHIT HAM MD Jul 29, 2024 20:00
--- NOTE | 2024-07-28 10:33 | ECG ---
[facility] Test Date: 2024-07-27 Test Time: 13:15:53 Pat Name: ABA JAMES Department: ER Room: 0272T Gender: M Ell Tutor: IC : 1945 Requested By: ONEYDA WINCHESTER Order Number: [id number] Reading MD: Geovanni Ignacio Measurements Intervals [place] Rate: 71 P: 50 WA: 60 QRS: -23 QRSD: 115 T: 157 QT: 439 QTc: 478 Interpretive Statements Sinus rhythm Short WA interval Nonspecific intraventricular conduction delay Anterior infarct, old Abnormal T, consider ischemia, lateral leads Electronically Signed On 08-03-2024 13:15:12 PST by Geovanni Ignacio Please click the below link to view image of tracing.
[2024-07-28] MEDS: FUROSEMIDE 40 MG/4 ML VIAL IV ONE (11:16)
--- NOTE | 2024-07-28 11:48 | DVH ---
EXAM: CT STROKE CTH HISTORY: CVA. COMPARISON: None TECHNIQUE: Axial images of the head were obtained and reformatted in coronal and sagittal planes. All CT scans at this medical facility are performed using dose modulation techniques as appropriate t o a performed exam including the following: Automated exposure control was utilized; adjustment of th e MA and/or KV according to patient size; and use of iterative reconstruction technique. CT Dose: CTDI volume is 53.93 mGy. Dose-length product is 864.65 mGy*cm FINDINGS: There is no evidence of acute intracranial hemorrhage, mass, mass effect midline shift. There is no h ydrocephalus or extra-axial fluid collection. There are chronic microvascular white matter ischemic c hanges. Moran-white matter differentiation is maintained.. The visualized paranasal sinuses and mastoid air cells are clear. The calvarium is intact. IMPRESSION: 1. No acute intracranial process. HS:Y
[2024-07-28] MEDS: cefTRIAXone 1GM/50ML D5W 50 ML IV SCH (12:09)
[2024-07-28] MEDS: ERGOCALCIFEROL 50,000 UNIT(1.25MG) CAP PO SCH (12:10)
--- NOTE | 2024-07-28 12:24 | DVH ---
Bilateral lower extremity venous duplex Clinical History: dvt Comparison: None Technique: Duplex Doppler evaluation of the deep venous systems of both lower extremities from the common femora l veins to the popliteal veins including color Doppler and spectral/pulsed waveform analysis was perf ormed. Findings: RIGHT SIDE: The common femoral vein demonstrates appropriate compressibility and waveform variability . There is compressibility/patency of the great saphenous vein at the proximal thigh . The femoral vein demonstrates appropriate compressibility and waveform variability . The deep femoral vein demonstrates appropriate compressibility and waveform variability . The popliteal vein demonstrates appropriate compressibility and waveform variability . There is color flow at the tibioperoneal trunk and in the posterior tibial vein. LEFT SIDE: The common femoral vein demonstrates appropriate compressibility and waveform variability . There is compressibility/patency of the great saphenous vein at the proximal thigh . The femoral vein demonstrates appropriate compressibility and waveform variability . The deep femoral vein demonstrates appropriate compressibility and waveform variability . The popliteal vein demonstrates appropriate compressibility and waveform variability . There is color flow at the tibioperoneal trunk and in the posterior tibial vein. Impression: 1. No right or left femoropopliteal venous thrombosis.
--- NOTE | 2024-07-28 12:25 | DVH ---
CAROTID ARTERIAL DOPPLER CLINICAL HISTORY: syncope TECHNIQUE: Doppler study of bilateral carotid/vertebral arteries were performed. Comparison: None FINDINGS: There is nonocclusive atheromatous soft plaque in the distal right common carotid artery. The bilater al common carotid, external and internal carotid arteries appear patent without hemodynamically signi ficant stenosis. There is no significant flow limiting plaque formation identified.The spectral wave forms and peak systolic velocities are within normal limits. Antegrade flow is present within the vertebral arteries with appropriate velocities and waveforms. Right ICA/CCA PSV ratio = 0.8. Left ICA/CCA PSV ratio = 1.6 . IMPRESSION: 1. No hemodynamically significant stenosis within the carotid arteries. 2. There is nonocclusive atheromatous soft plaque in the distal right common carotid artery. HS:Y
[2024-07-28] MEDS: LEVALBUTEROL HCL 1.25 MG/3 ML NEB NEB SCH (12:46)
[2024-07-28] MEDS: IPRATROPIUM BROM 0.5 MG/2.5ML INH SOL NEB SCH (12:47)
[2024-07-28 13:01] LABS: Hematocrit 39.3 % (41.0-53.0); Hemoglobin 13.2 g/dL (13.5-17.5); Mean Corpuscular Hemoglobin 29.6 pg (28.0-32.0); Mean Corpuscular Hgb Conc. 33.5 g/dL (32.0-36.0); Mean Corpuscular Volume 88.3 fL (80.0-100.0); Platelet Count (auto) 237 10^3/uL (140-450); Red Blood Cells 4.45 10^6/uL (4.5-5.90); Red Cell Distribution Width 14.1 % (11.8-14.3); White Blood Cell 19.6 10^3/uL (4.4-10.8)
[2024-07-28 13:11] LABS: Basophils % (manual) 0 (0.0-2.0); Blast Cells 0; Eosinophils % (manual) 0 (0-7); Metamyelocytes % 0; Myelocytes % 0; Promyelocytes % 0; Reactive Lymphocytes 0
[2024-07-28 13:15] LABS: INR 1.06 (0.9-1.15); Partial Thromboplastin Time 27.5 SEC (24.5-34.5); Prothrombin Time 11.2 sec (9.3-11.8)
[2024-07-28 13:54] LABS: Band Neutrophils % (manual) 4; Lymphocytes % (manual) 4 (10.0-50.0); Monocytes % (manual) 2 (0-12); Platelet Estimate Adequate; Tear Drop Cells FEW
[2024-07-28] MEDS ORDERED: IPRATROPIUM BROM 0.5 MG/2.5ML INH SOL NEB SCH (14:00)
[2024-07-28] MEDS: DOXYCYCLINE 100MG/250ML 250 ML IV ONE (14:37)
--- NOTE | 2024-07-28 16:48 | DVH ---
CTA Chest with intravenous contrast INDICATION: r/p pe COMPARISON: None TECHNIQUE: Multidetector spiral CTA of the chest was performed of the chest with intravenous contrast . PULMONARY ANGIOGRAPHY PROTOCOL was utilized using a bolus-tracking technique centered on the main p ulmonary artery. Axial, coronal and sagittal multiplanar and MIP reformats were performed. CONTRAST: Type of contrast: Omni 350 Contrast injected: 100 ml Radiation dose : Chest: CTDI volume is 82 mGy. Dose-length product is 970 mGy*cm The dose indicators for CT are the volume computed Tomography (CT) dose Index (CTDIvol) and the dose Length product (DLP), and are measured in units of mGy and mGy-cm, respectively. These indicators are not patient dose, but values generated from the CT scanner acquisition factors. The report includes radiation exposure data for exposures received during this examination. Findings: Pulmonary artery: No large central or large segmental pulmonary embolism. Attenuation of some segmental branches likely due to mass effect. Lower neck: Normal thyroid. Lungs: Patchy nodular airspace disease and superimposed ground-glass opacities in both lungs. Heart/Vascular Structures: Normal heart size. No pericardial effusion. Lymph Nodes: There is mediastinal and bilateral hilar lymphadenopathy/consolidation. Pleura: No pleural effusion or significant pneumothorax. Musculoskeletal: No acute osseous abnormality. Soft tissues: Normal. Upper abdomen: Limited portions of the upper abdomen are unremarkable. IMPRESSION: 1. No large central pulmonary embolism. Attenuation of some segmental branches likely due to mass ef fect from lymphadenopathy/consolidation. 2. Patchy bilateral airspace disease with superimposed ground-glass opacities. Bilateral hilar consol idation/ lymphadenopathy. Findings could be infectious / inflammatory or neoplastic. Clinical correl ation and continued follow-up is recommended. If indicated, cT-guided biopsy or bronchoscopy with bio psy could be performed. HS:Y
--- NOTE | 2024-07-28 17:55 | DVHSR ---
APPROVED REPORT EXAM: Two-dimensional and M-mode echocardiogram with Doppler and color Doppler. Blood Pressure: 151/70 mmHg INDICATION Congestive Heart Failure RISK FACTORS Height: 69, Weight: 178 DIMENSIONS LVDd3.6 (3.8-5.7cm)LA (2D)3.7 (1.9-4.0cm)Aortic Root3.5 (2.0-3.7cm) LVDs2.3 (2.5-4.0cm)LA (MM) (1.9-4.0cm)Aortic Cusp Exc1.9 (1.5-2.0cm) EF (%) 66.0 (55-70%)Rt. Atrium3.6 (1.9-4.0cm)Asc. Aorta3.2 cm IVSd1.0 (0.7-1.1cm)RV (D) (1.8-2.4cm) PWd1.2 (0.7-1.1cm) Mitral Valve MitralMitral Stenosis E wave0.76m/sMV Mean GR.mmHg A wave0.97m/sMV Peak GR.mmHg E/A ratio0.82D MVAcm2 DECEL [id number] 1/2 [place] Aortic Valve Aortic ValveAortic Stenosis V11.02m/Teressa Mean GR.3mmHg V21.16m/Teressa Peak GR.5mmHg LVOT Diameter2.4 (1.8-2.4cm)Doppler AVA3.98cm2 Pulmonic Valve V21.13m/s Tricuspid Valve [id number] Other Information Technically limited study due to patient position. Conclusion lvef 65% by visual estimate moderate LVH wilma l rv function left atrium enlarged no severe valve abnormalities noted
[2024-07-28] MEDS: SODIUM CHLORIDE 0.9% 250 ML IV ONE (18:14)
[2024-07-28 18:28] LABS: Chloride 103 mmol/L (98-107); Sodium 138 mmol/L (136-145)
[2024-07-28 18:29] LABS: Anion Gap 9 (5-15); Carbon Dioxide 26 mmol/L (20-31)
[2024-07-28 18:30] LABS: Calcium 9.8 mg/dL (8.7-10.4)
[2024-07-28 18:34] LABS: BUN/Creatinine Ratio 19.4 (10.0-20.0); Blood Urea Nitrogen 25 mg/dL (9-23); Glucose 143 mg/dL (74-106)
[2024-07-28] MEDS: DOXYCYCLINE 100 MG TAB/CAP PO SCH (21:39)
[2024-07-29] VITALS (18 sets, daily range): BP systolic 116–153; BP diastolic 61–77; PULSE 87–107; RESP 16–20; TEMP 97.8–98.9; O2SAT 92–100
[2024-07-29] MEDS: SODIUM CHLORIDE 0.9% 250 ML IV ONE (07:11)
[2024-07-29] MEDS: IOHEXOL 350 MG/ML 100ML IJ ONE (07:11)
[2024-07-29 07:28] LABS: Basophils # (auto) 0 10 ^3/uL (0-0.2); Basophils % (auto) 0.2 % (0.0-2.0); Eosinophils # (auto) 0 10 ^3/uL (0-0.8); Hematocrit 41.7 % (41.0-53.0); Hemoglobin 13.9 g/dL (13.5-17.5); Lymphocytes # (auto) 1.3 10 ^3/uL (0.4-5.4); Lymphocytes % (auto) 6.5 % (10.0-50.0); Mean Corpuscular Hemoglobin 29.7 pg (28.0-32.0); Mean Corpuscular Hgb Conc. 33.4 g/dL (32.0-36.0); Mean Corpuscular Volume 88.9 fL (80.0-100.0); Monocytes # (auto) 1.7 10 ^3/uL (0-1.3); Monocytes % (auto) 8.5 % (0.0-12.0); Neutrophils # (auto) 17.1 10 ^3/uL (1.6-8.6); Neutrophils % (auto) 84.8 % (37.0-80.0); Platelet Count (auto) 244 10^3/uL (140-450); Red Blood Cells 4.69 10^6/uL (4.5-5.90); Red Cell Distribution Width 14.6 % (11.8-14.3); White Blood Cell 20.2 10^3/uL (4.4-10.8)
[2024-07-29 07:37] LABS: Anion Gap 11 (5-15); Carbon Dioxide 25 mmol/L (20-31); Chloride 106 mmol/L (98-107); Potassium 4.2 mmol/L (3.5-5.1); Sodium 142 mmol/L (136-145)
[2024-07-29 07:38] LABS: Calcium 9.9 mg/dL (8.7-10.4)
[2024-07-29 07:43] LABS: BUN/Creatinine Ratio 20.6 (10.0-20.0); Blood Urea Nitrogen 27 mg/dL (9-23); Glucose 104 mg/dL (74-106)
[2024-07-29] MEDS: ENOXAPARIN SOD 40 MG/0.4 ML SYRINGE SC SCH (09:39)
[2024-07-29] MEDS: ASPirin-EC 81 mg tab PO SCH (09:39)
[2024-07-29] MEDS: MEMANTINE HCL 5 MG TAB PO SCH (09:39)
[2024-07-29] MEDS: FUROSEMIDE 20 MG/2 ML VIAL IV ONE (12:34)
--- NOTE | 2024-07-29 16:15 | DVHPNRES ---
Progress Note Date Seen: Jul 29, 2024 Resident Creating Document: FOZIA MELARA RESIDENT Medical Necessity Reason Pt with a Central, PICC or Fol: No Subjective Review of Systems Patient seen and examined at bedside. Patient is currently on 2 L oxygen through nasal cannula. We will titrate down to 1 L, later to room air if patient tolerates. Family at bedside explained about the condition of the patient. ROS Constitutional: No: Fever, Chills, Sweats, Weakness, Malaise, Other Eyes: No: Pain, Vision change, Conjunctivae inflammation, Eyelid inflammation, Other, Redness ENT: No: Ear pain, Ear discharge, Nose pain, Nose discharge, Nose congestion, Mouth pain, Mouth swelling, Throat pain, Throat swelling, Other Respiratory: No: Cough, Dry, Shortness of breath, SOB with excertion, Wheezing, Hemoptysis, Pleuritic Pain, Sputum, Wheezing, Other Cardiovascular: No: Chest Pain, Palpitations, Orthopnea, Paroxysmal Noc. Dyspnea, Edema, Lt Headedness, Other Gastrointestinal: No: Nausea, Vomiting, Abdominal Pain, Diarrhea, Constipation, Melena, Hematochezia, Other Musculoskeletal: No: other, neck pain, shoulder pain, arm pain, back pain, hand pain, leg pain, foot pain Neurological:; No: Weakness, Numbness, Incoordination, Change in speech, Confusion, Seizures Review of Systems: HEENT:Normal, CVS:Normal, RESPIRATORY:Normal Objective vital signs Vital Sign Date Time Temp Pulse Resp B/P (MAP) Pulse Ox O2 Delivery O2 Flow Rate FiO2 07/29/24 13:30 88 16 100 07/29/24 13:00 98.4 116/61 (79) 98.4 07/29/24 10:04 Nasal Cannula* 1 24 Total Intake and Output 07/28/24 07/28/24 07/29/24 15:00 23:00 07:00 Intake Total 50 ml 1140 ml 650 ml Output Total 2400 ml 475 ml Balance 50 ml -1260 ml 175 ml medications Current Medications Medications Dose Ordered Sig/Maria R Route Start Time Stop Time Status Last Admin Dose Admin Ceftriaxone Sodium 50 ml @ 100 mls/hr DAILY IV 07/28/24 10:00 07/29/24 09:39 100 MLS/HR Al Hydrox/Mg Hydrox/Simethicone 30 ml Q6HP PRN PO 07/27/24 19:00 Docusate Sodium 100 mg BIDPRN PRN PO 07/27/24 19:00 Acetaminophen 650 mg Q6HP PRN PO 07/27/24 19:00 Acetaminophen/ Hydrocodone Bitart 1 tab Q4HP PRN PO 07/27/24 19:00 Ondansetron HCl 4 mg Q4HP PRN IV 07/27/24 19:00 Levalbuterol HCl 0.625 mg Q6HR NEB 07/28/24 12:00 07/29/24 13:29 0.625 MG Aspirin 81 mg DAILY PO 07/29/24 10:00 07/29/24 09:39 81 MG Memantine 5 mg DAILY PO 07/29/24 10:00 07/29/24 09:39 5 MG Doxycycline Monohydrate 100 mg Q12HR PO 07/28/24 22:00 07/29/24 09:39 100 MG Ergocalciferol 50,000 unit Q7D PO 07/28/24 11:30 07/28/24 12:10 50,000 UNIT Ipratropium [place] 0.5 mg Q6HR NEB 07/28/24 12:00 07/29/24 13:29 0.5 MG Enoxaparin Sodium 40 mg DAILY SC 07/29/24 10:00 07/29/24 09:39 40 MG Furosemide 20 mg BIDD IV 07/29/24 18:00 Examination Examination General Appearance: Alert, Oriented X3, Cooperative, No acute distress HEENT: EOMI Respiratory: Clear to auscultation, Normal air movement Cardiovascular: Regular rate, Normal S1, Normal S2 Abdominal: Normal bowel sounds Extremities: No cyanosis, No edema, Normal pulses, No tenderness/swelling Skin: No rashes, No breakdown Neuro: Normal speech and tone Examination: GENERAL:Normal, HEENT:Normal laboratory and microbiology Laboratory Tests 07/29/24 06:50 Test 07/29/24 06:50 Range/Units Serum Glucose 104 74-106 mg/dL Microbiology Date/Time Source Procedure Growth Status 07/28/24 12:55 Sputum Gram Stain - Final Resulted 07/28/24 12:55 Sputum Respiratory Culture - Preliminary Resulted Labs and/or images reviewed: Labs reviewed by me, Image(s) reviewed by me Problem List/Assessment/Plan Problem List/Assessment/Plan Assessment/plan #Syncope - rule out cardiogenic causes Head CT unremarkable Carotid Doppler showed right-sided nonconclusive thrombus. Left carotid is unremarkable Echocardiogram pending EKG reviewed, shows sinus tachycardia Telemetry #Community-acquired pneumonia, Gram-positive and Gram-negative Started ceftriaxone and doxycycline 07/28 Nebulized levalbuterol and ipratropium q.6 hours scheduled COVID and influenza testing negative Chest x-ray reviewed, shows bilateral diffuse opacities versus venous congestion CT angio completed, shows Patchy bilateral airspace disease with superimposed ground-glass opacities. Bilateral hilar consolidation/ lymphadenopathy. Findings could be infectious / inflammatory or neoplastic. #Ruled out PE CT angio completed, shows no large central PE. Attenuation of some segmental branches likely due to mass effect from lymphadenopathy/consolidation. IV NS 250 cc before and after CT angio #Ruled out DVT Lower extremity Doppler unremarkable #ANGEL likely VMN monitor CMP #CAD status post PCI 2019 with 2 TI Continue aspirin 81 mg daily and atorvastatin 40 mg daily \ #Hypertension Hydralazine 10 mg IV q.6 p.r.n. for SBP greater than 150 mmHg #Vitamin-D deficiency Supplemental #Diet Soft diet DVT prophylaxis; Lovenox 40 mg sc daily Physical therapy Evaluation Case discussed with patient and daughter son at bedside, all questions have been answered Goals of care discussed with the patient and family for more than 22 minute, full code status Plan discussed with Dr. Crawford Plan discussed with: Patient, Other My Orders My Orders Orders - FOZIA MELARA Procedure Category Date Status Time Furosemide Injection PHA 07/29/24 In Process (Lasix Injection) 18:00 Sputum Induction RT 07/29/24 Logged 12:00 Mrsa Screen CUONG 07/29/24 In Process 12:13 Date of Service: Jul 29, 2024 Billing Provider: VIVIANE CRAWFORD DO Common Visit Codes: [id number] INP/OBS CARE(HIGH) FOZIA MELARA Jul 29, 2024 16:14 VIVIANE CRAWFORD DO Jul 30, 2024 14:15
[2024-07-29] MEDS: FUROSEMIDE 20 MG/2 ML VIAL IV SCH ×2 (17:17→18:45)
[2024-07-30] VITALS (10 sets, daily range): BP systolic 122–147; BP diastolic 68–78; PULSE 96–106; RESP 17–20; TEMP 37.1; O2SAT 90–99
[2024-07-30 05:10] LABS: Basophils # (auto) 0 10 ^3/uL (0-0.2); Basophils % (auto) 0.2 % (0.0-2.0); Eosinophils # (auto) 0.1 10 ^3/uL (0-0.8); Eosinophils % (auto) 0.7 % (0.0-7.0); Hematocrit 37.1 % (41.0-53.0); Hemoglobin 12.7 g/dL (13.5-17.5); Lymphocytes # (auto) 1.5 10 ^3/uL (0.4-5.4); Lymphocytes % (auto) 16.9 % (10.0-50.0); Mean Corpuscular Hemoglobin 29.9 pg (28.0-32.0); Mean Corpuscular Hgb Conc. 34.1 g/dL (32.0-36.0); Mean Corpuscular Volume 87.7 fL (80.0-100.0); Monocytes # (auto) 1.4 10 ^3/uL (0-1.3); Neutrophils # (auto) 5.9 10 ^3/uL (1.6-8.6); Neutrophils % (auto) 66.2 % (37.0-80.0); Nucleated Red Blood Cells % 0.2 %; Platelet Count (auto) 200 10^3/uL (140-450); Red Blood Cells 4.23 10^6/uL (4.5-5.90); Red Cell Distribution Width 14.3 % (11.8-14.3)
[2024-07-30 05:14] LABS: Anion Gap 8 (5-15); Carbon Dioxide 25 mmol/L (20-31); Chloride 106 mmol/L (98-107); Potassium 3.8 mmol/L (3.5-5.1); Sodium 139 mmol/L (136-145)
[2024-07-30 05:16] LABS: Calcium 9.1 mg/dL (8.7-10.4)
[2024-07-30 05:20] LABS: BUN/Creatinine Ratio 18.6 (10.0-20.0); Blood Urea Nitrogen 22 mg/dL (9-23); Glucose 93 mg/dL (74-106)
[2024-07-30 05:21] LABS: Magnesium 1.9 mg/dL (1.6-2.6)
[2024-07-30] MEDS: ERGOCALCIFEROL 50,000 UNIT(1.25MG) CAP PO SCH (09:52)
[2024-07-30] MEDS ORDERED: AZIT-43 PO (14:13)
--- NOTE | 2024-07-30 14:14 | DVHDSRES ---
Discharge Summary Date of Admission Resident Creating Document: VASQUEZ SAWANT RESIDENT Jul 27, 2024 at 18:48 Date of Discharge: Jul 30, 2024 Admitting Diagnosis Syncope Labs/Diagnostic Data: Laboratory Results Test 07/30/24 04:28 07/28/24 12:45 07/28/24 06:48 07/27/24 19:00 White Blood Count 9.0 10^3/uL (4.4-10.8) Red Blood Count 4.23 10^6/uL (4.5-5.90) Hemoglobin 12.7 g/dL (13.5-17.5) Hematocrit 37.1 % (41.0-53.0) Mean Corpuscular Volume 87.7 fL (80.0-100.0) Mean Corpuscular Hemoglobin 29.9 pg (28.0-32.0) Mean Corpuscular Hemoglobin Concent 34.1 g/dL (32.0-36.0) Red Cell Distribution Width 14.3 % (11.8-14.3) Platelet Count 200 10^3/uL (140-450) Mean Platelet Volume 9.8 fL (6.9-10.8) Neutrophils (%) (Auto) 66.2 % (37.0-80.0) Lymphocytes (%) (Auto) 16.9 % (10.0-50.0) Monocytes (%) (Auto) 16.0 % (0.0-12.0) Eosinophils (%) (Auto) 0.7 % (0.0-7.0) Basophils (%) (Auto) 0.2 % (0.0-2.0) Neutrophils # (Auto) 5.9 10 ^3/uL (1.6-8.6) Lymphocytes # (Auto) 1.5 10 ^3/uL (0.4-5.4) Monocytes # (Auto) 1.4 10 ^3/uL (0-1.3) Eosinophils # (Auto) 0.1 10 ^3/uL (0-0.8) Basophils # (Auto) 0 10 ^3/uL (0-0.2) Nucleated Red Blood Cells 0.2 % Sodium Level 139 mmol/L (136-145) Potassium Level 3.8 mmol/L (3.5-5.1) Chloride Level 106 mmol/L (98-107) Carbon Dioxide Level 25 mmol/L (20-31) Anion Gap 8 (5-15) Blood Urea Nitrogen 22 mg/dL (9-23) Creatinine 1.18 mg/dL (0.700-1.30) Glomerular Filtration Rate Calc 63 mL/min (>90) BUN/Creatinine Ratio 18.6 (10.0-20.0) Serum Glucose 93 mg/dL (74-106) Calcium Level 9.1 mg/dL (8.7-10.4) Magnesium Level 1.9 mg/dL (1.6-2.6) Differential Total Cells Counted 100.0 (100) Neutrophils % (Manual) 90 (37.0-80.0) Band Neutrophils % (Manual) 4 Lymphocytes % (Manual) 4 (10.0-50.0) Monocytes % (Manual) 2 (0-12) Eosinophils % (Manual) 0 (0-7) Basophils % (Manual) 0 (0.0-2.0) Metamyelocytes % (manual) 0 Myelocytes % (Manual) 0 Promyelocytes % (Manual) 0 Blast Cells % (Manual) 0 Reactive Lymphocytes 0 Platelet Estimate Adequate Poikilocytosis (manual) Slight Tear Drop Cells Few Prothrombin Time 11.2 sec (9.3-11.8) Prothrombin Time INR 1.06 (0.9-1.15) Activated Partial Thromboplast Time 27.5 SEC (24.5-34.5) Creatine Kinase 145 U/L (46-171) Vitamin B12 Level 750 pg/mL (211-911) Vitamin D 25-Hydroxy 34.9 ng/mL (30.0-100) Thyroid Stimulating Hormone (TSH) 1.31 uIU/mL (0.55-4.78) Urine Color Light-yellow (Yellow) Urine Clarity Clear (Clear) Urine pH 5.0 (5.0-9.0) Urine Specific [place] 1.016 (1.001-1.035) Urine Protein Negative (Negative) Urine Ketones Negative (Negative) Urine Blood Negative /uL (Negative) Urine Nitrite Negative (Negative) Urine Bilirubin Negative (Negative) Urine Urobilinogen Normal mg/dL (Negative) Urine Leukocyte Esterase Negative /uL (Negative) Urine RBC <1 /hpf (0 - 3) Urine WBC 1 /hpf (0 - 3) Urine Squamous Epithelial Cells Few /hpf (<5) Urine Bacteria None seen /hpf (None Seen) Urine Hyaline Casts Mod /lpf (0 - 2) Urine Mucus Few (None Seen) Urine Glucose Normal mg/dL (Normal) Test 07/27/24 18:50 07/27/24 16:56 07/27/24 16:54 07/27/24 13:45 Influenza Type A Antigen Negative (Negative) Influenza Type B Antigen Negative (Negative) SARS-CoV-2 Antigen (Rapid) Negative (NEGATIVE) Blood Gas Specimen Type Arterial Blood Gas Sample Site Right brachial Blood Gas Patient Temperature 37.0 Arterial Blood Date Drawn [id number] Arterial Blood pH 7.390 (7.350-7.450) Arterial Blood Partial Pressure CO2 35.8 mmHg (35.0-48.0) Arterial Blood Partial Pressure O2 72.3 mmHg (83.0-108.0) Arterial Blood HCO3 21.2 mmol/L (21.0-28.0) Arterial Blood Oxygen Saturation 94.0 % (94.0-98.0) Arterial Blood Base Excess -3.2 mmol/L (-2.0-3.0) Arterial Blood Oxyhemoglobin 93.0 % (94.0-98.0) Arterial Blood Carboxyhemoglobin 0.6 % (0.5-1.5) Arterial Blood Methemoglobin 0.5 % (0.0-1.5) Collin Test N/a Blood Gas Total Hemoglobin 13.20 g/dL (13.5-17.5) Blood Gas Liter Flow 2.00 Blood Gas Modality Nasal cannula FiO2 % 28.0 Troponin I High Sensitivity 12 ng/L (</=54) Lactic Acid Level 1.8 mmol/L (0.4-2.0) Total Bilirubin 0.6 mg/dL (0.2-1.0) Aspartate Amino Transferase (AST) 17 U/L (13-40) Alanine Aminotransferase (ALT) 27 U/L (7-40) Alkaline Phosphatase 102 U/L (46-116) B-Type Natriuretic Peptide 29.65 pg/mL (0-100) Total Protein 6.5 g/dL (5.7-8.2) Albumin 4.0 g/dL (3.2-4.8) Other Laboratory Tests 07/30/24 04:28 Brief Hx & Hospital Course: Ralph Welsh is a 79-year-old male patient with PMHx with a history of CAD status post PCI with 2 TI 2019 (1 at [place], 1 at [facility]), history of bilateral pneumonia status post intubation in 2019, congestive heart failure who presented to the ER with a chief complaint of generalized weakness, dizziness, syncope. Patient reports feeling generalized weakness and dizziness for the past 2 months associated with feeling of cold, sweaty. He reports worsening shortness of breath for the past 2 weeks associated with productive cough with white phlegm. Patient experienced similar symptoms 07/27 f following which patient experienced loss of consciousness but did not fall or hit his head. Per daughter who witnessed the event, patient did not had any seizure-like activity. Patient did urinate during the syncopal event but did not lose underwent bowel movement or experienced tongue biting. Family reports given 4 tablets of nitroglycerin during the event. Patient was unconscious for the next 30 minutes. On the arrival of EMS, patient received oxygen following which patient become more alert but he was still confused. Patient denies chest pain, fever, chills, nausea, vomiting. Social history Lives with daughter, quit smoking recently-heavy smoker in the past, denies illicit drug use Home medication: Us aspirin 81 mg, atorvastatin 10 mg, Coreg 3.125 b.i.d., furosemide 20 mg daily, albuterol inhaler During Hospital workup, Head CT unremarkable. Carotid Doppler showed right-sided nonocclusive thrombus. Left carotid is unremarkable. Echocardiogram showed LVEF 65% by visual estimate, moderate LVH, normal RV function, left atrium enlarged. EKG reviewed, shows sinus tachycardia. Telemetry reviewed, shows sinus tachycardia. CT angio completed, shows Patchy bilateral airspace disease with superimposed ground-glass opacities. Bilateral hilar consolidation/ lymphadenopathy. Findings could be infectious / inflammatory or neoplastic. PE was ruled out. Patient was diagnosed with Community-acquired pneumonia, Gram-positive and Gram-negative and therefore started on ceftriaxone and doxycycline 07/28 till 07/30 along with nebulized treatment. COVID and influenza negative. Final respiratory culture shows few growth of normal oropharyngeal allen. Stain showed moderate Gram- positive cocci in pair. Patient also had ANGEL on arrival, which improved with IV fluids. We continued his home medication aspirin and atorvastatin daily. 07/30-patient is hemodynamically stable, clinically stable, reporting no acute complaint, is on room air, saturating 99%, therefore is being discharged home. Discharge planning completed with the patient and daughter at bedside, agreed to the discharge planning. Patient is advised to follow up with routing equipment tender outpatient within 7-14 days to rule out cardiogenic causes of syncope. Follow up with discharge clinic appointment and primary care physician within 7-14 days. Discharge medication: Azithromycin 250 mg for the next 5 days Operations or Procedures CTA Chest with intravenous contrast INDICATION: r/p pe COMPARISON: None TECHNIQUE: Multidetector spiral CTA of the chest was performed of the chest with intravenous contrast. PULMONARY ANGIOGRAPHY PROTOCOL was utilized using a bolus- tracking technique centered on the main pulmonary artery. Axial, coronal and sagittal multiplanar and MIP reformats were performed. CONTRAST: Type of contrast: Omni 350 Contrast injected: 100 ml Radiation dose : Chest: CTDI volume is 82 mGy. Dose-length product is 970 mGy*cm The dose indicators for CT are the volume computed Tomography (CT) dose Index (CTDIvol) and the dose Length product (DLP), and are measured in units of mGy and mGy-cm, respectively. These indicators are not patient dose, but values generated from the CT scanner acquisition factors. The report includes radiation exposure data for exposures received during this examination. Findings: Pulmonary artery: No large central or large segmental pulmonary embolism. Attenuation of some segmental branches likely due to mass effect. Lower neck: Normal thyroid. Lungs: Patchy nodular airspace disease and superimposed ground-glass opacities in both lungs. Heart/Vascular Structures: Normal heart size. No pericardial effusion. Lymph Nodes: There is mediastinal and bilateral hilar lymphadenopathy/consolidation. Pleura: No pleural effusion or significant pneumothorax. Musculoskeletal: No acute osseous abnormality. Soft tissues: Normal. Upper abdomen: Limited portions of the upper abdomen are unremarkable. IMPRESSION: 1. No large central pulmonary embolism. Attenuation of some segmental branches likely due to mass effect from lymphadenopathy/consolidation. 2. Patchy bilateral airspace disease with superimposed ground-glass opacities. Bilateral hilar consolidation/ lymphadenopathy. Findings could be infectious / inflammatory or neoplastic. Clinical correlation and continued follow-up is recommended. If indicated, cT-guided biopsy or bronchoscopy with biopsy could be performed. HS:Y ATED BY: DALLAS BUCK MD DICTATED DATE/TIME: 07/28/24 1645 SIGNED BY: DALLAS BUCK MD SIGNED DATE/TIME: 07/28/24 1645 CC: ORDERING PHYSICIAN: VASQUEZ SAWANT PROCEDURE(s): BLDVT - BiLat Lower DVT REASON: dvt? ORDER NUMBER(s): [id number], ACCESSION NUMBER(s): [id number] Bilateral lower extremity venous duplex Clinical History: dvt Comparison: None Technique: Duplex Doppler evaluation of the deep venous systems of both lower extremities from the common femoral veins to the popliteal veins including color Doppler and spectral/pulsed waveform analysis was performed. Findings: RIGHT SIDE: The common femoral vein demonstrates appropriate compressibility and waveform variability . There is compressibility/patency of the great saphenous vein at the proximal thigh . The femoral vein demonstrates appropriate compressibility and waveform variability . The deep femoral vein demonstrates appropriate compressibility and waveform variability . The popliteal vein demonstrates appropriate compressibility and waveform variability . There is color flow at the tibioperoneal trunk and in the posterior tibial vein. LEFT SIDE: The common femoral vein demonstrates appropriate compressibility and waveform variability . There is compressibility/patency of the great saphenous vein at the proximal thigh . The femoral vein demonstrates appropriate compressibility and waveform variability . The deep femoral vein demonstrates appropriate compressibility and waveform variability . The popliteal vein demonstrates appropriate compressibility and waveform variability . There is color flow at the tibioperoneal trunk and in the posterior tibial vein. Impression: 1. No right or left femoropopliteal venous thrombosis. ATED BY: VICENTA BAZZI MD DICTATED DATE/TIME: 07/28/24 1221 SIGNED BY: VICENTA BAZZI MD SIGNED DATE/TIME: 07/28/24 1221 CC: ORDERING PHYSICIAN: VASQUEZ SAWANT PROCEDURE(s): CTH - STROKE CTH REASON: ORDER NUMBER(s): [id number], ACCESSION NUMBER(s): [id number] EXAM: CT STROKE CTH HISTORY: CVA. COMPARISON: None TECHNIQUE: Axial images of the head were obtained and reformatted in coronal and sagittal planes. All CT scans at this medical facility are performed using dose modulation techniques as appropriate to a performed exam including the following: Automated exposure control was utilized; adjustment of the MA and/or KV according to patient size; and use of iterative reconstruction technique. CT Dose: CTDI volume is 53.93 mGy. Dose-length product is 864.65 mGy*cm FINDINGS: There is no evidence of acute intracranial hemorrhage, mass, mass effect midline shift. There is no hydrocephalus or extra-axial fluid collection. There are chronic microvascular white matter ischemic changes. Moran-white matter differentiation is maintained.. The visualized paranasal sinuses and mastoid air cells are clear. The calvarium is intact. IMPRESSION: 1. No acute intracranial process. HS:Y ATED BY: ANDREW SHORT MD DICTATED DATE/TIME: 07/28/24 1146 SIGNED BY: ANDREW SHORT MD SIGNED DATE/TIME: 07/28/24 1146 CC: ORDERING PHYSICIAN: VASQUEZ SAWANT PROCEDURE(s): CARCL - CAROTID DUPLX W COLOR DOP REASON: syncope ORDER NUMBER(s): [id number], ACCESSION NUMBER(s): [id number] CAROTID ARTERIAL DOPPLER CLINICAL HISTORY: syncope TECHNIQUE: Doppler study of bilateral carotid/vertebral arteries were performed. Comparison: None FINDINGS: There is nonocclusive atheromatous soft plaque in the distal right common carotid artery. The bilateral common carotid, external and internal carotid arteries appear patent without hemodynamically significant stenosis. There is no significant flow limiting plaque formation identified.The spectral wave forms and peak systolic velocities are within normal limits. Antegrade flow is present within the vertebral arteries with appropriate velocities and waveforms. Right ICA/CCA PSV ratio = 0.8. Left ICA/CCA PSV ratio = 1.6 . IMPRESSION: 1. No hemodynamically significant stenosis within the carotid arteries. 2. There is nonocclusive atheromatous soft plaque in the distal right common carotid artery. HS:Y ATED BY: ANDREW SHORT MD DICTATED DATE/TIME: 07/28/24 1224 SIGNED BY: ANDREW SHORT MD SIGNED DATE/TIME: 07/28/24 1224 CC: ORDERING PHYSICIAN: FOZIA MELARA PROCEDURE(s): CXR1 - CHEST XRAY 1 VIEW REASON: Congestion ORDER NUMBER(s): [id number], ACCESSION NUMBER(s): [id number] EXAM: XY CHEST XRAY 1 VIEW Indication:Congestion Technique: Single frontal view of the chest was obtained Comparison: XY CHEST PORTABLE on DOS: 07/27/24, CHEST PORTABLE on DOS: 01/22/22, CXRP on DOS: 01/22/22, CHEST XRAY 1 VIEW on DOS: 09/18/20, CHEST PORTABLE on DOS: 09/12/20 FINDINGS: Lines and Tubes: None Lungs: Diffuse interstitial opacities. Pleura: No effusion. No pneumothorax. Cardiomediastinal contours: Unremarkable Bones: No acute osseous abnormality. IMPRESSION: Pulmonary edema, unchanged. ATED BY: MARIELA ANDERSON MD DICTATED DATE/TIME: 07/28/24845 SIGNED BY: MARIELA ANDERSON MD SIGNED DATE/TIME: 07/28/24845 CC: Condition at Discharge: Stable Final Diagnosis/Problems List Syncope - rule out cardiogenic causes Community aquired pneumonia - Gram-positive and Gram-negative Ruled out PE Ruled out DVT ANGEL likely VMN CAD status post PCI 2019 with 2 TI Congestive heart failure-no exacerbation Ischemic cardiomyopathy Hypertension Vitamin-D insufficiency Discharge Disposition: Home Discharge Instruct/Medications Diet: Cardiac 2g Na,low cholest Activity: Light activity Follow Up/Referral: Follow up with Primary care physician within 7 days Follow up with [facility] outpatient for probable event recorder within 7 days Follow up with [facility] within 7 days Medications: Per EMR Discharge Statement: "Patient was advised to return to the ER or call 911 if any headaches, dizziness, shortness of breath, chest pain, abdominal pain, bleeding, fevers, or worsening of medical condition. Patient was counseled about treatment plan, medications, possible side effects, patientverbalized understanding. All questions were answered to the best of my ability. This discharge took greater then 30 minutes in planning, reviewing documentation, counseling the patient, and discussing with other team members." ASSESSMENT ASSESSMENT Assessment Syncope - rule out cardiogenic causes Community aquired pneumonia Date of Service: Jul 30, 2024 Billing Provider: VIVIANE CRAWFORD DO Common Visit Codes: [id number] INP/OBS CARE(HIGH) VASQUEZ SAWANT RESIDENT Jul 30, 2024 14:14 VIVIANE CRAWFORD DO Jul 31, 2024 21:33
--- NOTE | 2024-08-13 15:10 | ECG ---
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
== END 2024-07-30 15:45 | disposition home or self-care (01) | DRG 720 ==
LOC: EDBD 13:14 → ER 13:14 → TELE 18:48 → WEST WING 21:57 → TELE-WESTW 07-29 07:44
PROVIDERS: ADMIT Student in an Organized Health Care Education/Training Program; ATTEND Student in an Organized Health Care Education/Training Program
DX: A41.9 Sepsis, unspecified organism (principal); N17.0 Acute kidney failure with tubular necrosis; J15.69 Pneumonia due to other Gram-negative bacteria; I11.0 Hypertensive heart disease with heart failure; I50.9 Heart failure, unspecified; Z20.822 Contact with and (suspected) exposure to COVID-19; I25.10 Atherosclerotic heart disease of native coronary artery without angina pectoris; E55.9 Vitamin D deficiency, unspecified; I25.5 Ischemic cardiomyopathy; Z95.1 Presence of aortocoronary bypass graft; Z95.5 Presence of coronary angioplasty implant and graft; I65.21 Occlusion and stenosis of right carotid artery; R55 Syncope and collapse
CPT/HCPCS: 36415; 36600; 70450; 71045; 71275; 80048; 80053; 81001; 82306; 82550; 82607; 82805; 83605; 83735; 83880; 84443; 84484; 85007; 85025; 85027; 85610; 85730; 87040; 87070; 87081; 87205; 87426; 87804; 93005; 93306; 93886; 93970; 94640; 97163; 99291; G0378; J3490

== ENCOUNTER 2025-01-22 09:44 | Inpatient (IN) | payer MEDICAID ==
[~2025-01-22] VITALS: Ht 175.3 cm; Wt 84.4 kg
[~2025-01-22 09:44] MED LIST changes: -ASCO500T11 PO; +AZIT-43 PO; -AZIT500T66 PO; -CHOL1CAP47 PO; +FLUT250M2 INH; +FURO20TA3 PO; +LOSA-534 PO; +MEMA1TAB3 PO; -METH4PAK PO; -OMEP20TA PO; -PANT40T PO; -PAR20T PO; -PRED20TA2 PO; -TAMS-35 PO; -TEMA15CA2 PO; +TICA90TA PO; -ZINC220T6 PO
--- NOTE | 2025-01-22 10:35 | ED.PDOC ---
History of Present Illness HPI Comments 79 year old male presents to the ED with a chief complaint of generalized weakness onset 1 month. Daughter states patient has been experiencing generalized weakness for the past month as well as cough, fatigue, bilateral leg numbness, shortness of breath. Patient is not able to walk due to fatigue and shortness of breath. 2 days ago, patient was sitting on chair, fell, states he feels bilateral legs numb. Was seen at urgent care, was prescribed medication with no improvement of symptoms. Chief Complaint: General Weakness Time Seen by MD: 10:25 Primary Care Provider: UNKNOWN Reviewed Notes: Medications, Allergies Allergies: Coded Allergies: NO KNOWN ALLERGIES (Unverified , 07/11/19) Home Meds Active Scripts Azithromycin (Azithromycin) 250 Mg Tab, 250 MG PO DAILY MDD 500 for 5 Days, #6 TAB 0 Refills 2 TABLETS ORALLY ON DAY ONE, THEN 1 TABLET ORALLY DAILY FOR 4 DAYS Prov:VIVIANE CRAWFORD DO 07/30/24 Carvedilol (COREG) 3.125 Mg Tab, 3.125 MG PO Q12HR for 30 Days, #60 TAB Prov:YVETTE SANTOS MD 09/17/20 Albuterol Sulfate (VENTOLIN MDI) 90 Mcg Ih, 180 MCG IN TIDPRN PRN, #1 INH Prov:YVETTE SANTOS MD 09/17/20 Reported Medications Fluticasone-Salmeterol (Advair Diskus 250/50) 1 Puff Ih, 1 PUFF INH BID, #3 INHALER 3 Refills 07/27/24 Ticagrelor Base (BRILINTA) 90 Mg Tab, 90 MG PO, TAB 07/27/24 Memantine Hydrochloride (Memantine HCl) 5 Mg Tab, 5 MG PO, TAB 07/27/24 Furosemide (Furosemide) 20 Mg Tab, 1 TAB PO DAILY, #90 TAB 1 Refill 07/27/24 Losartan Potassium (Losartan Potassium) 50 Mg Tab, 1 TAB PO DAILY, #30 TAB 5 Refills 07/27/24 Aspirin (Aspir-Low) 81 Mg Tab, 81 MG PO DAILY for 30 Days, MG 07/11/19 Atorvastatin Calcium (ATORVASTATIN CALCIUM) 10 Mg Tab, 20 MG PO DAILY, TAB 07/11/19 Information Source: Patient Mode of Arrival: Ambulatory Severity: Moderate Timing: Months Duration: Since onset Prehospital treatment: None Past Medical History PAST MEDICAL HISTORY: CVA, High Lipids, HTN Surgical History: CABG, PTCA Family History Family History: Reviewed,noncontributory to illness Social History Smoker: Non-Smoker Alcohol: Denies ETOH Use Drugs: Denies Drug Use Lives In: Home Constitutional: reports: chills, diaphoresis, fatigue, fever, malaise, sweats, weakness, others EENTM: denies: blurred vision, double vision, ear bleeding, ear discharge, ear drainage, ear pain, ear ringing, eye pain, eye redness, hearing loss, mouth pain, mouth swelling, nasal discharge, nose bleeding, nose congestion, nose pain, photophobia, tearing, throat pain, throat swelling, voice changes, others Respiratory: reports: cough, shortness of breath; denies: hemoptysis, orthopnea, SOB at rest, SOB with excertion, stridor, wheezing, others Cardiovascular: denies: chest pain, dizzy spells, diaphoresis, Dyspnea on exertion, edema, irregular heart beat, left arm pain, lightheadedness, palpitations, PND, syncope, others Gastrointestinal: denies: abdomen distended, abdominal pain, blood streaked bowels, constipated, diarrhea, dysphagia, difficulty swallowing, hematemesis, melena, nausea, poor appetite, poor fluid intake, rectal bleeding, rectal pain, vomiting, others Genitourinary: denies: burning, dysuria, flank pain, frequency, hematuria, incontinence, penile discharge, penile sore, pain, testicle pain, testicle swelling, urgency, others Neurological: reports: numbness (bilateral legs), weakness; denies: dizziness, fainting, headache, left sided numbness, left sided weakness, paresthesia, pre- existing deficit, right sided numbness, right sided weakness, seizure, speech pr oblems, tingling, tremors, others Musculoskeletal: denies: back pain, gout, joint pain, joint swelling, muscle pain, muscle stiffness, neck pain, others Integumetry: denies: bruises, change in color, change in hair/nails, dryness, laceration, lesions, lumps, rash, wounds, others Allergic/Immunocompromised: denies: Difficulty Healing, Frequent Infections, Hives, Itching, others Hematologic/Lymphatic: denies: anemia, blood clots, easy bleeding, easy bruising, swollen glands, others Endocrine: denies: excessive hunger, excessive sweating, excessive thirst, excessive urination, flushing, intolerance to cold, intolerance to heat, unexplained weight gain, unexplained weight loss, others Psychiatric: denies: anxiety, bipolar disorder, depression, hopeless, panic disorder, schizophrenia, sleepless, suicidal, others All Other Systems: Reviewed and Negative Physical Exam General Appearance: Moderate Distress, Normal HEENT: Normal ENT Inspection, Pharynx Normal, TMs Normal Neck: Full Range of Motion, Non-Tender, Normal, Normal Inspection Respiratory: Chest Non-Tender, Lungs Clear, No Accessory Muscle Use, No Respiratory Distress, Normal Breath Sounds Cardiovascular: No Edema, No JVD, No Murmur, No Gallop, Normal Peripheral Pulses, Regular Rate/Rhythm Breast Exam: Deferred Gastrointestinal: No Organomegaly, Non Tender, No Pulsatile Mass, Normal Bowel Sounds, Soft Genitalia: Deferred Pelvic: Deferred Rectal: Deferred Extremities: No calf tenderness, Normal capillary refill, Normal inspection, Normal range of motion, Non-tender, No pedal edema Musculoskeletal : Apperance: Normal Neurologic: Alert, demographer II-XII nml as Tested, No Motor Deficits, Normal Affect, Normal Mood, No Sensory Deficits Cerebellar Function: NOT DONE Reflexes: NOT DONE Skin: Dry, Normal Color, Warm Peripheral Pulses: 3+ Radial (R), 3+ Radial (L) Lymphatic: No Adenopathy Was a procedure done? Was a procedure done?: No EKG EKG : Pulse Rate (adult): 60 Cardiac Rhythm: NSR Block: RBBB Differential Dx Considerations may include: Anemia Electrolyte imbalance X-Ray, Labs, Meds, VS Vital Signs Date Time Temp Pulse Resp B/P (MAP) Pulse Ox O2 Delivery O2 Flow Rate FiO2 01/22/25 12:26 114/59 01/22/25 12:15 98.8 88 20 114/59 (77) 94 98.8 01/22/25 12:15 88 20 94 Room Air* 0 21 01/22/25 11:43 60 01/22/25 10:22 87 01/22/25 10:16 Room Air 0 01/22/25 10:16 98.8 85 14 102/54 (70) 92 98.8 Lab Test 01/22/25 12:14 01/22/25 12:04 01/22/25 10:58 01/22/25 10:11 Range/Units Urine Color Pending Urine Clarity Pending Urine pH Pending Urine Specific [place] Pending Urine Protein Pending Urine Ketones Pending Urine Blood Pending Urine Nitrite Pending Urine Bilirubin Pending Urine Urobilinogen Pending Urine Leukocyte Esterase Pending Urine RBC Pending Urine Microscopic WBC Pending Urine Squamous Epithelial Cells Pending Urine Bacteria Pending Urine Glucose Pending Troponin I High Sensitivity 12 13 </=54 ng/L White Blood Count 11.1 H 4.4-10.8 10^3/uL Red Blood Count 3.97 L 4.5-5.90 10^6/uL Hemoglobin 10.8 L 13.5-17.5 g/dL Hematocrit 32.7 L 41.0-53.0 % Mean Corpuscular Volume 82.2 80.0-100.0 fL Mean Corpuscular Hemoglobin 27.2 L 28.0-32.0 pg Mean Corpuscular Hemoglobin Concent 33.1 32.0-36.0 g/dL Red Cell Distribution Width 13.7 11.8-14.3 % Platelet Count 314 140-450 10^3/uL Mean Platelet Volume 8.4 6.9-10.8 fL Neutrophils (%) (Auto) 80.4 H 37.0-80.0 % Lymphocytes (%) (Auto) 6.7 L 10.0-50.0 % Monocytes (%) (Auto) 10.6 0.0-12.0 % Eosinophils (%) (Auto) 1.8 0.0-7.0 % Basophils (%) (Auto) 0.5 0.0-2.0 % Neutrophils # (Auto) 8.9 H 1.6-8.6 10 ^3/uL Lymphocytes # (Auto) 0.7 0.4-5.4 10 ^3/uL Monocytes # (Auto) 1.2 0-1.3 10 ^3/uL Eosinophils # (Auto) 0.2 0-0.8 10 ^3/uL Basophils # (Auto) 0.1 0-0.2 10 ^3/uL Nucleated Red Blood Cells 0.1 % Sodium Level 133 L 136-145 mmol/L Potassium Level 4.0 3.5-5.1 mmol/L Chloride Level 100 98-107 mmol/L Carbon Dioxide Level 25 20-31 mmol/L Anion Gap 8 5-15 Blood Urea Nitrogen 18 9-23 mg/dL Creatinine 1.05 0.700-1.30 mg/dL Glomerular Filtration Rate Calc 72 >90 mL/min BUN/Creatinine Ratio 17.1 10.0-20.0 Serum Glucose 117 H 74-106 mg/dL Calcium Level 9.9 8.7-10.4 mg/dL POC Glucose 133 H 70-106 mg/dl Current Medications Medications (Trade) Dose Ordered Sig/Maria R Route Start Time Stop Time Status Last Admin Furosemide (Lasix Injection) 20 mg ONCE ONCE IV 01/22/25 12:00 01/22/25 12:01 DC 01/22/25 12:26 Ceftriaxone Sodium 50 ml @ 100 mls/hr ONCE ONCE IV 01/22/25 12:00 01/22/25 12:29 DC 01/22/25 12:26 Azithromycin 250 ml @ 125 mls/hr ONCE ONCE IV 01/22/25 12:00 01/22/25 13:59 01/22/25 12:49 Patient alert. Complaining of generalized weakness. History of coronary artery disease CVA. Vitals stable. Unable to ambulate without assistance. As per family he has been getting worse. He does have a history of hypertension. Blood pressure on the low side. Establish intravenous access. Was given fluids. Blood sugar slightly elevated. EKG reviewed does not show any acute changes. Continue cardiac monitoring. Chest x-ray reviewed does show inflammation with a edema. Possible pneumonitis. Was given Rocephin. Was given azithromycin. Was given Lasix. Explained to the patient. [place] [address] Ph: [phone] DIAGNOSTIC IMAGING Diagnostic Imaging Report : [id number] Signed PATIENT: ABA JAMES ACCT: [id number] UNIT: [id number] : 1945 LOC: ER ROOM / BED: / AGE / SEX: 79 / M ADM STATUS: REG ER SERVICE 1039 ORDERING PHYSICIAN: SERAFIN ANN MD PROCEDURE(s): CXRP - CHEST PORTABLE REASON: sob ORDER NUMBER(s): [id number], ACCESSION NUMBER(s): [id number] EXAM: XY CHEST PORTABLE Indication: sob Technique: Single frontal view of the chest was obtained Comparison: XY CHEST XRAY 1 VIEW on DOS: 07/28/24, XY CHEST PORTABLE on DOS: 07/27/24, CHEST PORTABLE on DOS: 01/22/22, CXRP on DOS: 01/22/22, CHEST XRAY 1 VIEW on DOS: 09/18/20 FINDINGS: Lines and Tubes: None Lungs: Diffuse multifocal interstitial opacities. Pleura: No effusion. No pneumothorax. Cardiomediastinal contours: Unremarkable Bones: No acute osseous abnormality. IMPRESSION: Diffuse bilateral interstitial opacities suggestive of atypical infection or pulmonary edema. ATED BY: MARIELA ANDERSON MD DICTATED DATE/TIME: 01/22/251107 SIGNED BY: MARIELA ANDERSON MD SIGNED DATE/TIME: 01/22/258 CC: Time of 1ST Reevaluation: 10:55 Reevaluation 1ST: Unchanged Patient Education/Counseling: Diagnosis, Treatment, Prognosis Family Education/Counseling: Diagnosis, Treatment, Prognosis Departure 1 Departure Time of Disposition: 10:41 Impression: Primary Impression: Pneumonitis Additional Impressions: Generalized weakness Pulmonary edema Qualified Codes: J81.0 - Acute pulmonary edema Disposition: ADMITTED INPATIENT Admit to: Med Surg Condition: Guarded Critical Care Note Critical Care Time?: Yes (45 min-critical care time only) Critical care comment: Pneumonitis continue to monitor Stability Stability form required: No Heart Score Heart Score: Heart Score Response (Comments) Value History Slightly Suspicious 0 EKG Normal 0 Age >65 2 Risk Factors >3 or Hx ASHD 2 Troponin Normal limit 0 Total 4 I personally scribed for SERAFIN ANN MD ([email or web address]) on 01/22/25 at 10:35. Electronically submitted by Natty Tolentino ([email or web address]). I personally scribed for SERAFIN ANN MD ([email or web address]) on 01/22/25 at 11:43. Electronically submitted by Natty Tolentino ([email or web address]). I personally scribed for SERAFIN ANN MD ([email or web address]) on 01/22/25 at 13:00. Electronically submitted by Natty Tolentino ([email or web address]). SERAIFN ANN MD January 22, 2025 10:35
[2025-01-22 11:07] LABS: Basophils # (auto) 0.1 10 ^3/uL (0-0.2); Basophils % (auto) 0.5 % (0.0-2.0); Eosinophils # (auto) 0.2 10 ^3/uL (0-0.8); Eosinophils % (auto) 1.8 % (0.0-7.0); Hematocrit 32.7 % (41.0-53.0); Hemoglobin 10.8 g/dL (13.5-17.5); Lymphocytes # (auto) 0.7 10 ^3/uL (0.4-5.4); Lymphocytes % (auto) 6.7 % (10.0-50.0); Mean Corpuscular Hemoglobin 27.2 pg (28.0-32.0); Mean Corpuscular Hgb Conc. 33.1 g/dL (32.0-36.0); Mean Corpuscular Volume 82.2 fL (80.0-100.0); Monocytes # (auto) 1.2 10 ^3/uL (0-1.3); Monocytes % (auto) 10.6 % (0.0-12.0); Neutrophils # (auto) 8.9 10 ^3/uL (1.6-8.6); Neutrophils % (auto) 80.4 % (37.0-80.0); Nucleated Red Blood Cells % 0.1 %; Platelet Count (auto) 314 10^3/uL (140-450); Red Blood Cells 3.97 10^6/uL (4.5-5.90); Red Cell Distribution Width 13.7 % (11.8-14.3); White Blood Cell 11.1 10^3/uL (4.4-10.8)
--- NOTE | 2025-01-22 11:11 | DVH ---
EXAM: XY CHEST PORTABLE Indication: sob Technique: Single frontal view of the chest was obtained Comparison: XY CHEST XRAY 1 VIEW on DOS: 07/28/24, XY CHEST PORTABLE on DOS: 07/27/24, CHEST PORTABLE on DOS: 01/22/22, CXRP on DOS: 01/22/22, CHEST XRAY 1 VIEW on DOS: 09/18/20 FINDINGS: Lines and Tubes: None Lungs: Diffuse multifocal interstitial opacities. Pleura: No effusion. No pneumothorax. Cardiomediastinal contours: Unremarkable Bones: No acute osseous abnormality. IMPRESSION: Diffuse bilateral interstitial opacities suggestive of atypical infection or pulmonary edema.
[2025-01-22 11:18] LABS: Chloride 100 mmol/L (98-107)
[2025-01-22 11:19] LABS: Anion Gap 8 (5-15); Calcium 9.9 mg/dL (8.7-10.4); Carbon Dioxide 25 mmol/L (20-31)
[2025-01-22 11:24] LABS: BUN/Creatinine Ratio 17.1 (10.0-20.0); Blood Urea Nitrogen 18 mg/dL (9-23)
[2025-01-22 11:31] LABS: Glucose 117 mg/dL (74-106); Sodium 133 mmol/L (136-145)
[2025-01-22 12:15] VITALS: PULSE 88; RESP 20; O2SAT 94
[2025-01-22] MEDS: cefTRIAXone 1GM/50ML D5W 50 ML IV ONE (12:26)
[2025-01-22] MEDS: FUROSEMIDE 20 MG/2 ML VIAL IV ONE (12:26)
[2025-01-22] MEDS: AZITHROMYCIN 500MG/ 250ML 250 ML IV ONE (12:49)
[2025-01-22 12:58] LABS: Urine Bacteria None Seen /hpf (None Seen)
[2025-01-22 13:06] LABS: Urine Blood Negative /uL (Negative); Urine Clarity Clear (Clear); Urine Color Colorless (Yellow); Urine Protein, UAD Negative (Negative); Urine Specific Gravity 1.008 (1.001-1.035); Urine Squamous Epithelial Cell None Seen /hpf (<5); Urine Urobilinogen Normal (Negative); Urine pH 5.5 (5.0-9.0)
[2025-01-22 13:12] LABS: Urine WBC < 1 /HPF (0-3)
[2025-01-22] MEDS ORDERED: ONDANSETRON HCL 4 MG/2 ML VIAL IV PRN (16:30)
[2025-01-22] MEDS ORDERED: DOCUSATE SOD 100 MG CAP PO PRN (16:30)
--- NOTE | 2025-01-22 16:41 | DVHHP2 ---
History of Present Illness Reason for Visit: Generalized Weakness History of Present Illness Ralph Welsh is a 79-year-old male with past medical history of hypertension, hyperlipidemia, dementia, and diabetes, who came in for generalized weakness and cough. Patient states he has been experiencing cough, shortness of breath, and chest pain for about a month. He went to urgent care a couple weeks ago, but his symptoms persist. He states the shortness of breath is worse with exertion, and that he is coughing up white phlegm. Patient and family also state that the patient fell out of his wheel chair on Wednesday. He states he slide out of it, did not hit his head, and did not lose consciousness. Cardiovascular: HTN, hyperipidemia SOLUTIONS ARCHITECT: CVA Past Surgical History: Other (PTCA 2 stents, ) Smoke: No ALCOHOL: none Drugs: None Lives: with Family Domestic Violence: Neg Review of Systems Constitutional: Yes: Weakness; No: Fever, Chills, Sweats, Malaise, Other Eyes: No: Pain, Vision change, Conjunctivae inflammation, Eyelid inflammation, Other, Redness ENT: No: Ear pain, Ear discharge, Nose pain, Nose discharge, Nose congestion, Mouth pain, Mouth swelling, Throat pain, Throat swelling, Other Respiratory: Cough, Shortness of breath, SOB with excertion, Sputum; No: Dry, Wheezing, Hemoptysis, Pleuritic Pain, Wheezing, Other Cardiovascular: No: Chest Pain, Palpitations, Orthopnea, Paroxysmal Noc. Dyspnea, Edema, Lt Headedness, Other Gastrointestinal: No: Nausea, Vomiting, Abdominal Pain, Diarrhea, Constipation, Melena, Hematochezia, Other Genitourinary: No Dysuria, No Frequency, No Incontinence, No Hematuria, No Retention, No Other Musculoskeletal: No: other, neck pain, shoulder pain, arm pain, back pain, hand pain, leg pain, foot pain Skin: No: Rash, Lesions, Jaundice, Bruising, Other Neurological: No: Weakness, Numbness, Incoordination, Change in speech, Confusion, Seizures, Other Allergies: Coded Allergies: NO KNOWN ALLERGIES (Unverified , 07/11/19) Exam Vital Signs Vital Signs Date Time Temp Pulse Resp B/P (MAP) Pulse Ox O2 Delivery O2 Flow Rate FiO2 01/22/25 15:00 98.5 79 17 102/69 (80) 94 98.5 01/22/25 12:15 Room Air* 0 21 General Appearance: Alert, Cooperative, mild distress, Other (oriented x 2) HEENT: Atraumatic, PERRLA Respiratory: Other (Left side crackles and congestion) Cardiovascular: Regular rate, Normal S1, Normal S2 Abdominal: Normal bowel sounds, Soft, No tenderness Extremities: No clubbing, No cyanosis, No edema Skin: No rashes, No breakdown, No significant lesion Neuro: Normal gait, Normal speech, Strength at 5/5 X4 ext Psych/Mental Status: Mental status NL, Mood NL Labs/Xrays Labs Test 01/22/25 13:49 01/22/25 12:14 01/22/25 10:58 01/22/25 10:11 Range/Units Troponin I High Sensitivity 13 </=54 ng/L Urine Color Colorless Yellow Urine Clarity Clear Clear Urine pH 5.5 5.0-9.0 Urine Specific [place] 1.008 1.001-1.035 Urine Protein Negative Negative Urine Ketones Negative Negative Urine Blood Negative Negative /uL Urine Nitrite Negative Negative Urine Bilirubin Negative Negative Urine Urobilinogen Normal Negative mg/dL Urine Leukocyte Esterase Negative Negative /uL Urine RBC None seen 0 - 3 /hpf Urine Microscopic WBC < 1 0-3 /HPF Urine Squamous Epithelial Cells None seen <5 /hpf Urine Bacteria None seen None Seen /hpf Urine Glucose Normal Normal mg/dL White Blood Count 11.1 H 4.4-10.8 10^3/uL Red Blood Count 3.97 L 4.5-5.90 10^6/uL Hemoglobin 10.8 L 13.5-17.5 g/dL Hematocrit 32.7 L 41.0-53.0 % Mean Corpuscular Volume 82.2 80.0-100.0 fL Mean Corpuscular Hemoglobin 27.2 L 28.0-32.0 pg Mean Corpuscular Hemoglobin Concent 33.1 32.0-36.0 g/dL Red Cell Distribution Width 13.7 11.8-14.3 % Platelet Count 314 140-450 10^3/uL Mean Platelet Volume 8.4 6.9-10.8 fL Neutrophils (%) (Auto) 80.4 H 37.0-80.0 % Lymphocytes (%) (Auto) 6.7 L 10.0-50.0 % Monocytes (%) (Auto) 10.6 0.0-12.0 % Eosinophils (%) (Auto) 1.8 0.0-7.0 % Basophils (%) (Auto) 0.5 0.0-2.0 % Neutrophils # (Auto) 8.9 H 1.6-8.6 10 ^3/uL Lymphocytes # (Auto) 0.7 0.4-5.4 10 ^3/uL Monocytes # (Auto) 1.2 0-1.3 10 ^3/uL Eosinophils # (Auto) 0.2 0-0.8 10 ^3/uL Basophils # (Auto) 0.1 0-0.2 10 ^3/uL Nucleated Red Blood Cells 0.1 % Sodium Level 133 L 136-145 mmol/L Potassium Level 4.0 3.5-5.1 mmol/L Chloride Level 100 98-107 mmol/L Carbon Dioxide Level 25 20-31 mmol/L Anion Gap 8 5-15 Blood Urea Nitrogen 18 9-23 mg/dL Creatinine 1.05 0.700-1.30 mg/dL Glomerular Filtration Rate Calc 72 >90 mL/min BUN/Creatinine Ratio 17.1 10.0-20.0 Serum Glucose 117 H 74-106 mg/dL Calcium Level 9.9 8.7-10.4 mg/dL POC Glucose 133 H 70-106 mg/dl EXAM: XY CHEST PORTABLE FINDINGS: Lines and Tubes: None Lungs: Diffuse multifocal interstitial opacities. Pleura: No effusion. No pneumothorax. Cardiomediastinal contours: Unremarkable Bones: No acute osseous abnormality. IMPRESSION: Diffuse bilateral interstitial opacities suggestive of atypical infection or pulmonary edema. Assessment/Plan Assessment/Plan Assessment: Pulmonary edema, Possible pneumonia, Hypertension, Hyperlipidemia, Plan: Admit to Med-Surg, IV antibiotics, Breathing treatments, Sputum culture, Home medications reconciled, Plan discussed with: Patient Date of Service: January 22, 2025 Billing Provider: BRODERICK MANDUJANO Common Visit Codes: [id number] INP/OBS CARE (MOD) BRODERICK MANDUJANO January 22, 2025 16:41
[2025-01-22 19:51] VITALS: BP 130/52; PULSE 90; RESP 18; O2SAT 94
[2025-01-22] MEDS: ACETAMINOPHEN 325 MG TAB PO PRN (20:36)
[2025-01-22] MEDS: ATORVASTATIN 20 MG TAB PO SCH (21:33)
[2025-01-22] MEDS: CARVEDILOL 3.125 MG TAB PO SCH (21:34)
[2025-01-22] MEDS: TICAGRELOR 90 MG TAB PO SCH (21:38)
[2025-01-22] MEDS: MEMANTINE HCL 5 MG TAB PO SCH (21:39)
[2025-01-22 22:05] VITALS: PULSE 83; RESP 16; O2SAT 93
[2025-01-23] VITALS (16 sets, daily range): BP systolic 126–153; BP diastolic 52–72; PULSE 48–89; RESP 16–22; TEMP 97.6–98.3; O2SAT 94–100
[2025-01-23] MEDS ORDERED: ATOR20TA50 PO (00:19)
[2025-01-23] MEDS ORDERED: CARV3.1240 PO (00:19)
[2025-01-23] MEDS ORDERED: ASPI-325 PO (00:19)
[2025-01-23] MEDS ORDERED: CLOP75TA70 PO (00:19)
[2025-01-23] MEDS ORDERED: ALBU108A5 INH (00:19)
[2025-01-23] MEDS ORDERED: BENZ100C97 PO (00:19)
[2025-01-23] MEDS ORDERED: FURO20TA4 PO (00:19)
[2025-01-23] MEDS ORDERED: DICL1GEL73 TOP (00:20)
[2025-01-23] MEDS ORDERED: LIDO3CRE35 TOP (00:20)
[2025-01-23] MEDS ORDERED: KETO2CRE4 TOP (00:20)
[2025-01-23] MEDS: IPRATROPIUM BROM 0.5 MG/2.5ML INH SOL NEB SCH (05:59)
[2025-01-23] MEDS: ALBUTEROL SULF 2.5 MG/0.5ML(0.5%) NEB SOLN NEB SCH (05:59)
[2025-01-23 07:46] LABS: Anion Gap 10 (5-15); BUN/Creatinine Ratio 19.8 (10.0-20.0); Bilirubin, Total 0.6 mg/dL (0.2-1.0); Blood Urea Nitrogen 20 mg/dL (9-23); Calcium 9.8 mg/dL (8.7-10.4); Carbon Dioxide 23 mmol/L (20-31); Chloride 104 mmol/L (98-107); Glucose 103 mg/dL (74-106); Potassium 4.1 mmol/L (3.5-5.1); Sodium 137 mmol/L (136-145); Total Protein 6.6 g/dL (5.7-8.2)
[2025-01-23 07:49] LABS: Alanine Aminotransferase 148 U/L (7-40); Alkaline Phosphatase 166 U/L (46-116); Aspartate Aminotransferase 96 U/L (13-40)
[2025-01-23 07:55] LABS: Basophils # (auto) 0 10 ^3/uL (0-0.2); Basophils % (auto) 0.4 % (0.0-2.0); Eosinophils # (auto) 0.4 10 ^3/uL (0-0.8); Hematocrit 31.9 % (41.0-53.0); Hemoglobin 10.8 g/dL (13.5-17.5); Lymphocytes # (auto) 1.3 10 ^3/uL (0.4-5.4); Lymphocytes % (auto) 13.8 % (10.0-50.0); Mean Corpuscular Hemoglobin 27.6 pg (28.0-32.0); Mean Corpuscular Hgb Conc. 33.7 g/dL (32.0-36.0); Mean Corpuscular Volume 81.8 fL (80.0-100.0); Monocytes # (auto) 1.1 10 ^3/uL (0-1.3); Monocytes % (auto) 11.9 % (0.0-12.0); Neutrophils # (auto) 6.6 10 ^3/uL (1.6-8.6); Neutrophils % (auto) 69.9 % (37.0-80.0); Platelet Count (auto) 318 10^3/uL (140-450); Red Blood Cells 3.91 10^6/uL (4.5-5.90); Red Cell Distribution Width 13.7 % (11.8-14.3); White Blood Cell 9.4 10^3/uL (4.4-10.8)
--- NOTE | 2025-01-23 08:59 | ECG ---
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
[2025-01-23] MEDS ORDERED: PATIENTS OWN MEDICATION (Atorvastatin Calcium 20 MG) PO SCH (10:00)
[2025-01-23] MEDS: cefTRIAXone 1GM/50ML D5W 50 ML IV SCH (10:03)
[2025-01-23] MEDS: LOSARTAN POTASSIUM 50 MG TAB PO SCH (10:04)
[2025-01-23] MEDS: FUROSEMIDE 20 MG TAB PO SCH (10:05)
[2025-01-23] MEDS: ASPirin-EC 81 mg tab PO SCH (10:08)
[2025-01-23] MEDS: AZITHROMYCIN 500MG/ 250ML 250 ML IV SCH (11:25)
--- NOTE | 2025-01-23 13:35 | DVH ---
Indication: atypical pna Technique: CT axial images of the chest are obtained without contrast. Coronal and sagittal reformats were obtained. Radiation Dose Information: CTDI volume is 11.76 mGy. Dose-length product is 436.66 mGy*cm Comparison: 07/28/2024 FINDINGS: Examination degraded by motion. Trachea patent. No pneumothorax. Diffuse bilateral pulmonary airspace consolidation with ground-glas s disease, tree-in-bud nodularity and consolidative pattern. The most dominant pattern is ground-gla ss and consolidative disease. Lesion measuring 11 . Small bilateral pleural effusions. Subcarinal lymph node measuring 15 mm. Heart normal in size. Coronary artery calcification disease. No supraclavicular or axillary lymphadenopathy. Hepatic calcifications consistent with remote granulomatous disease. There are old right rib fractures. [id number] thoracic degenerative disc disease. IMPRESSION: 1. Diffuse bilateral pulmonary airspace consolidation/ground-glass disease and tree-in-bud nodularity which can be secondary to combination of pneumonia/infection, inflammatory, ARDS etiology. Follow-up to resolution to exclude any underlying neoplastic process. 2. Left upper lobe pulmonary nodule measuring 11 mm, similar to prior. Recommend follow-up per Fleis chner society criteria and pulmonology consultation for further management. 3. Coronary artery calcification disease.
--- NOTE | 2025-01-23 13:59 | DVHPN2 ---
Subjective Patient was reporting severe generalized weakness, cough, sputum production Reviewed: Care Plan, Labs, Medications Changes from previous H/P or p: No Changes General: Per HPI Eyes: No Pain, No Vision change, No Conjunctivae inflammation, No Eyelid inflammation, No Other, No Redness ENT: No Ear pain, No Ear discharge, No Nose pain, No Nose discharge, No Nose congestion, No Mouth pain, No Mouth swelling, No Throat pain, No Throat swelling, No Other Cardiovascular: No Chest Pain, No Palpitations, No Orthopnea, No Paroxysmal Noc. Dyspnea, No Edema, No Lt Headedness, No Other Respiratory: Cough; No Dry; Shortness of breath, SOB with excertion; No Wheezing, No Hemoptysis, No Pleuritic Pain; Sputum; No Other Gastrointestinal: No Nausea, No Vomiting, No Abdominal Pain, No Diarrhea, No Constipation, No Melena, No Hematochezia, No Other Genitourinary: No Dysuria, No Frequency, No Incontinence, No Hematuria, No Retention, No Other Musculoskeletal: No other, No neck pain, No shoulder pain, No arm pain, No back pain, No hand pain, No leg pain, No foot pain Skin: No Rash, No Lesions, No Jaundice, No Bruising, No Other Objective Vitals Vital Signs Date Time Temp Pulse Resp B/P (MAP) Pulse Ox O2 Delivery O2 Flow Rate FiO2 01/23/25 12:46 98.2 87 19 153/72 (99) 98 98.2 01/23/25 11:03 Nasal Cannula* 3 32 Intake/Output Intake and Output 01/23/25 07:00 Intake Total 540 ml Balance 540 ml Intake Oral 240 ml IV Total 300 ml # Voids 1 General Appearance: Alert, Oriented X3, Cooperative, mild distress HEENT: Atraumatic, PERRLA Lungs: Other (Bilateral rhonchi) Cardiovascular: Normal S1, Normal S2 Musculoskeletal: Normal sensory function, Normal motor function Skin: Dry, Intact Psych/Mental Status: Mental status NL, Mood NL Medications Current Medications Medications Dose Ordered Sig/Maria R Route Start Time Stop Time Status Last Admin Dose Admin Acetaminophen/ Hydrocodone Bitart 1 tab Q4HP PRN PO 01/22/25 16:30 Ondansetron HCl 4 mg Q4HP PRN IV 01/22/25 16:30 Docusate Sodium 100 mg BIDPRN PRN PO 01/22/25 16:30 Acetaminophen 650 mg Q6HP PRN PO 01/22/25 16:30 01/22/25 20:36 650 MG Aspirin 81 mg DAILY PO 01/23/25 10:00 01/23/25 10:08 81 MG Carvedilol 3.125 mg Q12HR PO 01/22/25 22:00 01/23/25 10:05 3.125 MG Furosemide 20 mg DAILY PO 01/23/25 10:00 01/23/25 10:05 20 MG Losartan Potassium 50 mg DAILY PO 01/23/25 10:00 01/23/25 10:04 50 MG Memantine 5 mg BID PO 01/22/25 22:00 01/23/25 10:03 5 MG Patient Own Medication 20 mg DAILY PO 01/23/25 10:00 UNV Ticagrelor 90 mg BID PO 01/22/25 22:00 01/23/25 10:04 90 MG Atorvastatin Calcium 20 mg HS PO 01/22/25 22:00 01/22/25 21:33 20 MG Ipratropium [place] 0.5 mg Q6HWA [facility] 01/23/25 06:00 01/23/25 11:03 0.5 MG Albuterol 2.5 mg Q6HWA [facility] 01/23/25 06:00 01/23/25 11:03 2.5 MG Vancomycin HCl 0 ml @ 0 mls/hr UD IV 01/23/25 14:00 UNV Cefepime HCl 50 ml @ 12.5 mls/hr Q8HR IV 01/23/25 14:00 UNV Acetylcysteine 100 mg Q6HR [facility] 01/23/25 18:00 01/24/25 12:01 UNV Laboratory Results Laboratory Tests 01/23/25 06:32 Chemistry Test 01/23/25 06:32 Albumin 4.0 g/dL (3.2-4.8) Calcium Level 9.8 mg/dL (8.7-10.4) Total Protein 6.6 g/dL (5.7-8.2) Cardiac Markers Test 01/23/25 06:32 B-Type Natriuretic Peptide 104.70 pg/mL (0-100) LFT Test 01/23/25 06:32 Alanine Aminotransferase (ALT) 148 U/L (7-40) H Alkaline Phosphatase 166 U/L (46-116) H Aspartate Amino Transferase (AST) 96 U/L (13-40) H Total Bilirubin 0.6 mg/dL (0.2-1.0) Urinalysis Test 01/22/25 12:14 Urine Color Colorless (Yellow) Urine Clarity Clear (Clear) Urine pH 5.5 (5.0-9.0) Urine Specific [place] 1.008 (1.001-1.035) Urine Protein Negative (Negative) Urine Ketones Negative (Negative) Urine Blood Negative /uL (Negative) Urine Nitrite Negative (Negative) Urine Bilirubin Negative (Negative) Urine Urobilinogen Normal mg/dL (Negative) Urine Leukocyte Esterase Negative /uL (Negative) Urine RBC None seen /hpf (0 - 3) Urine Microscopic WBC < 1 /HPF (0-3) Urine Squamous Epithelial Cells None seen /hpf (<5) Urine Bacteria None seen /hpf (None Seen) Urine Glucose Normal mg/dL (Normal) Labs and/or images reviewed: Labs reviewed by me, Image(s) reviewed by me Assessment/Plan Assessment/Plan Impression: -acute hypoxic respiratory failure -bilateral pneumonia -decompensated heart failure ruled out -coronary artery disease with previous stent placement -primary hypertension -dyslipidemia -history of CVA Plan: -CT scan of the chest performed. Results reviewed. Pulmonary consultation placed -change antibiotic therapy to cefepime and vancomycin -continue dual antiplatelet therapy -bronchodilators, add Mucomyst -repeat labs in a.m. Total time spent with patient discussing and formulating plan of care: 35 minutes. This medical document was created using an electronic medical record system with [employer] dictation system. Although this document has been carefully reviewed, there may still be some phonetic and typographical errors. These areas are purely typographical due to imperfections of the software programs, and do not reflect any compromise in the patient's medical care. Plan discussed with: Patient, Other (RN) My Orders Orders - PREMA QUACH N[employer] F[employer]ER Procedure Category Date Status Time Chest Without Contrast CT 01/23/25 Resulted 12:31 *Consult CONS 01/23/25 Transmitted / 13:53 Vancomycin Per PHA 01/23/25 Logged Pharmacy 14:00 Cefepime 1gm/ 50ml [facility] 01/23/25 Logged (Maxipime 1gm/50ml) 14:00 Acetylcysteine PHA 01/23/25 Logged Inhalation 10% 18:00 Rapid Influenza A&B LAB 01/23/25 Transmitted 13:55 Covid19 Antigen [facility] 01/23/25 Transmitted Date of Service: January 23, 2025 Billing Provider: PREMA QUACH NP Common Visit Codes: [id number] INP/OBS CARE(HIGH) PREMA QUACH NP January 23, 2025 13:59
[2025-01-23] MEDS ORDERED: VANCOMYCIN PER PHARMACY 0 MG IV SCH (14:00)
[2025-01-23 16:35] LABS: COVID19 ANTIGEN SOFIA FIA NEGATIVE (NEGATIVE)
[2025-01-23 16:39] LABS: Rapid Influenza A Negative (Negative); Rapid Influenza B Negative (Negative)
[2025-01-23] MEDS: VANCOMYCIN 1.5GM/300ML 300 ML IV ONE (16:49)
[2025-01-23] MEDS: ACETYLCYSTEINE 10 %(100MG/ML) SOL 4ML NEB SCH (19:17)
[2025-01-23] MEDS: CEFEPIME 1GM/ 50ML 50 ML IV ONE (19:43)
--- NOTE | 2025-01-23 21:32 | DVHINCON2 ---
Date of service: January 23, [address] chest, pulmonary nodule History of Present Illness 79-year-old man history of hypertension, hyperlipidemia, dementia, diabetes me llitus type 2 who presented with generalized weakness and cough. Patient is experiencing these symptoms for the last month. He was recently seen at urgent Care and treated but there was no improvement in his symptoms. His shortness of breath is worse with exertion. His cough is productive of white phlegm. He fell out of his wheelchair recently. Denies any head trauma. Denies any loss of consciousness. CT chest was obtained with bilateral opacities. Pulmonary consultation is called for evaluation. Review of systems: 14 point review of systems is negative unless otherwise noted above. Past medical history: Hypertension, hyperlipidemia, CVA, CAD status post two stent placements Past surgical history: PTCA two stents Medications: Reviewed Allergies: No known drug allergies. Family history: No family history of premature CAD. No family history of lung disease Social history: Nonsmoker. No alcohol or illicit drug use. Lives with family. Family History: Patient reports no known family medical history. Allergies: Coded Allergies: NO KNOWN ALLERGIES (Unverified , 07/11/19) Home Meds Active Scripts Azithromycin (Azithromycin) 250 Mg Tab, 250 MG PO DAILY MDD 500 for 5 Days, #6 TAB 0 Refills 2 TABLETS ORALLY ON DAY ONE, THEN 1 TABLET ORALLY DAILY FOR 4 DAYS Prov:VIVIANE CRAWFORD DO 07/30/24 Carvedilol (COREG) 3.125 Mg Tab, 3.125 MG PO Q12HR for 30 Days, #60 TAB Prov:YVETTE SANTOS MD 09/17/20 Albuterol Sulfate (VENTOLIN MDI) 90 Mcg Ih, 180 MCG IN TIDPRN PRN, #1 INH Prov:YVETTE SANTOS MD 09/17/20 Reported Medications Diclofenac Sodium (Topical) (Diclofenac Sodium) 1 % Gel, TOP 01/23/25 Ketoconazole (Ketoconazole) 2 % Cre, 1 APPLIC TOP 01/23/25 Lidocaine HCl (Lidocaine Hydrochloride) 3 % Cre, TOP 01/23/25 Benzonatate (Benzonatate) 100 Mg Cap, 1 CAP PO TID 01/23/25 Carvedilol (Carvedilol) 3.125 Mg Tab, 1 TAB PO BID 01/23/25 Atorvastatin Calcium (ATORVASTATIN CALCIUM) 20 Mg Tab, 1 TAB PO DAILY 01/23/25 Furosemide (Furosemide) 20 Mg Tab, 1 TAB PO DAILY 01/23/25 Aspirin (Aspirin Low Dose) 81 Mg Tab, 1 TAB PO DAILY 01/23/25 Albuterol Sulfate (Albuterol Sulfate Hfa) 108 Mcg/Act Aer, INH 01/23/25 Fluticasone-Salmeterol (Advair Diskus 250/50) 1 Puff Ih, 1 PUFF INH BID, #3 INHALER 3 Refills 07/27/24 Ticagrelor Base (BRILINTA) 90 Mg Tab, 90 MG PO, TAB 07/27/24 Memantine Hydrochloride (Memantine HCl) 5 Mg Tab, 5 MG PO, TAB 07/27/24 Furosemide (Furosemide) 20 Mg Tab, 1 TAB PO DAILY, #90 TAB 1 Refill 07/27/24 Losartan Potassium (Losartan Potassium) 50 Mg Tab, 1 TAB PO DAILY, #30 TAB 5 Refills 07/27/24 Aspirin (Aspir-Low) 81 Mg Tab, 81 MG PO DAILY for 30 Days, MG 07/11/19 Atorvastatin Calcium (ATORVASTATIN CALCIUM) 10 Mg Tab, 20 MG PO DAILY, TAB 07/11/19 Discontinued Reported Medications Clopidogrel Bisulfate (CLOPIDOGREL) 75 Mg Tab, 1 TAB PO DAILY 01/23/25 Current Medications Current Medications Medications (Trade) Dose Ordered Sig/Maria R Route PRN Reason Start Time Stop Time Status Last Admin Aspirin (Ecotrin Enteric Coated Tablet) 81 mg DAILY PO 01/23/25 10:00 01/23/25 10:08 Carvedilol (Coreg Tablet) 3.125 mg Q12HR PO 01/22/25 22:00 01/23/25 10:05 Furosemide (Lasix Tablet) 20 mg DAILY PO 01/23/25 10:00 01/23/25 10:05 Losartan Potassium (Cozaar Tablet) 50 mg DAILY PO 01/23/25 10:00 01/23/25 10:04 Memantine (Namenda Tablet) 5 mg BID PO 01/22/25 22:00 01/23/25 10:03 Patient Own Medication 20 mg DAILY PO 01/23/25 10:00 UNV Ticagrelor (Brilinta) 90 mg BID PO 01/22/25 22:00 01/23/25 10:04 Atorvastatin Calcium (Lipitor) 20 mg HS PO 01/22/25 22:00 01/22/25 21:33 Azithromycin 250 ml @ 125 mls/hr DAILY IV 01/23/25 10:00 01/23/25 13:56 DC 01/23/25 11:25 Ceftriaxone Sodium 50 ml @ 100 mls/hr DAILY@09 IV 01/23/25 09:00 01/23/25 13:56 DC 01/23/25 10:03 Ipratropium [place] (Atrovent Medneb) 0.5 mg Q6HWA NEB 01/23/25 06:00 01/23/25 19:17 Albuterol (Ventolin Medneb) 2.5 mg Q6HWA NEB 01/23/25 06:00 01/23/25 19:17 Vancomycin HCl 0 ml @ 0 mls/hr UD IV 01/23/25 14:00 Cefepime HCl 50 ml @ 12.5 mls/hr Q8HR IV 01/23/25 22:00 Acetylcysteine (Mucomyst Inahalation 10%) 100 mg Q6HR NEB 01/23/25 18:00 01/24/25 12:01 01/23/25 19:17 Vital Signs Vital Signs Date Time Temp Pulse Resp B/P (MAP) Pulse Ox O2 Delivery O2 Flow Rate FiO2 01/23/25 21:00 98.0 61 16 134/71 (92) 100 98.0 01/23/25 19:17 Nasal Cannula* 2 28 Physical Exam Gen.: Patient lying in bed in no apparent distress. On supplemental oxygen. Head: Normocephalic, atraumatic Eyes: EOMI/PERRLA. Ears: Normal hearing. Normal anatomy. Neck/trachea: Trachea midline, supple. Nose: Normal external anatomy. Mouth: Moist mucous membranes. Chest: Fair air entry bilaterally. No wheezing or rhonchi. Cardio vascular: Positive S1, positive S2. Regular rate and rhythm. Abdomen: Positive bowel sounds in all 4 quadrants. Soft, non-tender, non- distended. : Deferred. Rectal: Deferred Skin: Warm, dry. Extremities: 2+ radial pulses bilaterally. No lower extremity edema. Neuro: Awake, alert. No gross motor or sensory deficits. Cranial nerves II through XII intact. Gait not assessed. Labs/Diagnostic Data Labs Test 01/23/25 15:30 01/23/25 06:32 01/22/25 13:49 01/22/25 12:14 Range/Units Influenza Type A Antigen Negative Negative Influenza Type B Antigen Negative Negative SARS-CoV-2 Antigen (Rapid) Negative NEGATIVE White Blood Count 9.4 4.4-10.8 10^3/uL Red Blood Count 3.91 L 4.5-5.90 10^6/uL Hemoglobin 10.8 L 13.5-17.5 g/dL Hematocrit 31.9 L 41.0-53.0 % Mean Corpuscular Volume 81.8 80.0-100.0 fL Mean Corpuscular Hemoglobin 27.6 L 28.0-32.0 pg Mean Corpuscular Hemoglobin Concent 33.7 32.0-36.0 g/dL Red Cell Distribution Width 13.7 11.8-14.3 % Platelet Count 318 140-450 10^3/uL Mean Platelet Volume 8.8 6.9-10.8 fL Neutrophils (%) (Auto) 69.9 37.0-80.0 % Lymphocytes (%) (Auto) 13.8 10.0-50.0 % Monocytes (%) (Auto) 11.9 0.0-12.0 % Eosinophils (%) (Auto) 4.0 0.0-7.0 % Basophils (%) (Auto) 0.4 0.0-2.0 % Neutrophils # (Auto) 6.6 1.6-8.6 10 ^3/uL Lymphocytes # (Auto) 1.3 0.4-5.4 10 ^3/uL Monocytes # (Auto) 1.1 0-1.3 10 ^3/uL Eosinophils # (Auto) 0.4 0-0.8 10 ^3/uL Basophils # (Auto) 0 0-0.2 10 ^3/uL Nucleated Red Blood Cells 0.0 % Sodium Level 137 136-145 mmol/L Potassium Level 4.1 3.5-5.1 mmol/L Chloride Level 104 98-107 mmol/L Carbon Dioxide Level 23 20-31 mmol/L Anion Gap 10 5-15 Blood Urea Nitrogen 20 9-23 mg/dL Creatinine 1.01 0.700-1.30 mg/dL Glomerular Filtration Rate Calc 76 >90 mL/min BUN/Creatinine Ratio 19.8 10.0-20.0 Serum Glucose 103 74-106 mg/dL Calcium Level 9.8 8.7-10.4 mg/dL Total Bilirubin 0.6 0.2-1.0 mg/dL Aspartate Amino Transferase (AST) 96 H 13-40 U/L Alanine Aminotransferase (ALT) 148 H 7-40 U/L Alkaline Phosphatase 166 H 46-116 U/L B-Type Natriuretic Peptide 104.70 0-100 pg/mL Total Protein 6.6 5.7-8.2 g/dL Albumin 4.0 3.2-4.8 g/dL Troponin I High Sensitivity 13 </=54 ng/L Urine Color Colorless Yellow Urine Clarity Clear Clear Urine pH 5.5 5.0-9.0 Urine Specific [place] 1.008 1.001-1.035 Urine Protein Negative Negative Urine Ketones Negative Negative Urine Blood Negative Negative /uL Urine Nitrite Negative Negative Urine Bilirubin Negative Negative Urine Urobilinogen Normal Negative mg/dL Urine Leukocyte Esterase Negative Negative /uL Urine RBC None seen 0 - 3 /hpf Urine Microscopic WBC < 1 0-3 /HPF Urine Squamous Epithelial Cells None seen <5 /hpf Urine Bacteria None seen None Seen /hpf Urine Glucose Normal Normal mg/dL Test 01/22/25 10:11 Range/Units POC Glucose 133 H 70-106 mg/dl Assessment Impression: Acute hypoxic respiratory Granulomatous disease Lymphadenopathy Pleural effusions, small bilateral Ground-glass opacities on imaging Atelectasis History of rib fractures Plan: CT chest report reviewed. Hepatic calcifications, granulomatous disease. Coronary artery disease. Subcarinal lymph nodes measuring 15 mm. Small bilateral pleural effusions. Diffuse bilateral pulmonary airspace opacities. Ground-glass opacities bilaterally. Tree-in-bud nodularities. Prior rib fractures. Obtain chest ultrasound to evaluate if pleural effusions amenable for thoracentesis. COVID negative. Influenza negative. Supplemental oxygen Keep o2 saturation above 92% 2 LPM via NC Continue antibiotics Obtain sputum culture Start Diflucan for 10 days due to tree in bud opacities. Continue bronchodilators continue mucolytics. Diurese with lasix Monitor ins/outs Monitor renal function and electrolytes. Supplement as necessary. DVT prophylaxis. Condition: Critical Prognosis: Poor given multiple comorbidities. Rest of plan per hospitalist and other consultants. Thank you JENNIFER Lou for allowing me to participate in this patient's care. Further recommendations will depend on patient's clinical course. Please do not hesitate to contact me if you have any questions or concerns. This medical document was created using an electronic medical record system with [employer] dictation system. Although this document has been carefully reviewed, there may still be some phonetic and typographical errors. These areas are purely typographical due to imperfections of the software programs, and do not reflect any compromise in the patient's medical care. Plan discussed with: Patient, Other (SHAKIR Monzon, [employer]PER[employer]) ДМИТРИЙ BOSWELL MD January 23, 2025 21:32
[2025-01-23] MEDS: CEFEPIME 1GM/ 50ML 50 ML IV SCH (21:47)
[2025-01-24] VITALS (16 sets, daily range): BP systolic 128–158; BP diastolic 60–74; PULSE 59–92; RESP 16–20; TEMP 97.6–99.2; O2SAT 3–99
[2025-01-24] MEDS: HYDROcodone-ACET 5/325MG TAB PO PRN (05:46)
[2025-01-24 07:36] LABS: Basophils # (auto) 0 10 ^3/uL (0-0.2); Basophils % (auto) 0.4 % (0.0-2.0); Eosinophils # (auto) 0.4 10 ^3/uL (0-0.8); Eosinophils % (auto) 3.4 % (0.0-7.0); Hematocrit 31.8 % (41.0-53.0); Hemoglobin 10.7 g/dL (13.5-17.5); Lymphocytes # (auto) 1.1 10 ^3/uL (0.4-5.4); Lymphocytes % (auto) 10.5 % (10.0-50.0); Mean Corpuscular Hemoglobin 27.6 pg (28.0-32.0); Mean Corpuscular Hgb Conc. 33.5 g/dL (32.0-36.0); Mean Corpuscular Volume 82.2 fL (80.0-100.0); Monocytes # (auto) 1.2 10 ^3/uL (0-1.3); Monocytes % (auto) 11.3 % (0.0-12.0); Neutrophils # (auto) 7.9 10 ^3/uL (1.6-8.6); Neutrophils % (auto) 74.4 % (37.0-80.0); Platelet Count (auto) 352 10^3/uL (140-450); Red Blood Cells 3.87 10^6/uL (4.5-5.90); Red Cell Distribution Width 13.5 % (11.8-14.3); White Blood Cell 10.6 10^3/uL (4.4-10.8)
[2025-01-24] MEDS: FLUCONAZOLE 200MG/100ML 100 ML IV SCH (09:56)
[2025-01-24] MEDS: VANCOMYCIN 1.25GM/250ML 250 ML IV SCH (12:09)
--- NOTE | 2025-01-24 13:54 | DVHPN2 ---
Subjective Patient was reporting severe generalized weakness, cough, sputum production Reviewed: Care Plan, Labs, Medications Changes from previous H/P or p: No Changes General: Per HPI Eyes: No Pain, No Vision change, No Conjunctivae inflammation, No Eyelid inflammation, No Other, No Redness ENT: No Ear pain, No Ear discharge, No Nose pain, No Nose discharge, No Nose congestion, No Mouth pain, No Mouth swelling, No Throat pain, No Throat swelling, No Other Cardiovascular: No Chest Pain, No Palpitations, No Orthopnea, No Paroxysmal Noc. Dyspnea, No Edema, No Lt Headedness, No Other Respiratory: Cough; No Dry; Shortness of breath, SOB with excertion; No Wheezing, No Hemoptysis, No Pleuritic Pain; Sputum; No Other Gastrointestinal: No Nausea, No Vomiting, No Abdominal Pain, No Diarrhea, No Constipation, No Melena, No Hematochezia, No Other Genitourinary: No Dysuria, No Frequency, No Incontinence, No Hematuria, No Retention, No Other Musculoskeletal: No other, No neck pain, No shoulder pain, No arm pain, No back pain, No hand pain, No leg pain, No foot pain Skin: No Rash, No Lesions, No Jaundice, No Bruising, No Other Objective Vitals Vital Signs Date Time Temp Pulse Resp B/P (MAP) Pulse Ox O2 Delivery O2 Flow Rate FiO2 01/24/25 10:58 85 18 99 01/24/25 10:50 Nasal Cannula* 2 28 01/24/25 10:03 128/66 01/24/25 09:22 98.1 98.1 Intake/Output Intake and Output 01/24/25 07:00 Intake Total 1880 ml Balance 1880 ml Intake Oral 1430 ml IV Total 450 ml # Voids 4 # Bowel Movements 1 General Appearance: Alert, Oriented X3, Cooperative, mild distress HEENT: Atraumatic, PERRLA Lungs: Other (Bilateral rhonchi) Cardiovascular: Normal S1, Normal S2 Musculoskeletal: Normal sensory function, Normal motor function Skin: Dry, Intact Psych/Mental Status: Mental status NL, Mood NL Medications Current Medications Medications Dose Ordered Sig/Maria R Route Start Time Stop Time Status Last Admin Dose Admin Acetaminophen/ Hydrocodone Bitart 1 tab Q4HP PRN PO 01/22/25 16:30 01/24/25 05:46 1 TAB Ondansetron HCl 4 mg Q4HP PRN IV 01/22/25 16:30 Docusate Sodium 100 mg BIDPRN PRN PO 01/22/25 16:30 Acetaminophen 650 mg Q6HP PRN PO 01/22/25 16:30 01/24/25 09:54 650 MG Aspirin 81 mg DAILY PO 01/23/25 10:00 01/24/25 09:54 81 MG Carvedilol 3.125 mg Q12HR PO 01/22/25 22:00 01/24/25 09:55 3.125 MG Furosemide 20 mg DAILY PO 01/23/25 10:00 01/24/25 10:03 20 MG Losartan Potassium 50 mg DAILY PO 01/23/25 10:00 01/24/25 09:55 50 MG Memantine 5 mg BID PO 01/22/25 22:00 01/24/25 09:55 5 MG Patient Own Medication 20 mg DAILY PO 01/23/25 10:00 UNV Ticagrelor 90 mg BID PO 01/22/25 22:00 01/24/25 09:55 90 MG Atorvastatin Calcium 20 mg HS PO 01/22/25 22:00 01/23/25 21:48 20 MG Ipratropium [place] 0.5 mg Q6HWA [facility] 01/23/25 06:00 01/24/25 10:50 0.5 MG Albuterol 2.5 mg Q6HWA [facility] 01/23/25 06:00 01/24/25 10:50 2.5 MG Vancomycin HCl 0 ml @ 0 mls/hr UD IV 01/23/25 14:00 Cefepime HCl 50 ml @ 12.5 mls/hr Q8HR IV 01/23/25 22:00 01/24/25 05:42 12.5 MLS/HR Fluconazole 100 ml @ 100 mls/hr 10,11 IV 01/24/25 10:00 01/24/25 12:20 100 MLS/HR Vancomycin HCl 250 ml @ 200 mls/hr Q24H IV 01/24/25 11:00 01/24/25 12:09 200 MLS/HR Laboratory Results Laboratory Tests 01/23/25 06:32 01/24/25 06:17 Urinalysis Test 01/22/25 12:14 Urine Color Colorless (Yellow) Urine Clarity Clear (Clear) Urine pH 5.5 (5.0-9.0) Urine Specific [place] 1.008 (1.001-1.035) Urine Protein Negative (Negative) Urine Ketones Negative (Negative) Urine Blood Negative /uL (Negative) Urine Nitrite Negative (Negative) Urine Bilirubin Negative (Negative) Urine Urobilinogen Normal mg/dL (Negative) Urine Leukocyte Esterase Negative /uL (Negative) Urine RBC None seen /hpf (0 - 3) Urine Microscopic WBC < 1 /HPF (0-3) Urine Squamous Epithelial Cells None seen /hpf (<5) Urine Bacteria None seen /hpf (None Seen) Urine Glucose Normal mg/dL (Normal) Labs and/or images reviewed: Labs reviewed by me, Image(s) reviewed by me Assessment/Plan Assessment/Plan Impression: -acute hypoxic respiratory failure -bilateral pneumonia -decompensated heart failure ruled out -coronary artery disease with previous stent placement -primary hypertension -dyslipidemia -history of CVA Plan: Events: Patient reports that he is feeling better. O2 supplementation at 2 L/min. No other events overnight. -continue dual antiplatelet therapy -continue cefepime and vancomycin. Diflucan added per pulmonology -pulmonary consultation: Recommendations reviewed -bronchodilators, add Mucomyst -repeat labs and chest x-ray in a.m. Total time spent with patient discussing and formulating plan of care: 35 minutes. This medical document was created using an electronic medical record system with [employer] dictation system. Although this document has been carefully reviewed, there may still be some phonetic and typographical errors. These areas are purely typographical due to imperfections of the software programs, and do not reflect any compromise in the patient's medical care. Plan discussed with: Patient, Other (RN) My Orders Orders - PREMA QUACH [employer] Procedure Category Date Status Time Vancomycin Per PHA 01/23/25 In Process Pharmacy 14:00 Cefepime 1gm/ 50ml PHA 01/23/25 In Process (Maxipime 1gm/50ml) 22:00 *Consult CONS 01/23/25 Transmitted / 16:30 Vancomycin Per RUTHANN 01/27/25 In Process Pharmacy Protoc 10:00 Complete Blood Count LAB 01/25/25 Verified 04:00 Creatinine LAB 01/25/25 Verified 04:00 Vancomycin,Trough LAB 01/27/25 Verified 10:00 Vancomycin PHA 01/24/25 In Process 1.25gm/250ml 11:00 Basic Metabolic Panel LAB 01/25/25 Verified 04:00 Date of Service: January 24, 2025 Billing Provider: PREMA QUACH NP Common Visit Codes: [id number] INP/OBS CARE(HIGH) PREMA QUACH NP January 24, 2025 13:54
--- NOTE | 2025-01-24 22:16 | DVHPN2 ---
Progress Note - Dictate Date Seen: January 24, 2025 Medical Necessity Reason Pt with a Central, PICC or Fol: No Subjective Patient seen and examined at bedside. Remains on supplemental oxygen Overnight events reviewed. vital signs Vital Sign Date Time Temp Pulse Resp B/P (MAP) Pulse Ox O2 Delivery O2 Flow Rate FiO2 01/24/25 21:21 87 148/70 01/24/25 21:00 99.1 16 95 99.1 01/24/25 19:32 Nasal Cannula 2.0 01/24/25 19:32 28 Total Intake and Output 01/23/25 01/23/25 01/24/25 15:00 23:00 07:00 Intake Total 280 ml 1300 ml 300 ml Balance 280 ml 1300 ml 300 ml medications Current Medications Medications Dose Ordered Sig/Maria R Route Start Time Stop Time Status Last Admin Dose Admin Acetaminophen/ Hydrocodone Bitart 1 tab Q4HP PRN PO 01/22/25 16:30 01/24/25 05:46 1 TAB Ondansetron HCl 4 mg Q4HP PRN IV 01/22/25 16:30 Docusate Sodium 100 mg BIDPRN PRN PO 01/22/25 16:30 Acetaminophen 650 mg Q6HP PRN PO 01/22/25 16:30 01/24/25 09:54 650 MG Aspirin 81 mg DAILY PO 01/23/25 10:00 01/24/25 09:54 81 MG Carvedilol 3.125 mg Q12HR PO 01/22/25 22:00 01/24/25 21:21 3.125 MG Furosemide 20 mg DAILY PO 01/23/25 10:00 01/24/25 10:03 20 MG Losartan Potassium 50 mg DAILY PO 01/23/25 10:00 01/24/25 09:55 50 MG Memantine 5 mg BID PO 01/22/25 22:00 01/24/25 21:20 5 MG Patient Own Medication 20 mg DAILY PO 01/23/25 10:00 UNV Ticagrelor 90 mg BID PO 01/22/25 22:00 01/24/25 21:20 90 MG Atorvastatin Calcium 20 mg HS PO 01/22/25 22:00 01/24/25 21:22 20 MG Ipratropium [place] 0.5 mg Q6HWA NEB 01/23/25 06:00 01/24/25 19:35 0.5 MG Albuterol 2.5 mg Q6HWA NEB 01/23/25 06:00 01/24/25 19:35 2.5 MG Vancomycin HCl 0 ml @ 0 mls/hr UD IV 01/23/25 14:00 Cefepime HCl 50 ml @ 12.5 mls/hr Q8HR IV 01/23/25 22:00 01/24/25 21:20 12.5 MLS/HR Fluconazole 100 ml @ 100 mls/hr 10,11 IV 01/24/25 10:00 01/24/25 12:20 100 MLS/HR Vancomycin HCl 250 ml @ 200 mls/hr Q24H IV 01/24/25 11:00 01/24/25 12:09 200 MLS/HR objective Gen.: Patient lying in bed in no apparent distress. On supplemental oxygen. Head: Normocephalic, atraumatic. Eyes: EOMI/PERRLA. Ears: Normal hearing. Normal anatomy. Neck/trachea: Trachea midline, supple. Nose: Normal external anatomy. Mouth: Moist mucous membranes. Chest: Decreased air entry bilaterally. No wheezing or rhonchi. Cardiovascular: Positive S1, positive S2. Regular rate and rhythm. Abdomen: Positive bowel sounds in all 4 quadrants. Soft, non-tender, non- distended. : Deferred. Rectal: Deferred. Skin: Warm, dry. Intact. Extremities: 2+ radial pulses bilaterally. No lower extremity edema. Neuro: Awake, alert, oriented x3. No gross motor or sensory deficits. Cranial nerves II through XII intact. Gait not assessed. laboratory and microbiology Laboratory Tests 01/24/25 06:17 01/23/25 06:32 Test 01/23/25 06:32 Range/Units Serum Glucose 103 74-106 mg/dL Assessment/Plan Impression: Acute hypoxic respiratory failure Granulomatous disease Lymphadenopathy Pleural effusions, small bilateral Ground-glass opacities on imaging Atelectasis History of rib fractures KARL pulmonary nodule, 11 mm Events: Remains on supplemental oxygen, 3 LPM NC Taper O2 as tolerated O2 sat 94% Patient c/o cough. Continue bronchodilators Continue steroids Continue antibiotics/antifungals Incentive spirometry Continue diuretics Monitor renal function Monitor electrolytes. Supplement as necessary. Monitor ins and outs. PT evaluation. KARL pulmonary nodule 11 mm: Recommend to complete abx and repeat CT chest in 4-8 weeks to document resolution of opacity. Labs and imaging reviewed. Rest of plan as noted below. Plan: CT chest report reviewed. Hepatic calcifications, granulomatous disease. Coronary artery disease. Subcarinal lymph nodes measuring 15 mm. Small bilateral pleural effusions. Diffuse bilateral pulmonary airspace opacities. Ground-glass opacities bilaterally. Tree-in-bud nodularities. Prior rib fractures. Obtain chest ultrasound to evaluate if pleural effusions amenable for thoracentesis. COVID negative. Influenza negative. Supplemental oxygen Keep o2 saturation above 92% Continue antibiotics Obtain sputum culture Diflucan for 10 days due to tree in bud opacities. Continue bronchodilators continue mucolytics. Diurese with Lasix Monitor ins/outs Monitor renal function and electrolytes. Supplement as necessary. DVT prophylaxis. Prognosis: Poor given multiple comorbidities. Rest of plan per hospitalist and other consultants. Thank you JENNIFER Lou for allowing me to participate in this patient's care. Further recommendations will depend on patient's clinical course. Please do not hesitate to contact me if you have any questions or concerns. This medical document was created using an electronic medical record system with [employer] dictation system. Although this document has been carefully reviewed, there may still be some phonetic and typographical errors. These areas are purely typographical due to imperfections of the software programs, and do not reflect any compromise in the patient's medical care. Plan discussed with: Patient, Other (SHAKIR Song) ДМИТРИЙ BOSWELL MD January 24, 2025 22:16
[2025-01-25] VITALS (15 sets, daily range): BP systolic 109–147; BP diastolic 56–66; PULSE 62–91; RESP 17–18; TEMP 98–98.4; O2SAT 69–100
[2025-01-25 06:48] LABS: Basophils # (auto) 0 10 ^3/uL (0-0.2); Basophils % (auto) 0.4 % (0.0-2.0); Eosinophils # (auto) 0.4 10 ^3/uL (0-0.8); Hematocrit 30.4 % (41.0-53.0); Hemoglobin 10.4 g/dL (13.5-17.5); Lymphocytes # (auto) 1.1 10 ^3/uL (0.4-5.4); Lymphocytes % (auto) 10.8 % (10.0-50.0); Mean Corpuscular Hemoglobin 27.9 pg (28.0-32.0); Mean Corpuscular Hgb Conc. 34.2 g/dL (32.0-36.0); Mean Corpuscular Volume 81.4 fL (80.0-100.0); Monocytes # (auto) 1.2 10 ^3/uL (0-1.3); Monocytes % (auto) 11.7 % (0.0-12.0); Neutrophils # (auto) 7.4 10 ^3/uL (1.6-8.6); Neutrophils % (auto) 73.1 % (37.0-80.0); Platelet Count (auto) 368 10^3/uL (140-450); Red Blood Cells 3.73 10^6/uL (4.5-5.90); Red Cell Distribution Width 13.4 % (11.8-14.3); White Blood Cell 10.1 10^3/uL (4.4-10.8)
[2025-01-25 07:06] LABS: Potassium 4.2 mmol/L (3.5-5.1)
[2025-01-25 07:07] LABS: Anion Gap 10 (5-15); Calcium 9.2 mg/dL (8.7-10.4); Carbon Dioxide 23 mmol/L (20-31)
[2025-01-25 07:10] LABS: Chloride 97 mmol/L (98-107); Sodium 130 mmol/L (136-145)
[2025-01-25 07:12] LABS: BUN/Creatinine Ratio 18.2 (10.0-20.0); Blood Urea Nitrogen 16 mg/dL (9-23)
[2025-01-25 07:15] LABS: Glucose 108 mg/dL (74-106)
--- NOTE | 2025-01-25 09:58 | DVH ---
EXAM: XY CHEST XRAY 1 VIEW Indication: Pain; pna Technique: Single frontal view of the chest was obtained Comparison: XY CHEST PORTABLE on DOS: 01/22/25, XY CHEST XRAY 1 VIEW on DOS: 07/28/24, XY CHEST PORTAB LE on DOS: 07/27/24, CHEST PORTABLE on DOS: 01/22/22, CXRP on DOS: 01/22/22 FINDINGS: Lines and Tubes: None Lungs: Multifocal consolidative opacities. Pleura: No effusion. No pneumothorax. Cardiomediastinal contours: Unremarkable Bones: No acute osseous abnormality. IMPRESSION: Multifocal pneumonia.
--- NOTE | 2025-01-25 13:33 | DVHPN2 ---
Subjective Patient was reporting severe generalized weakness, cough, sputum production Reviewed: Care Plan, Labs, Medications Changes from previous H/P or p: No Changes General: Per HPI Eyes: No Pain, No Vision change, No Conjunctivae inflammation, No Eyelid inflammation, No Other, No Redness ENT: No Ear pain, No Ear discharge, No Nose pain, No Nose discharge, No Nose congestion, No Mouth pain, No Mouth swelling, No Throat pain, No Throat swelling, No Other Cardiovascular: No Chest Pain, No Palpitations, No Orthopnea, No Paroxysmal Noc. Dyspnea, No Edema, No Lt Headedness, No Other Respiratory: Cough; No Dry; Shortness of breath, SOB with excertion; No Wheezing, No Hemoptysis, No Pleuritic Pain; Sputum; No Other Gastrointestinal: No Nausea, No Vomiting, No Abdominal Pain, No Diarrhea, No Constipation, No Melena, No Hematochezia, No Other Genitourinary: No Dysuria, No Frequency, No Incontinence, No Hematuria, No Retention, No Other Musculoskeletal: No other, No neck pain, No shoulder pain, No arm pain, No back pain, No hand pain, No leg pain, No foot pain Skin: No Rash, No Lesions, No Jaundice, No Bruising, No Other Objective Vitals Vital Signs Date Time Temp Pulse Resp B/P (MAP) Pulse Ox O2 Delivery O2 Flow Rate FiO2 01/25/25 11:42 82 18 97 01/25/25 10:11 136/62 01/25/25 09:30 Nasal Cannula* 3 32 01/25/25 09:00 98.2 98.2 Intake/Output Intake and Output 01/25/25 07:00 Intake Total 1800 ml Output Total 500 ml Balance 1300 ml Intake Oral 1350 ml IV Total 450 ml Output Urine Total 500 ml # Voids 4 General Appearance: Alert, Oriented X3, Cooperative, mild distress HEENT: Atraumatic, PERRLA Lungs: Other (Bilateral rhonchi) Cardiovascular: Normal S1, Normal S2 Musculoskeletal: Normal sensory function, Normal motor function Skin: Dry, Intact Psych/Mental Status: Mental status NL, Mood NL Medications Current Medications Medications Dose Ordered Sig/Maria R Route Start Time Stop Time Status Last Admin Dose Admin Acetaminophen/ Hydrocodone Bitart 1 tab Q4HP PRN PO 01/22/25 16:30 01/24/25 05:46 1 TAB Ondansetron HCl 4 mg Q4HP PRN IV 01/22/25 16:30 Docusate Sodium 100 mg BIDPRN PRN PO 01/22/25 16:30 Acetaminophen 650 mg Q6HP PRN PO 01/22/25 16:30 01/24/25 09:54 650 MG Aspirin 81 mg DAILY PO 01/23/25 10:00 01/25/25 10:10 81 MG Carvedilol 3.125 mg Q12HR PO 01/22/25 22:00 01/25/25 10:11 3.125 MG Furosemide 20 mg DAILY PO 01/23/25 10:00 01/25/25 10:11 20 MG Losartan Potassium 50 mg DAILY PO 01/23/25 10:00 01/25/25 10:11 50 MG Memantine 5 mg BID PO 01/22/25 22:00 01/25/25 10:10 5 MG Patient Own Medication 20 mg DAILY PO 01/23/25 10:00 UNV Ticagrelor 90 mg BID PO 01/22/25 22:00 01/25/25 10:10 90 MG Atorvastatin Calcium 20 mg HS PO 01/22/25 22:00 01/24/25 21:22 20 MG Ipratropium [place] 0.5 mg Q6HWA [facility] 01/23/25 06:00 01/25/25 11:42 0.5 MG Albuterol 2.5 mg Q6HWA [facility] 01/23/25 06:00 01/25/25 11:42 2.5 MG Vancomycin HCl 0 ml @ 0 mls/hr UD IV 01/23/25 14:00 Cefepime HCl 50 ml @ 12.5 mls/hr Q8HR IV 01/23/25 22:00 01/25/25 05:51 12.5 MLS/HR Fluconazole 100 ml @ 100 mls/hr 10,11 IV 01/24/25 10:00 01/25/25 11:56 100 MLS/HR Vancomycin HCl 250 ml @ 200 mls/hr Q24H IV 01/24/25 11:00 01/25/25 12:02 200 MLS/HR Laboratory Results Laboratory Tests 01/25/25 06:19 Chemistry Test 01/25/25 06:19 Calcium Level 9.2 mg/dL (8.7-10.4) Urinalysis Test 01/22/25 12:14 Urine Color Colorless (Yellow) Urine Clarity Clear (Clear) Urine pH 5.5 (5.0-9.0) Urine Specific [place] 1.008 (1.001-1.035) Urine Protein Negative (Negative) Urine Ketones Negative (Negative) Urine Blood Negative /uL (Negative) Urine Nitrite Negative (Negative) Urine Bilirubin Negative (Negative) Urine Urobilinogen Normal mg/dL (Negative) Urine Leukocyte Esterase Negative /uL (Negative) Urine RBC None seen /hpf (0 - 3) Urine Microscopic WBC < 1 /HPF (0-3) Urine Squamous Epithelial Cells None seen /hpf (<5) Urine Bacteria None seen /hpf (None Seen) Urine Glucose Normal mg/dL (Normal) Labs and/or images reviewed: Labs reviewed by me, Image(s) reviewed by me Assessment/Plan Assessment/Plan Impression: -acute hypoxic respiratory failure -bilateral pneumonia -decompensated heart failure ruled out -coronary artery disease with previous stent placement -primary hypertension -dyslipidemia -history of CVA Plan: Events: No Events overnight. Continues to be on nasal cannula at 3 L/min. Clinically states he is feeling better. -continue dual antiplatelet therapy -continue cefepime and vancomycin. Diflucan added per pulmonology -pulmonary consultation: Recommendations reviewed -bronchodilators, add Mucomyst -repeat labs and chest x-ray in a.m. Total time spent with patient discussing and formulating plan of care: 35 minutes. This medical document was created using an electronic medical record system with [employer] dictation system. Although this document has been carefully reviewed, there may still be some phonetic and typographical errors. These areas are purely typographical due to imperfections of the software programs, and do not reflect any compromise in the patient's medical care. Plan discussed with: Patient, Other (RN) My Orders Orders - PREMA QUACH NP Procedure Category Date Status Time Chest Xray 1 View XY 01/25/25 Resulted 08:22 Date of Service: January 25, 2025 Billing Provider: PREMA QUACH NP Common Visit Codes: [id number] INP/OBS CARE(HIGH) PREMA QUACH NP January 25, 2025 13:33
[2025-01-25] MEDS: CEFEPIME 1GM/ 50ML 50 ML IV SCH (21:44)
--- NOTE | 2025-01-25 22:33 | DVHPN2 ---
Progress Note - Dictate Date Seen: January 25, 2025 Medical Necessity Reason Pt with a Central, PICC or Fol: No Subjective Patient seen and examined at bedside. Remains on supplemental oxygen Overnight events reviewed. vital signs Vital Sign Date Time Temp Pulse Resp B/P (MAP) Pulse Ox O2 Delivery O2 Flow Rate FiO2 01/25/25 21:45 86 139/65 01/25/25 21:00 98.1 18 97 98.1 01/25/25 19:51 3.0 36 01/25/25 09:30 Nasal Cannula* Total Intake and Output 01/24/25 01/24/25 01/25/25 15:00 23:00 07:00 Intake Total 350 ml 850 ml 600 ml Output Total 500 ml Balance 350 ml 850 ml 100 ml medications Current Medications Medications Dose Ordered Sig/Maria R Route Start Time Stop Time Status Last Admin Dose Admin Acetaminophen/ Hydrocodone Bitart 1 tab Q4HP PRN PO 01/22/25 16:30 01/24/25 05:46 1 TAB Ondansetron HCl 4 mg Q4HP PRN IV 01/22/25 16:30 Docusate Sodium 100 mg BIDPRN PRN PO 01/22/25 16:30 Acetaminophen 650 mg Q6HP PRN PO 01/22/25 16:30 01/24/25 09:54 650 MG Aspirin 81 mg DAILY PO 01/23/25 10:00 01/25/25 10:10 81 MG Carvedilol 3.125 mg Q12HR PO 01/22/25 22:00 01/25/25 21:45 3.125 MG Furosemide 20 mg DAILY PO 01/23/25 10:00 01/25/25 10:11 20 MG Losartan Potassium 50 mg DAILY PO 01/23/25 10:00 01/25/25 10:11 50 MG Memantine 5 mg BID PO 01/22/25 22:00 01/25/25 21:45 5 MG Patient Own Medication 20 mg DAILY PO 01/23/25 10:00 UNV Ticagrelor 90 mg BID PO 01/22/25 22:00 01/25/25 21:45 90 MG Atorvastatin Calcium 20 mg HS PO 01/22/25 22:00 01/25/25 21:45 20 MG Ipratropium [place] 0.5 mg Q6HWA NEB 01/23/25 06:00 01/25/25 20:05 0.5 MG Albuterol 2.5 mg Q6HWA NEB 01/23/25 06:00 01/25/25 20:05 2.5 MG Vancomycin HCl 0 ml @ 0 mls/hr UD IV 01/23/25 14:00 Fluconazole 100 ml @ 100 mls/hr 10,11 IV 01/24/25 10:00 01/25/25 11:56 100 MLS/HR Vancomycin HCl 250 ml @ 200 mls/hr Q24H IV 01/24/25 11:00 01/25/25 12:02 200 MLS/HR Cefepime HCl 50 ml @ 12.5 mls/hr Q8HR IV 01/25/25 22:00 01/25/25 21:44 12.5 MLS/HR objective Gen.: Patient lying in bed in no apparent distress. On supplemental oxygen. Head: Normocephalic, atraumatic. Eyes: EOMI/PERRLA. Ears: Normal hearing. Normal anatomy. Neck/trachea: Trachea midline, supple. Nose: Normal external anatomy. Mouth: Moist mucous membranes. Chest: Decreased air entry bilaterally. No wheezing or rhonchi. Cardiovascular: Positive S1, positive S2. Regular rate and rhythm. Abdomen: Positive bowel sounds in all 4 quadrants. Soft, non-tender, non- distended. : Deferred. Rectal: Deferred. Skin: Warm, dry. Intact. Extremities: 2+ radial pulses bilaterally. No lower extremity edema. Neuro: Awake, alert, oriented x3. No gross motor or sensory deficits. Cranial nerves II through XII intact. Gait not assessed. laboratory and microbiology Laboratory Tests 01/25/25 06:19 Test 01/25/25 06:19 Range/Units Serum Glucose 108 H 74-106 mg/dL Assessment/Plan Impression: Acute hypoxic respiratory failure Granulomatous disease Lymphadenopathy Pleural effusions, small bilateral Ground-glass opacities on imaging Atelectasis History of rib fractures KARL pulmonary nodule, 11 mm Events: Remains on supplemental oxygen, 2 LPM NC Taper O2 as tolerated Improving O2 requirements Note, patient pulled out IV. CXR reviewed, findings c/w multifocal pneumonia. Patient with cough Continue bronchodilators Continue antibiotics/antifungals Incentive spirometry Continue Lasix to maintain euvolemia Monitor renal function Monitor electrolytes. Supplement as necessary. Monitor ins and outs. PT evaluation. KARL pulmonary nodule 11 mm: Recommend to complete abx and repeat CT chest in 4-8 weeks to document resolution of opacity. Labs and imaging reviewed. Rest of plan as noted below. Plan: CT chest report reviewed. Hepatic calcifications, granulomatous disease. Coronary artery disease. Subcarinal lymph nodes measuring 15 mm. Small bilateral pleural effusions. Diffuse bilateral pulmonary airspace opacities. Ground-glass opacities bilaterally. Tree-in-bud nodularities. Prior rib fractures. Obtain chest ultrasound to evaluate if pleural effusions amenable for thoracentesis. COVID negative. Influenza negative. Supplemental oxygen Keep o2 saturation above 92% Continue antibiotics Obtain sputum culture Diflucan for 10 days due to tree in bud opacities. Continue bronchodilators continue mucolytics. Diurese with Lasix Monitor ins/outs Monitor renal function and electrolytes. Supplement as necessary. DVT prophylaxis. Prognosis: Poor given multiple comorbidities. Rest of plan per hospitalist and other consultants. Thank you JENNIFER Lou for allowing me to participate in this patient's care. Further recommendations will depend on patient's clinical course. Please do not hesitate to contact me if you have any questions or concerns. This medical document was created using an electronic medical record system with [employer] dictation system. Although this document has been carefully reviewed, there may still be some phonetic and typographical errors. These areas are purely typographical due to imperfections of the software programs, and do not reflect any compromise in the patient's medical care. Plan discussed with: Patient, Other (SHAKIR Song) ДМИТРИЙ BOSWELL MD January 25, 2025 22:33
[2025-01-26] VITALS (13 sets, daily range): BP systolic 116–171; BP diastolic 46–71; PULSE 77–92; RESP 17–26; TEMP 98–98.5; O2SAT 90–100
[2025-01-26 07:11] LABS: Albumin 3.8 g/dL (3.2-4.8); Anion Gap 9 (5-15); BUN/Creatinine Ratio 19.8 (10.0-20.0); Blood Urea Nitrogen 16 mg/dL (9-23); Calcium 9.2 mg/dL (8.7-10.4); Carbon Dioxide 24 mmol/L (20-31); Glucose 99 mg/dL (74-106); Potassium 3.9 mmol/L (3.5-5.1); Total Protein 6.4 g/dL (5.7-8.2)
[2025-01-26 07:12] LABS: Aspartate Aminotransferase 38 U/L (13-40); Bilirubin, Total 0.7 mg/dL (0.2-1.0)
[2025-01-26 07:15] LABS: Alanine Aminotransferase 93 U/L (7-40); Alkaline Phosphatase 160 U/L (46-116); Chloride 94 mmol/L (98-107); Sodium 127 mmol/L (136-145)
[2025-01-26 07:19] LABS: Basophils # (auto) 0 10 ^3/uL (0-0.2); Basophils % (auto) 0.3 % (0.0-2.0); Eosinophils # (auto) 0.4 10 ^3/uL (0-0.8); Eosinophils % (auto) 3.5 % (0.0-7.0); Hematocrit 30.1 % (41.0-53.0); Hemoglobin 10.3 g/dL (13.5-17.5); Lymphocytes # (auto) 1.2 10 ^3/uL (0.4-5.4); Lymphocytes % (auto) 10.8 % (10.0-50.0); Mean Corpuscular Hemoglobin 27.8 pg (28.0-32.0); Mean Corpuscular Hgb Conc. 34.4 g/dL (32.0-36.0); Mean Corpuscular Volume 80.8 fL (80.0-100.0); Monocytes # (auto) 1.2 10 ^3/uL (0-1.3); Monocytes % (auto) 10.9 % (0.0-12.0); Neutrophils # (auto) 8.1 10 ^3/uL (1.6-8.6); Neutrophils % (auto) 74.5 % (37.0-80.0); Platelet Count (auto) 377 10^3/uL (140-450); Red Blood Cells 3.73 10^6/uL (4.5-5.90); Red Cell Distribution Width 13.5 % (11.8-14.3); White Blood Cell 10.9 10^3/uL (4.4-10.8)
--- NOTE | 2025-01-26 13:39 | DVHPN2 ---
Subjective Patient continues to have subjective dyspnea with ambulation. Reviewed: Care Plan, Labs, Medications Changes from previous H/P or p: No Changes General: Per HPI Eyes: No Pain, No Vision change, No Conjunctivae inflammation, No Eyelid inflammation, No Other, No Redness ENT: No Ear pain, No Ear discharge, No Nose pain, No Nose discharge, No Nose congestion, No Mouth pain, No Mouth swelling, No Throat pain, No Throat swelling, No Other Cardiovascular: No Chest Pain, No Palpitations, No Orthopnea, No Paroxysmal Noc. Dyspnea, No Edema, No Lt Headedness, No Other Respiratory: Cough; No Dry; Shortness of breath, SOB with excertion; No Wheezing, No Hemoptysis, No Pleuritic Pain; Sputum; No Other Gastrointestinal: No Nausea, No Vomiting, No Abdominal Pain, No Diarrhea, No Constipation, No Melena, No Hematochezia, No Other Genitourinary: No Dysuria, No Frequency, No Incontinence, No Hematuria, No Retention, No Other Musculoskeletal: No other, No neck pain, No shoulder pain, No arm pain, No back pain, No hand pain, No leg pain, No foot pain Skin: No Rash, No Lesions, No Jaundice, No Bruising, No Other Objective Vitals Vital Signs Date Time Temp Pulse Resp B/P (MAP) Pulse Ox O2 Delivery O2 Flow Rate FiO2 01/26/25 11:16 84 26 100 01/26/25 11:10 Nasal Cannula 2.0 01/26/25 11:10 28 01/26/25 09:50 131/56 01/26/25 05:00 98.1 98.1 Intake/Output Intake and Output 01/26/25 07:00 Intake Total 1850 ml Output Total 1800 ml Balance 50 ml Intake Oral 1800 ml IV Total 50 ml Output Urine Total 1800 ml General Appearance: Alert, Oriented X3, Cooperative, mild distress HEENT: Atraumatic, PERRLA Lungs: Other (Bilateral rhonchi) Cardiovascular: Normal S1, Normal S2 Musculoskeletal: Normal sensory function, Normal motor function Skin: Dry, Intact Psych/Mental Status: Mental status NL, Mood NL Medications Current Medications Medications Dose Ordered Sig/Maria R Route Start Time Stop Time Status Last Admin Dose Admin Acetaminophen/ Hydrocodone Bitart 1 tab Q4HP PRN PO 01/22/25 16:30 01/24/25 05:46 1 TAB Ondansetron HCl 4 mg Q4HP PRN IV 01/22/25 16:30 Docusate Sodium 100 mg BIDPRN PRN PO 01/22/25 16:30 Acetaminophen 650 mg Q6HP PRN PO 01/22/25 16:30 01/24/25 09:54 650 MG Aspirin 81 mg DAILY PO 01/23/25 10:00 01/26/25 09:49 81 MG Carvedilol 3.125 mg Q12HR PO 01/22/25 22:00 01/26/25 09:50 3.125 MG Furosemide 20 mg DAILY PO 01/23/25 10:00 01/26/25 09:50 20 MG Losartan Potassium 50 mg DAILY PO 01/23/25 10:00 01/26/25 09:49 50 MG Memantine 5 mg BID PO 01/22/25 22:00 01/26/25 09:50 5 MG Patient Own Medication 20 mg DAILY PO 01/23/25 10:00 UNV Ticagrelor 90 mg BID PO 01/22/25 22:00 01/26/25 09:50 90 MG Atorvastatin Calcium 20 mg HS PO 01/22/25 22:00 01/25/25 21:45 20 MG Ipratropium [place] 0.5 mg Q6HWA [facility] 01/23/25 06:00 01/26/25 11:10 0.5 MG Albuterol 2.5 mg Q6HWA [facility] 01/23/25 06:00 01/26/25 11:10 2.5 MG Vancomycin HCl 0 ml @ 0 mls/hr UD IV 01/23/25 14:00 Fluconazole 100 ml @ 100 mls/hr 10,11 IV 01/24/25 10:00 01/26/25 10:56 100 MLS/HR Vancomycin HCl 250 ml @ 200 mls/hr Q24H IV 01/24/25 11:00 01/26/25 10:57 200 MLS/HR Cefepime HCl 50 ml @ 12.5 mls/hr Q8HR IV 01/25/25 22:00 01/26/25 05:28 12.5 MLS/HR Laboratory Results Laboratory Tests 01/26/25 06:19 Chemistry Test 01/26/25 06:19 Albumin 3.8 g/dL (3.2-4.8) Calcium Level 9.2 mg/dL (8.7-10.4) Total Protein 6.4 g/dL (5.7-8.2) LFT Test 01/26/25 06:19 Alanine Aminotransferase (ALT) 93 U/L (7-40) H Alkaline Phosphatase 160 U/L (46-116) H Aspartate Amino Transferase (AST) 38 U/L (13-40) Total Bilirubin 0.7 mg/dL (0.2-1.0) Urinalysis Test 01/22/25 12:14 Urine Color Colorless (Yellow) Urine Clarity Clear (Clear) Urine pH 5.5 (5.0-9.0) Urine Specific [place] 1.008 (1.001-1.035) Urine Protein Negative (Negative) Urine Ketones Negative (Negative) Urine Blood Negative /uL (Negative) Urine Nitrite Negative (Negative) Urine Bilirubin Negative (Negative) Urine Urobilinogen Normal mg/dL (Negative) Urine Leukocyte Esterase Negative /uL (Negative) Urine RBC None seen /hpf (0 - 3) Urine Microscopic WBC < 1 /HPF (0-3) Urine Squamous Epithelial Cells None seen /hpf (<5) Urine Bacteria None seen /hpf (None Seen) Urine Glucose Normal mg/dL (Normal) Labs and/or images reviewed: Labs reviewed by me, Image(s) reviewed by me Assessment/Plan Assessment/Plan Impression: -acute hypoxic respiratory failure -bilateral pneumonia -decompensated heart failure ruled out -coronary artery disease with previous stent placement -primary hypertension -dyslipidemia -history of CVA Plan: Events: No Events overnight. Nasal cannula at 2 L/min. Noted severe dyspnea with ambulation to the bathroom this a.m.. -continue dual antiplatelet therapy -continue cefepime and vancomycin. Diflucan added per pulmonology -pulmonary consultation: Recommendations reviewed -bronchodilators, add Mucomyst -repeat labs and chest x-ray in a.m. Total time spent with patient discussing and formulating plan of care: 35 minutes. This medical document was created using an electronic medical record system with [employer] system. Although this document has been carefully reviewed, there may still be some phonetic and typographical errors. These areas are purely typographical due to imperfections of the software programs, and do not reflect any compromise in the patient's medical care. Plan discussed with: Patient, Other (RN) My Orders Orders - PREMA QUACH NP Procedure Category Date Status Time Cefepime 1gm/ 50ml PHA 01/25/25 In Process (Maxipime 1gm/50ml) 22:00 Basic Metabolic Panel LAB 01/27/25 Verified 04:00 Complete Blood Count LAB 01/27/25 Verified 04:00 Chest Portable XY 01/27/25 Verified 04:00 Date of Service: January 26, 2025 Billing Provider: PREMA QUACH NP Common Visit Codes: [id number] INP/OBS CARE(MOD) PREMA QUACH NP January 26, 2025 13:39
--- NOTE | 2025-01-26 22:20 | DVHPN2 ---
Progress Note - Dictate Date Seen: January 26, 2025 Medical Necessity Reason Pt with a Central, PICC or Fol: No Subjective Patient seen and examined at bedside. Remains on supplemental oxygen Overnight events reviewed. vital signs Vital Sign Date Time Temp Pulse Resp B/P (MAP) Pulse Ox O2 Delivery O2 Flow Rate FiO2 01/26/25 21:00 98.2 82 18 171/71 (104) 94 98.2 01/26/25 19:55 Nasal Cannula 2.0 01/26/25 19:55 28 Total Intake and Output 01/25/25 01/25/25 01/26/25 15:00 23:00 07:00 Intake Total 800 ml 1050 ml Output Total 1000 ml 800 ml Balance -200 ml 250 ml medications Current Medications Medications Dose Ordered Sig/Maria R Route Start Time Stop Time Status Last Admin Dose Admin Acetaminophen/ Hydrocodone Bitart 1 tab Q4HP PRN PO 01/22/25 16:30 01/24/25 05:46 1 TAB Ondansetron HCl 4 mg Q4HP PRN IV 01/22/25 16:30 Docusate Sodium 100 mg BIDPRN PRN PO 01/22/25 16:30 Acetaminophen 650 mg Q6HP PRN PO 01/22/25 16:30 01/24/25 09:54 650 MG Aspirin 81 mg DAILY PO 01/23/25 10:00 01/26/25 09:49 81 MG Carvedilol 3.125 mg Q12HR PO 01/22/25 22:00 01/26/25 09:50 3.125 MG Furosemide 20 mg DAILY PO 01/23/25 10:00 01/26/25 09:50 20 MG Losartan Potassium 50 mg DAILY PO 01/23/25 10:00 01/26/25 09:49 50 MG Memantine 5 mg BID PO 01/22/25 22:00 01/26/25 09:50 5 MG Patient Own Medication 20 mg DAILY PO 01/23/25 10:00 UNV Ticagrelor 90 mg BID PO 01/22/25 22:00 01/26/25 09:50 90 MG Atorvastatin Calcium 20 mg HS PO 01/22/25 22:00 01/25/25 21:45 20 MG Ipratropium [place] 0.5 mg Q6HWA NEB 01/23/25 06:00 01/26/25 19:55 0.5 MG Albuterol 2.5 mg Q6HWA NEB 01/23/25 06:00 01/26/25 19:55 2.5 MG Vancomycin HCl 0 ml @ 0 mls/hr UD IV 01/23/25 14:00 Fluconazole 100 ml @ 100 mls/hr 10,11 IV 01/24/25 10:00 01/26/25 10:56 100 MLS/HR Vancomycin HCl 250 ml @ 200 mls/hr Q24H IV 01/24/25 11:00 01/26/25 10:57 200 MLS/HR Cefepime HCl 50 ml @ 12.5 mls/hr Q8HR IV 01/25/25 22:00 01/26/25 15:01 12.5 MLS/HR objective Gen.: Patient lying in bed in no apparent distress. On supplemental oxygen. Head: Normocephalic, atraumatic. Eyes: EOMI/PERRLA. Ears: Normal hearing. Normal anatomy. Neck/trachea: Trachea midline, supple. Nose: Normal external anatomy. Mouth: Moist mucous membranes. Chest: Decreased air entry bilaterally. No wheezing or rhonchi. Cardiovascular: Positive S1, positive S2. Regular rate and rhythm. Abdomen: Positive bowel sounds in all 4 quadrants. Soft, non-tender, non- distended. : Deferred. Rectal: Deferred. Skin: Warm, dry. Intact. Extremities: 2+ radial pulses bilaterally. No lower extremity edema. Neuro: Awake, alert, oriented x3. No gross motor or sensory deficits. Cranial nerves II through XII intact. Gait not assessed. laboratory and microbiology Laboratory Tests 01/26/25 06:19 Test 01/26/25 06:19 Range/Units Serum Glucose 99 74-106 mg/dL Assessment/Plan Impression: Acute hypoxic respiratory failure Granulomatous disease Lymphadenopathy Pleural effusions, small bilateral Ground-glass opacities on imaging Atelectasis History of rib fractures KARL pulmonary nodule, 11 mm Events: Remains on supplemental oxygen, 2 LPM NC Taper O2 as tolerated Assess for home O2 requirements CXR on 01/25 revealed findings c/w multifocal pneumonia. Patient with cough Continue bronchodilators Continue antibiotics/antifungals Incentive spirometry Continue Lasix PO to maintain euvolemia Monitor renal function Monitor electrolytes. Supplement as necessary. Monitor ins and outs. PT. Disposition per hospitalist. KARL pulmonary nodule 11 mm: Recommend to complete abx and repeat CT chest in 4-8 weeks to document resolution of opacity. Labs and imaging reviewed. Rest of plan as noted below. Plan: CT chest report reviewed. Hepatic calcifications, granulomatous disease. Coronary artery disease. Subcarinal lymph nodes measuring 15 mm. Small bilateral pleural effusions. Diffuse bilateral pulmonary airspace opacities. Ground-glass opacities bilaterally. Tree-in-bud nodularities. Prior rib fractures. Limited chest ultrasound did not reveal fluid amenable for thoracentesis. COVID negative. Influenza negative. Supplemental oxygen Keep o2 saturation above 92% Continue antibiotics Obtain sputum culture Diflucan for 10 days due to tree in bud opacities. Continue bronchodilators continue mucolytics. Diurese with Lasix Monitor ins/outs Monitor renal function and electrolytes. Supplement as necessary. DVT prophylaxis. Prognosis: Poor given multiple comorbidities. Rest of plan per hospitalist and other consultants. Thank you JENNIFER Lou for allowing me to participate in this patient's care. Further recommendations will depend on patient's clinical course. Please do not hesitate to contact me if you have any questions or concerns. This medical document was created using an electronic medical record system with [employer] dictation system. Although this document has been carefully reviewed, there may still be some phonetic and typographical errors. These areas are purely typographical due to imperfections of the software programs, and do not reflect any compromise in the patient's medical care. Dietary Evaluation Review Comments: Continue current plan of care Expected Outcomes/Goals: To meet >75% estimated needs Fu 3-5 days Plan discussed with: Patient, Other (SHAKIR Baltazar) ДМИТРИЙ BOSWELL MD January 26, 2025 22:20
[2025-01-27] VITALS (14 sets, daily range): BP systolic 120–144; BP diastolic 57–77; PULSE 67–90; RESP 14–21; TEMP 97.7–98.4; O2SAT 90–99
[2025-01-27 06:23] LABS: Basophils # (auto) 0 10 ^3/uL (0-0.2); Basophils % (auto) 0.3 % (0.0-2.0); Eosinophils # (auto) 0.5 10 ^3/uL (0-0.8); Eosinophils % (auto) 4.8 % (0.0-7.0); Hematocrit 29.2 % (41.0-53.0); Lymphocytes # (auto) 1.2 10 ^3/uL (0.4-5.4); Lymphocytes % (auto) 12.2 % (10.0-50.0); Mean Corpuscular Hemoglobin 27.9 pg (28.0-32.0); Mean Corpuscular Hgb Conc. 34.4 g/dL (32.0-36.0); Monocytes % (auto) 10.5 % (0.0-12.0); Neutrophils % (auto) 72.2 % (37.0-80.0); Platelet Count (auto) 422 10^3/uL (140-450); Red Cell Distribution Width 13.6 % (11.8-14.3); White Blood Cell 9.7 10^3/uL (4.4-10.8)
[2025-01-27 06:32] LABS: Anion Gap 10 (5-15); Calcium 9.3 mg/dL (8.7-10.4); Carbon Dioxide 24 mmol/L (20-31); Potassium 4.3 mmol/L (3.5-5.1)
[2025-01-27 06:38] LABS: Glucose 94 mg/dL (74-106)
[2025-01-27 06:39] LABS: Blood Urea Nitrogen 20 mg/dL (9-23)
[2025-01-27 06:53] LABS: Chloride 95 mmol/L (98-107); Sodium 129 mmol/L (136-145)
--- NOTE | 2025-01-27 09:33 | DVH ---
CHEST RADIOGRAPH Indication: pna Technique: Single frontal view of the chest was obtained COMPARISON: XY CHEST XRAY 1 VIEW on DOS: 01/25/25, XY CHEST PORTABLE on DOS: 01/22/25, XY CHEST XRAY 1 VIEW on DOS: 07/28/24, XY CHEST PORTABLE on DOS: 07/27/24, CHEST PORTABLE on DOS: 01/22/22 FINDINGS: Lines and Tubes: None Lungs: Multifocal airspace disease Pleura: No effusion. No pneumothorax. Cardiomediastinal contours: Unremarkable Bones: Unremarkable IMPRESSION: Multifocal airspace disease with slight interval improvement in aeration in the left upper lobe.
--- NOTE | 2025-01-27 16:32 | DVHPN2 ---
Subjective in bed resting Reviewed: Care Plan, Labs, Medications Changes from previous H/P or p: No Changes General: Per HPI Eyes: No Pain, No Vision change, No Conjunctivae inflammation, No Eyelid inflammation, No Other, No Redness ENT: No Ear pain, No Ear discharge, No Nose pain, No Nose discharge, No Nose congestion, No Mouth pain, No Mouth swelling, No Throat pain, No Throat swelling, No Other Cardiovascular: No Chest Pain, No Palpitations, No Orthopnea, No Paroxysmal Noc. Dyspnea, No Edema, No Lt Headedness, No Other Respiratory: Cough; No Dry; Shortness of breath, SOB with excertion; No Wheezing, No Hemoptysis, No Pleuritic Pain; Sputum; No Other Gastrointestinal: No Nausea, No Vomiting, No Abdominal Pain, No Diarrhea, No Constipation, No Melena, No Hematochezia, No Other Genitourinary: No Dysuria, No Frequency, No Incontinence, No Hematuria, No Retention, No Other Musculoskeletal: No other, No neck pain, No shoulder pain, No arm pain, No back pain, No hand pain, No leg pain, No foot pain Skin: No Rash, No Lesions, No Jaundice, No Bruising, No Other Objective Vitals Vital Signs Date Time Temp Pulse Resp B/P (MAP) Pulse Ox O2 Delivery O2 Flow Rate FiO2 01/27/25 12:54 78 126/60 01/27/25 12:36 97.7 21 95 97.7 01/27/25 11:48 Nasal Cannula 2.0 01/27/25 11:48 28 Intake/Output Intake and Output 01/27/25 07:00 Intake Total 2850 ml Output Total 2350 ml Balance 500 ml Intake Oral 2250 ml IV Total 600 ml Output Urine Total 2350 ml # Bowel Movements 1 General Appearance: Alert, Oriented X3, Cooperative, mild distress HEENT: Atraumatic, PERRLA Lungs: Other (Bilateral rhonchi) Cardiovascular: Normal S1, Normal S2 Musculoskeletal: Normal sensory function, Normal motor function Skin: Dry, Intact Psych/Mental Status: Mental status NL, Mood NL Medications Current Medications Medications Dose Ordered Sig/Maria R Route Start Time Stop Time Status Last Admin Dose Admin Acetaminophen/ Hydrocodone Bitart 1 tab Q4HP PRN PO 01/22/25 16:30 01/24/25 05:46 1 TAB Ondansetron HCl 4 mg Q4HP PRN IV 5/12/25 16:30 Docusate Sodium 100 mg BIDPRN PRN PO 01/22/25 16:30 Acetaminophen 650 mg Q6HP PRN PO 01/22/25 16:30 01/24/25 09:54 650 MG Aspirin 81 mg DAILY PO 01/23/25 10:00 01/27/25 09:40 81 MG Carvedilol 3.125 mg Q12HR PO 01/22/25 22:00 01/27/25 09:43 3.125 MG Furosemide 20 mg DAILY PO 01/23/25 10:00 01/27/25 09:44 20 MG Losartan Potassium 50 mg DAILY PO 01/23/25 10:00 01/27/25 09:44 50 MG Memantine 5 mg BID PO 01/22/25 22:00 01/27/25 09:40 5 MG Patient Own Medication 20 mg DAILY PO 01/23/25 10:00 UNV Ticagrelor 90 mg BID PO 01/22/25 22:00 01/27/25 09:40 90 MG Atorvastatin Calcium 20 mg HS PO 01/22/25 22:00 01/26/25 22:26 20 MG Ipratropium [place] 0.5 mg Q6HWA [facility] 01/23/25 06:00 01/27/25 11:48 0.5 MG Albuterol 2.5 mg Q6HWA [facility] 01/23/25 06:00 01/27/25 11:48 2.5 MG Vancomycin HCl 0 ml @ 0 mls/hr UD IV 01/23/25 14:00 Fluconazole 100 ml @ 100 mls/hr 10,11 IV 01/24/25 10:00 01/27/25 12:44 100 MLS/HR Vancomycin HCl 250 ml @ 200 mls/hr Q24H IV 01/24/25 11:00 01/27/25 11:46 200 MLS/HR Cefepime HCl 50 ml @ 12.5 mls/hr Q8HR IV 01/25/25 22:00 01/27/25 14:44 12.5 MLS/HR Laboratory Results Laboratory Tests 01/27/25 04:59 Chemistry Test 01/27/25 04:59 Calcium Level 9.3 mg/dL (8.7-10.4) Urinalysis Test 5/12/25 12:14 Urine Color Colorless (Yellow) Urine Clarity Clear (Clear) Urine pH 5.5 (5.0-9.0) Urine Specific [place] 1.008 (1.001-1.035) Urine Protein Negative (Negative) Urine Ketones Negative (Negative) Urine Blood Negative /uL (Negative) Urine Nitrite Negative (Negative) Urine Bilirubin Negative (Negative) Urine Urobilinogen Normal mg/dL (Negative) Urine Leukocyte Esterase Negative /uL (Negative) Urine RBC None seen /hpf (0 - 3) Urine Microscopic WBC < 1 /HPF (0-3) Urine Squamous Epithelial Cells None seen /hpf (<5) Urine Bacteria None seen /hpf (None Seen) Urine Glucose Normal mg/dL (Normal) Assessment/Plan Assessment/Plan -acute hypoxic respiratory failure -bilateral pneumonia -decompensated heart failure ruled out -coronary artery disease with previous stent placement -primary hypertension -dyslipidemia -history of CVA Plan: Events: No Events overnight. Nasal cannula at 2 L/min. Noted severe dyspnea with ambulation to the bathroom this a.m.. -continue dual antiplatelet therapy -continue cefepime and vancomycin. Diflucan added per pulmonology -pulmonary consultation: Recommendations reviewed -bronchodilators, add Mucomyst -repeat labs and chest x-ray in a.m. Total time spent with patient discussing and formulating plan of care: 35 minutes. Plan discussed with: Patient Date of Service: January 27, 2025 Billing Provider: AZ MENDOZA MD Common Visit Codes: [id number] INP/OBS CARE(HIGH) AZ MENDOZA MD January 27, 2025 16:32
--- NOTE | 2025-01-27 19:43 | DVHPN2 ---
Progress Note - Dictate Date Seen: January 27, 2025 Medical Necessity Reason Pt with a Central, PICC or Fol: No Subjective Patient seen and examined at bedside. Remains on supplemental oxygen Overnight events reviewed. vital signs Vital Sign Date Time Temp Pulse Resp B/P (MAP) Pulse Ox O2 Delivery O2 Flow Rate FiO2 01/27/25 19:22 83 18 96 01/27/25 19:22 Nasal Cannula* 2 28 01/27/25 16:43 98.0 144/59 (87) 98.0 Total Intake and Output 01/26/25 01/26/25 01/27/25 15:00 23:00 07:00 Intake Total 500 ml 1450 ml 900 ml Output Total 950 ml 1400 ml Balance 500 ml 500 ml -500 ml medications Current Medications Medications Dose Ordered Sig/Maria R Route Start Time Stop Time Status Last Admin Dose Admin Acetaminophen/ Hydrocodone Bitart 1 tab Q4HP PRN PO 01/22/25 16:30 01/24/25 05:46 1 TAB Ondansetron HCl 4 mg Q4HP PRN IV 01/22/25 16:30 Docusate Sodium 100 mg BIDPRN PRN PO 01/22/25 16:30 Acetaminophen 650 mg Q6HP PRN PO 01/22/25 16:30 01/24/25 09:54 650 MG Aspirin 81 mg DAILY PO 01/23/25 10:00 01/27/25 09:40 81 MG Carvedilol 3.125 mg Q12HR PO 01/22/25 22:00 01/27/25 09:43 3.125 MG Furosemide 20 mg DAILY PO 01/23/25 10:00 01/27/25 09:44 20 MG Losartan Potassium 50 mg DAILY PO 01/23/25 10:00 01/27/25 09:44 50 MG Memantine 5 mg BID PO 01/22/25 22:00 01/27/25 09:40 5 MG Patient Own Medication 20 mg DAILY PO 01/23/25 10:00 UNV Ticagrelor 90 mg BID PO 01/22/25 22:00 01/27/25 09:40 90 MG Atorvastatin Calcium 20 mg HS PO 01/22/25 22:00 01/26/25 22:26 20 MG Ipratropium [place] 0.5 mg Q6HWA NEB 01/23/25 06:00 01/27/25 19:22 0.5 MG Albuterol 2.5 mg Q6HWA NEB 01/23/25 06:00 01/27/25 19:22 2.5 MG Vancomycin HCl 0 ml @ 0 mls/hr UD IV 01/23/25 14:00 Fluconazole 100 ml @ 100 mls/hr 10,11 IV 01/24/25 10:00 01/27/25 12:44 100 MLS/HR Cefepime HCl 50 ml @ 12.5 mls/hr Q8HR IV 01/25/25 22:00 01/27/25 14:44 12.5 MLS/HR Vancomycin HCl 300 ml @ 200 mls/hr Q24H IV 01/28/25 11:00 objective Gen.: Patient lying in bed in no apparent distress. On supplemental oxygen. Head: Normocephalic, atraumatic. Eyes: EOMI/PERRLA. Ears: Normal hearing. Normal anatomy. Neck/trachea: Trachea midline, supple. Nose: Normal external anatomy. Mouth: Moist mucous membranes. Chest: Decreased air entry bilaterally. No wheezing or rhonchi. Cardiovascular: Positive S1, positive S2. Regular rate and rhythm. Abdomen: Positive bowel sounds in all 4 quadrants. Soft, non-tender, non- distended. : Deferred. Rectal: Deferred. Skin: Warm, dry. Intact. Extremities: 2+ radial pulses bilaterally. No lower extremity edema. Neuro: Awake, alert, oriented x3. No gross motor or sensory deficits. Cranial nerves II through XII intact. Gait not assessed. laboratory and microbiology Laboratory Tests 01/27/25 04:59 Test 01/27/25 04:59 Range/Units Serum Glucose 94 74-106 mg/dL Assessment/Plan Impression: Acute hypoxic respiratory failure Granulomatous disease Lymphadenopathy Pleural effusions, small bilateral Ground-glass opacities on imaging Atelectasis History of rib fractures KARL pulmonary nodule, 11 mm Events: Remains on supplemental oxygen, 2 LPM NC Taper O2 as tolerated - goal is room air Assess for home O2 requirements CXR done today reviewed; multifocal airspace disease with slight interval improvement in aeration in the left upper lobe. Bronchodilators PRN Continue antibiotics/antifungals Incentive spirometry Continue Lasix PO to maintain euvolemia Monitor renal function Monitor electrolytes. Supplement as necessary. Monitor ins and outs. PT. Disposition per hospitalist. KARL pulmonary nodule 11 mm: Recommend to complete abx and repeat CT chest in 4-8 weeks to document resolution of opacity. Labs and imaging reviewed. Rest of plan as noted below. Plan: COVID negative. Influenza negative. Supplemental oxygen Keep o2 saturation above 92% Continue antibiotics Obtain sputum culture Diflucan for 10 days due to tree in bud opacities. Continue bronchodilators continue mucolytics. Diurese with Lasix Monitor ins/outs Monitor renal function and electrolytes. Supplement as necessary. DVT prophylaxis. Prognosis: Poor given multiple comorbidities. Rest of plan per hospitalist and other consultants. Thank you JENNIFER Lou for allowing me to participate in this patient's care. Further recommendations will depend on patient's clinical course. Please do not hesitate to contact me if you have any questions or concerns. This medical document was created using an electronic medical record system with [employer] dictation system. Although this document has been carefully reviewed, there may still be some phonetic and typographical errors. These areas are purely typographical due to imperfections of the software programs, and do not reflect any compromise in the patient's medical care. Dietary Evaluation Review Comments: Continue current plan of care Expected Outcomes/Goals: To meet >75% estimated needs Fu 3-5 days Plan discussed with: Patient, Other (SHAKIR Hicks) ДМИТРИЙ BOSWELL MD January 27, 2025 19:43
[2025-01-28] VITALS (17 sets, daily range): BP systolic 113–161; BP diastolic 49–89; PULSE 68–88; RESP 14–18; TEMP 97.4–98.1; O2SAT 91–100
[2025-01-28 06:28] LABS: Basophils # (auto) 0 10 ^3/uL (0-0.2); Basophils % (auto) 0.4 % (0.0-2.0); Eosinophils # (auto) 0.6 10 ^3/uL (0-0.8); Hematocrit 30.8 % (41.0-53.0); Hemoglobin 10.6 g/dL (13.5-17.5); Lymphocytes # (auto) 1.2 10 ^3/uL (0.4-5.4); Lymphocytes % (auto) 13.2 % (10.0-50.0); Mean Corpuscular Hemoglobin 27.8 pg (28.0-32.0); Mean Corpuscular Hgb Conc. 34.3 g/dL (32.0-36.0); Monocytes % (auto) 10.6 % (0.0-12.0); Neutrophils # (auto) 6.4 10 ^3/uL (1.6-8.6); Neutrophils % (auto) 69.8 % (37.0-80.0); Platelet Count (auto) 454 10^3/uL (140-450); Red Cell Distribution Width 13.7 % (11.8-14.3); White Blood Cell 9.3 10^3/uL (4.4-10.8)
[2025-01-28] MEDS: VANCOMYCIN 1.5GM/300ML 300 ML IV SCH (12:11)
--- NOTE | 2025-01-28 14:12 | DVHPN2 ---
Subjective in bed resting Reviewed: Care Plan, Labs, Medications Changes from previous H/P or p: No Changes General: Per HPI Eyes: No Pain, No Vision change, No Conjunctivae inflammation, No Eyelid inflammation, No Other, No Redness ENT: No Ear pain, No Ear discharge, No Nose pain, No Nose discharge, No Nose congestion, No Mouth pain, No Mouth swelling, No Throat pain, No Throat swelling, No Other Cardiovascular: No Chest Pain, No Palpitations, No Orthopnea, No Paroxysmal Noc. Dyspnea, No Edema, No Lt Headedness, No Other Respiratory: Cough; No Dry; Shortness of breath, SOB with excertion; No Wheezing, No Hemoptysis, No Pleuritic Pain; Sputum; No Other Gastrointestinal: No Nausea, No Vomiting, No Abdominal Pain, No Diarrhea, No Constipation, No Melena, No Hematochezia, No Other Genitourinary: No Dysuria, No Frequency, No Incontinence, No Hematuria, No Retention, No Other Musculoskeletal: No other, No neck pain, No shoulder pain, No arm pain, No back pain, No hand pain, No leg pain, No foot pain Skin: No Rash, No Lesions, No Jaundice, No Bruising, No Other Objective Vitals Vital Signs Date Time Temp Pulse Resp B/P (MAP) Pulse Ox O2 Delivery O2 Flow Rate FiO2 01/28/25 12:15 79 14 100 01/28/25 10:30 Nasal Cannula* 1 24 01/28/25 09:37 161/70 01/28/25 09:00 97.4 97.4 Intake/Output Intake and Output 01/28/25 07:00 Intake Total 1980 ml Output Total 2000 ml Balance -20 ml Intake Oral 1380 ml IV Total 600 ml Output Urine Total 2000 ml # Voids 4 # Bowel Movements 1 General Appearance: Alert, Oriented X3, Cooperative, mild distress HEENT: Atraumatic, PERRLA Lungs: Other (Bilateral rhonchi) Cardiovascular: Normal S1, Normal S2 Musculoskeletal: Normal sensory function, Normal motor function Skin: Dry, Intact Psych/Mental Status: Mental status NL, Mood NL Medications Current Medications Medications Dose Ordered Sig/Maria R Route Start Time Stop Time Status Last Admin Dose Admin Acetaminophen/ Hydrocodone Bitart 1 tab Q4HP PRN PO 01/22/25 16:30 01/24/25 05:46 1 TAB Ondansetron HCl 4 mg Q4HP PRN IV 01/22/25 16:30 Docusate Sodium 100 mg BIDPRN PRN PO 01/22/25 16:30 Acetaminophen 650 mg Q6HP PRN PO 01/22/25 16:30 01/24/25 09:54 650 MG Aspirin 81 mg DAILY PO 01/23/25 10:00 01/28/25 09:36 81 MG Carvedilol 3.125 mg Q12HR PO 01/22/25 22:00 01/28/25 09:37 3.125 MG Furosemide 20 mg DAILY PO 01/23/25 10:00 01/28/25 09:37 20 MG Losartan Potassium 50 mg DAILY PO 01/23/25 10:00 01/28/25 09:37 50 MG Memantine 5 mg BID PO 01/22/25 22:00 01/28/25 09:36 5 MG Patient Own Medication 20 mg DAILY PO 01/23/25 10:00 UNV Ticagrelor 90 mg BID PO 01/22/25 22:00 01/28/25 09:36 90 MG Atorvastatin Calcium 20 mg HS PO 01/22/25 22:00 01/27/25 21:29 20 MG Ipratropium [place] 0.5 mg Q6HWA [facility] 01/23/25 06:00 01/28/25 12:06 0.5 MG Albuterol 2.5 mg Q6HWA [facility] 01/23/25 06:00 01/28/25 12:06 2.5 MG Vancomycin HCl 0 ml @ 0 mls/hr UD IV 01/23/25 14:00 Fluconazole 100 ml @ 100 mls/hr 10,11 IV 01/24/25 10:00 01/28/25 11:44 100 MLS/HR Cefepime HCl 50 ml @ 12.5 mls/hr Q8HR IV 01/25/25 22:00 01/28/25 05:39 12.5 MLS/HR Vancomycin HCl 300 ml @ 200 mls/hr Q24H IV 01/28/25 11:00 01/28/25 12:11 200 MLS/HR Laboratory Results Laboratory Tests 01/27/25 04:59 01/28/25 05:51 Urinalysis Test 01/22/25 12:14 Urine Color Colorless (Yellow) Urine Clarity Clear (Clear) Urine pH 5.5 (5.0-9.0) Urine Specific [place] 1.008 (1.001-1.035) Urine Protein Negative (Negative) Urine Ketones Negative (Negative) Urine Blood Negative /uL (Negative) Urine Nitrite Negative (Negative) Urine Bilirubin Negative (Negative) Urine Urobilinogen Normal mg/dL (Negative) Urine Leukocyte Esterase Negative /uL (Negative) Urine RBC None seen /hpf (0 - 3) Urine Microscopic WBC < 1 /HPF (0-3) Urine Squamous Epithelial Cells None seen /hpf (<5) Urine Bacteria None seen /hpf (None Seen) Urine Glucose Normal mg/dL (Normal) Microbiology Microbiology Date/Time Source Procedure Growth Status 01/28/25 09:00 Lung Pending Resulted 01/28/25 09:00 Lung Pending Resulted 01/28/25 09:00 Lung Pending Resulted 01/28/25 09:00 Lung Pending Resulted 01/28/25 09:00 Lung - Final See Separate Report... Resulted Assessment/Plan Assessment/Plan -acute hypoxic respiratory failure -bilateral pneumonia -decompensated heart failure ruled out -coronary artery disease with previous stent placement -primary hypertension -dyslipidemia -history of CVA Plan: He is improving and down to 1L -continue dual antiplatelet therapy -continue cefepime and vancomycin. Diflucan added per pulmonology -pulmonary consultation: Recommendations reviewed -bronchodilators, add Mucomyst -repeat labs and chest x-ray in a.m. Total time spent with patient discussing and formulating plan of care: 35 minutes. Plan discussed with: Patient Date of Service: January 28, 2025 Billing Provider: AZ MENDOZA MD Common Visit Codes: [id number] INP/OBS CARE(HIGH) AZ MENDOZA MD January 28, 2025 14:12
--- NOTE | 2025-01-28 23:01 | DVHPN2 ---
Progress Note - Dictate Date Seen: January 28, 2025 Medical Necessity Reason Pt with a Central, PICC or Fol: No Subjective Patient seen and examined at bedside. Remains on supplemental oxygen Overnight events reviewed. vital signs Vital Sign Date Time Temp Pulse Resp B/P (MAP) Pulse Ox O2 Delivery O2 Flow Rate FiO2 01/28/25 21:26 85 143/62 01/28/25 21:00 98.1 16 91 98.1 01/28/25 20:00 Room Air* 0 21 Total Intake and Output 01/27/25 01/27/25 01/28/25 15:00 23:00 07:00 Intake Total 500 ml 950 ml 530 ml Output Total 550 ml 175 ml 1275 ml Balance -50 ml 775 ml -745 ml medications Current Medications Medications Dose Ordered Sig/Maria R Route Start Time Stop Time Status Last Admin Dose Admin Acetaminophen/ Hydrocodone Bitart 1 tab Q4HP PRN PO 01/22/25 16:30 01/24/25 05:46 1 TAB Ondansetron HCl 4 mg Q4HP PRN IV 01/22/25 16:30 Docusate Sodium 100 mg BIDPRN PRN PO 01/22/25 16:30 Acetaminophen 650 mg Q6HP PRN PO 01/22/25 16:30 01/24/25 09:54 650 MG Aspirin 81 mg DAILY PO 01/23/25 10:00 01/28/25 09:36 81 MG Carvedilol 3.125 mg Q12HR PO 01/22/25 22:00 01/28/25 21:26 3.125 MG Furosemide 20 mg DAILY PO 01/23/25 10:00 01/28/25 09:37 20 MG Losartan Potassium 50 mg DAILY PO 01/23/25 10:00 01/28/25 09:37 50 MG Memantine 5 mg BID PO 01/22/25 22:00 01/28/25 21:25 5 MG Patient Own Medication 20 mg DAILY PO 01/23/25 10:00 UNV Ticagrelor 90 mg BID PO 01/22/25 22:00 01/28/25 21:25 90 MG Atorvastatin Calcium 20 mg HS PO 01/22/25 22:00 01/28/25 21:25 20 MG Ipratropium [place] 0.5 mg Q6HWA NEB 01/23/25 06:00 01/28/25 18:54 0.5 MG Albuterol 2.5 mg Q6HWA NEB 01/23/25 06:00 01/28/25 18:54 2.5 MG Vancomycin HCl 0 ml @ 0 mls/hr UD IV 01/23/25 14:00 Fluconazole 100 ml @ 100 mls/hr 10,11 IV 01/24/25 10:00 01/28/25 11:44 100 MLS/HR Cefepime HCl 50 ml @ 12.5 mls/hr Q8HR IV 01/25/25 22:00 01/28/25 21:25 12.5 MLS/HR Vancomycin HCl 300 ml @ 200 mls/hr Q24H IV 01/28/25 11:00 01/28/25 12:11 200 MLS/HR objective Gen.: Patient lying in bed in no apparent distress. On supplemental oxygen. Head: Normocephalic, atraumatic. Eyes: EOMI/PERRLA. Ears: Normal hearing. Normal anatomy. Neck/trachea: Trachea midline, supple. Nose: Normal external anatomy. Mouth: Moist mucous membranes. Chest: Decreased air entry bilaterally. No wheezing or rhonchi. Cardiovascular: Positive S1, positive S2. Regular rate and rhythm. Abdomen: Positive bowel sounds in all 4 quadrants. Soft, non-tender, non- distended. : Deferred. Rectal: Deferred. Skin: Warm, dry. Intact. Extremities: 2+ radial pulses bilaterally. No lower extremity edema. Neuro: Awake, alert, oriented x3. No gross motor or sensory deficits. Cranial nerves II through XII intact. Gait not assessed. laboratory and microbiology Laboratory Tests 01/28/25 05:51 01/27/25 04:59 Test 01/27/25 04:59 Range/Units Serum Glucose 94 74-106 mg/dL Assessment/Plan Impression: Acute hypoxic respiratory failure Granulomatous disease Lymphadenopathy Pleural effusions, small bilateral Ground-glass opacities on imaging Atelectasis History of rib fractures KARL pulmonary nodule, 11 mm Events: Remains on supplemental oxygen, 2 LPM NC Taper O2 as tolerated - goal is room air Assess for home O2 requirements CXR on 01/27 revealed multifocal airspace disease with slight interval improvement in aeration in the left upper lobe. Bronchodilators PRN Continue antibiotics/antifungals Incentive spirometry Continue Lasix PO to maintain euvolemia Monitor renal function Monitor electrolytes. Supplement as necessary. Monitor ins and outs. PT. Disposition per hospitalist. KARL pulmonary nodule 11 mm: Recommend to complete abx and repeat CT chest in 4-8 weeks to document resolution of opacity. Labs and imaging reviewed. Rest of plan as noted below. Plan: COVID negative. Influenza negative. Supplemental oxygen Keep o2 saturation above 92% Continue antibiotics Obtain sputum culture Diflucan for 10 days due to tree in bud opacities. Continue bronchodilators continue mucolytics. Diurese with Lasix Monitor ins/outs Monitor renal function and electrolytes. Supplement as necessary. DVT prophylaxis. Prognosis: Poor given multiple comorbidities. Rest of plan per hospitalist and other consultants. Thank you JENNIFER Lou for allowing me to participate in this patient's care. Further recommendations will depend on patient's clinical course. Please do not hesitate to contact me if you have any questions or concerns. This medical document was created using an electronic medical record system with [email or web address] dictation system. Although this document has been carefully reviewed, there may still be some phonetic and typographical errors. These areas are purely typographical due to imperfections of the software programs, and do not reflect any compromise in the patient's medical care. Dietary Evaluation Review Comments: Continue current plan of care Expected Outcomes/Goals: To meet >75% estimated needs Fu 3-5 days Plan discussed with: Patient, Other (SHAKIR Hicks) ДМИТРИЙ BOSWELL MD January 28, 2025 23:01
[2025-01-29] VITALS (9 sets, daily range): BP systolic 106–149; BP diastolic 62–85; PULSE 68–95; RESP 16–18; TEMP 97.2–98.1; O2SAT 91–100
[2025-01-29 07:21] LABS: Basophils # (auto) 0.1 10 ^3/uL (0-0.2); Eosinophils # (auto) 0.6 10 ^3/uL (0-0.8); Hemoglobin 10.4 g/dL (13.5-17.5); Lymphocytes # (auto) 1.5 10 ^3/uL (0.4-5.4)
[2025-01-29 07:24] LABS: Basophils % (auto) 0.6 % (0.0-2.0); Eosinophils % (auto) 5.5 % (0.0-7.0); Hematocrit 31.2 % (41.0-53.0); Lymphocytes % (auto) 13.1 % (10.0-50.0); Mean Corpuscular Hemoglobin 27.1 pg (28.0-32.0); Mean Corpuscular Hgb Conc. 33.4 g/dL (32.0-36.0); Mean Corpuscular Volume 81.1 fL (80.0-100.0); Monocytes % (auto) 9.3 % (0.0-12.0); Neutrophils % (auto) 71.5 % (37.0-80.0); Platelet Count (auto) 493 10^3/uL (140-450); Red Blood Cells 3.84 10^6/uL (4.5-5.90); Red Cell Distribution Width 13.8 % (11.8-14.3); White Blood Cell 11.2 10^3/uL (4.4-10.8)
--- NOTE | 2025-01-29 11:51 | DVHDS2 ---
Discharge Summary Date of Admission January 22, 2025 at 16:21 Date of Discharge: January 29, 2025 Admitting Diagnosis Pulmonary edema Labs/Diagnostic Data: Laboratory Results Test 01/29/25 06:39 01/27/25 09:45 01/27/25 04:59 01/26/25 06:19 White Blood Count 11.2 10^3/uL (4.4-10.8) Red Blood Count 3.84 10^6/uL (4.5-5.90) Hemoglobin 10.4 g/dL (13.5-17.5) Hematocrit 31.2 % (41.0-53.0) Mean Corpuscular Volume 81.1 fL (80.0-100.0) Mean Corpuscular Hemoglobin 27.1 pg (28.0-32.0) Mean Corpuscular Hemoglobin Concent 33.4 g/dL (32.0-36.0) Red Cell Distribution Width 13.8 % (11.8-14.3) Platelet Count 493 10^3/uL (140-450) Mean Platelet Volume 7.8 fL (6.9-10.8) Neutrophils (%) (Auto) 71.5 % (37.0-80.0) Lymphocytes (%) (Auto) 13.1 % (10.0-50.0) Monocytes (%) (Auto) 9.3 % (0.0-12.0) Eosinophils (%) (Auto) 5.5 % (0.0-7.0) Basophils (%) (Auto) 0.6 % (0.0-2.0) Neutrophils # (Auto) 8.0 10 ^3/uL (1.6-8.6) Lymphocytes # (Auto) 1.5 10 ^3/uL (0.4-5.4) Monocytes # (Auto) 1.0 10 ^3/uL (0-1.3) Eosinophils # (Auto) 0.6 10 ^3/uL (0-0.8) Basophils # (Auto) 0.1 10 ^3/uL (0-0.2) Nucleated Red Blood Cells 0.0 % Creatinine 1.02 mg/dL (0.700-1.30) Glomerular Filtration Rate Calc 75 mL/min (>90) Vancomycin Level Trough 9.2 ug/mL (5-10) Sodium Level 129 mmol/L (136-145) Potassium Level 4.3 mmol/L (3.5-5.1) Chloride Level 95 mmol/L (98-107) Carbon Dioxide Level 24 mmol/L (20-31) Anion Gap 10 (5-15) Blood Urea Nitrogen 20 mg/dL (9-23) BUN/Creatinine Ratio 22.0 (10.0-20.0) Serum Glucose 94 mg/dL (74-106) Calcium Level 9.3 mg/dL (8.7-10.4) Total Bilirubin 0.7 mg/dL (0.2-1.0) Aspartate Amino Transferase (AST) 38 U/L (13-40) Alanine Aminotransferase (ALT) 93 U/L (7-40) Alkaline Phosphatase 160 U/L (46-116) Total Protein 6.4 g/dL (5.7-8.2) Albumin 3.8 g/dL (3.2-4.8) Test 01/24/25 06:17 01/23/25 15:30 01/23/25 06:32 01/22/25 13:49 Random Vancomycin Level 9.5 ug/mL (5-10) Influenza Type A Antigen Negative (Negative) Influenza Type B Antigen Negative (Negative) SARS-CoV-2 Antigen (Rapid) Negative (NEGATIVE) B-Type Natriuretic Peptide 104.70 pg/mL (0-100) Troponin I High Sensitivity 13 ng/L (</=54) Test 01/22/25 12:14 01/22/25 10:11 Urine Color Colorless (Yellow) Urine Clarity Clear (Clear) Urine pH 5.5 (5.0-9.0) Urine Specific Robinson 1.008 (1.001-1.035) Urine Protein Negative (Negative) Urine Ketones Negative (Negative) Urine Blood Negative /uL (Negative) Urine Nitrite Negative (Negative) Urine Bilirubin Negative (Negative) Urine Urobilinogen Normal mg/dL (Negative) Urine Leukocyte Esterase Negative /uL (Negative) Urine RBC None seen /hpf (0 - 3) Urine Microscopic WBC < 1 /HPF (0-3) Urine Squamous Epithelial Cells None seen /hpf (<5) Urine Bacteria None seen /hpf (None Seen) Urine Glucose Normal mg/dL (Normal) POC Glucose 133 mg/dl (70-106) Other Laboratory Tests 01/29/25 06:39 01/27/25 04:59 Brief Hx & Hospital Course: History of Present Illness Ralph Welsh is a 79-year-old male with past medical history of hypertension, hyperlipidemia, dementia, and diabetes, who came in for generalized weakness and cough. Patient states he has been experiencing cough, shortness of breath, and chest pain for about a month. He went to urgent care a couple weeks ago, but his symptoms persist. He states the shortness of breath is worse with exertion, and that he is coughing up white phlegm. Patient and family also state that the patient fell out of his wheel chair on Wednesday. He states he slide out of it, did not hit his head, and did not lose consciousness. Course of hospitalization: Patient had CT scan of the chest which revealed bilateral multifocal pneumonia. Given findings, pulmonology consultation was obtained. Patient has been weaned off of oxygen after receiving a total of seven day course of IV antibiotics and antifungals. Patient has been ambulating around his room without any noted dyspnea. Patient will be discharged with continuation of antibiotic therapy via cefdinir 300 mg p.o. b.i.d. times an additional seven days, as well as continuation with Diflucan 200 mg p.o. daily for additional nine days to complete a two week course as recommended by pulmonology. Patient will follow up with the discharge Clinic to obtain lung biopsy results. Patient's daughter agreeable with discharge plan. All questions answered. Physical examination General: Alert and Oriented x3. No acute distress. Well-nourished. Eyes: EOMI. Anicteric. HENT: Moist mucous membranes. Lungs: Clear to auscultation bilaterally. No accessory muscle use. Cardiovascular: Regular rate and rhythm. No murmur. No JVD. Abdomen: Soft, non-tender and non-distended. No palpable masses. Extremities: No edema. Non-tender. Skin: No rashes or lesions. Warm. Neurologic: No focal neurological deficits. CN II-XII grossly intact, but not individually tested. Psychiatric: Cooperative. Appropriate mood and affect. Total time spent with patient discussing and formulating plan of care: 35 minutes. This medical document was created using an electronic medical record system with [employer] system. Although this document has been carefully reviewed, there may still be some phonetic and typographical errors. These areas are purely typographical due to imperfections of the software programs, and do not reflect any compromise in the patient's medical care. Consults/Reason for consult Pulmonology: Multifocal atypical pneumonia Condition at Discharge: Guarded Final Diagnosis/Problems List Acute hypoxic Respiratory Failure Secondary diagnosis: -acute hypoxic respiratory failure -bilateral pneumonia -decompensated heart failure ruled out -coronary artery disease with previous stent placement -primary hypertension -dyslipidemia -history of CVA Discharge Disposition: Home Discharge Instruct/Medications Diet: Cardiac 2g Na,low cholest Activity: No Restrictions, As Tolerated Follow Up/Referral: Dc clinic in 1 week. Pt will obtain lung biopsy results Medications: Diflucan 200mg po daily x 9 days Cefdinir 300mg po bid x 7 days 36 Discharge Statement: "Patient was advised to return to the ER or call 911 if any headaches, dizziness, shortness of breath, chest pain, abdominal pain, bleeding, fevers, or worsening of medical condition. Patient was counseled about treatment plan, medications, possible side effects, patientverbalized understanding. All questions were answered to the best of my ability. This discharge took greater then 30 minutes in planning, reviewing documentation, counseling the patient, and discussing with other team members." ASSESSMENT ASSESSMENT Assessment Acute hypoxic Respiratory Failure Date of Service: January 29, 2025 Billing Provider: PREMA QUACH NP Common Visit Codes: 39728-HXL/OBS DISCH DAY >30min PREMA QUACH NP January 29, 2025 11:51
--- NOTE | 2025-01-29 11:55 | DVHPN2 ---
Progress Note - Dictate Date Seen: January 29, 2025 Medical Necessity Reason Pt with a Central, PICC or Fol: No vital signs Vital Sign Date Time Temp Pulse Resp B/P (MAP) Pulse Ox O2 Delivery O2 Flow Rate FiO2 01/29/25 10:35 149/68 01/29/25 10:35 68 01/29/25 08:42 97.2 16 94 97.2 01/29/25 08:00 Room Air* 0 21 Total Intake and Output 01/28/25 01/28/25 01/29/25 15:00 23:00 07:00 Intake Total 568.75 ml 1280 ml 400 ml Output Total 725 ml 1700 ml Balance 568.75 ml 555 ml -1300 ml medications Current Medications Medications Dose Ordered Sig/Maria R Route Start Time Stop Time Status Last Admin Dose Admin Acetaminophen/ Hydrocodone Bitart 1 tab Q4HP PRN PO 01/22/25 16:30 01/24/25 05:46 1 TAB Ondansetron HCl 4 mg Q4HP PRN IV 01/22/25 16:30 Docusate Sodium 100 mg BIDPRN PRN PO 01/22/25 16:30 Acetaminophen 650 mg Q6HP PRN PO 01/22/25 16:30 01/24/25 09:54 650 MG Aspirin 81 mg DAILY PO 01/23/25 10:00 01/29/25 10:35 81 MG Carvedilol 3.125 mg Q12HR PO 01/22/25 22:00 01/29/25 10:35 3.125 MG Furosemide 20 mg DAILY PO 01/23/25 10:00 01/29/25 10:35 20 MG Losartan Potassium 50 mg DAILY PO 01/23/25 10:00 01/29/25 10:35 50 MG Memantine 5 mg BID PO 01/22/25 22:00 01/29/25 10:35 5 MG Patient Own Medication 20 mg DAILY PO 01/23/25 10:00 UNV Ticagrelor 90 mg BID PO 01/22/25 22:00 01/29/25 10:36 90 MG Atorvastatin Calcium 20 mg HS PO 01/22/25 22:00 01/28/25 21:25 20 MG Ipratropium [place] 0.5 mg Q6HWA NEB 01/23/25 06:00 01/29/25 06:53 0.5 MG Albuterol 2.5 mg Q6HWA NEB 01/23/25 06:00 01/29/25 06:53 2.5 MG Vancomycin HCl 0 ml @ 0 mls/hr UD IV 01/23/25 14:00 Fluconazole 100 ml @ 100 mls/hr 10,11 IV 01/24/25 10:00 01/29/25 10:36 100 MLS/HR Cefepime HCl 50 ml @ 12.5 mls/hr Q8HR IV 01/25/25 22:00 01/29/25 05:10 12.5 MLS/HR Vancomycin HCl 300 ml @ 200 mls/hr Q24H IV 01/28/25 11:00 01/28/25 12:11 200 MLS/HR laboratory and microbiology Laboratory Tests 01/29/25 06:39 01/27/25 04:59 Test 01/27/25 04:59 Range/Units Serum Glucose 94 74-106 mg/dL Assessment/Plan Impression: Acute hypoxic respiratory failure Granulomatous disease Lymphadenopathy Pleural effusions, small bilateral Ground-glass opacities on imaging Atelectasis History of rib fractures KARL pulmonary nodule, 11 mm Events: Low oxygen requirements On room air No distress Labs and imaging reviewed KARL pulmonary nodule 11 mm: Recommend to complete abx and repeat CT chest in 4-8 weeks to document resolution of opacity. Plan: COVID negative. Influenza negative. Supplemental oxygen Keep o2 saturation above 92% Continue antibiotics F/u cultures Continue bronchodilators continue mucolytics. Diurese with Lasix Monitor ins/outs Monitor renal function and electrolytes. Supplement as necessary. DVT prophylaxis. Dietary Evaluation Review Comments: Continue current plan of care Expected Outcomes/Goals: To meet >75% estimated needs Fu 3-5 days Plan discussed with: Patient AL AMAYA MD January 29, 2025 11:55
[2025-01-30] MEDS ORDERED: FLUC100T PO (10:34)
[2025-01-30] MEDS ORDERED: CEFD300C2 PO (10:34)
== END 2025-01-29 17:30 | disposition home or self-care (01) | DRG 720 ==
LOC: ER 09:44 → OVERFLOW 16:21 → WEST WING 22:50
PROVIDERS: ADMIT Nurse Practitioner Acute Care; ATTEND Nurse Practitioner Acute Care
DX: A41.9 Sepsis, unspecified organism (principal); J96.01 Acute respiratory failure with hypoxia; J15.69 Pneumonia due to other Gram-negative bacteria; J90 Pleural effusion, not elsewhere classified; J15.9 Unspecified bacterial pneumonia; D71 Functional disorders of polymorphonuclear neutrophils; F03.90 Unspecified dementia, unspecified severity, without behavioral disturbance, psychotic disturbance, mood disturbance, and anxiety; I10 Essential (primary) hypertension; E78.5 Hyperlipidemia, unspecified; I25.10 Atherosclerotic heart disease of native coronary artery without angina pectoris; Z20.822 Contact with and (suspected) exposure to COVID-19; R59.1 Generalized enlarged lymph nodes; R91.1 Solitary pulmonary nodule; E11.9 Type 2 diabetes mellitus without complications; J98.11 Atelectasis; J98.4 Other disorders of lung; Z86.73 Personal history of transient ischemic attack (TIA), and cerebral infarction without residual deficits; Z95.1 Presence of aortocoronary bypass graft; Z95.5 Presence of coronary angioplasty implant and graft; Z79.82 Long term (current) use of aspirin; Z79.899 Other long term (current) drug therapy
CPT/HCPCS: 36415; 71045; 71250; 80048; 80053; 80202; 81001; 82565; 82962; 83880; 84484; 85025; 87426; 87804; 93005; 94640; 96365; 96368; 96375; 99291; G0378; J1450